=== PATIENT | male | born 1940 | race Caucasian/White ===

== ENCOUNTER → 2017-03-20 | Outpatient (CLI) | payer OTHER ==
[2017-03-20 13:03] LABS: BASO % 0.2 %; BASO ABS # 0.01 K/uL (0-0.2); COMPLETE YES; EOS % 1.5 %; HEMATOCRIT 36.9 % (42-52); IG% 0.2 %; LYMPH % 18.9 %; LYMPH ABS # 0.76 K/uL (1.2-3.4); MEAN CELL VOLUME 97.9 fL (80-100); MEAN CORPUSCULAR HEMOGLOBIN 33.2 pg (25-34); MEAN CORPUSCULAR HGB CONC 33.9 g/dl (32-36); MEAN PLATELET VOLUME 8.9 fL (7.4-10.4); MONO % 10.4 %; NEUT % 68.8 %; PLATELET COUNT 158 K/uL (130-400); RED BLOOD COUNT 3.77 M/uL (4.7-6.1); WHITE BLOOD COUNT 4.03 K/uL (4.8-10.8)
[2017-03-20 13:32] LABS: ALT/SGPT 27 U/L (12-78); AST/SGOT 16 U/L (15-37); BLOOD UREA NITROGEN 19 mg/dl (7-18); BUN/CREATININE RATIO 18.5 (10-20); CALCIUM 9.8 mg/dl (8.5-10.1); CARBON DIOXIDE 28 mmol/L (21-32); CHLORIDE 110 mmol/L (98-107); GLUCOSE 99 mg/dl (70-99); POTASSIUM 4.2 mmol/L (3.5-5.1); SODIUM 143 mmol/L (136-145)
[2017-03-20 13:44] LABS: ALB/GLOB RATIO 1.2 (0.9-2); ALKALINE PHOSPHATASE 107 U/L (45-117); IMMUNOGLOBULN M 61.3 mg/dL (40-230)
[2017-03-21 10:52] LABS: FREE KAPPA 28.8 MG/L (3.3-19.4); FREE KAPPA/LAMBDA RATIO 1.36 (0.26-1.65); FREE LAMBDA 21.1 MG/L (5.7-26.3)
[2017-03-21 23:06] LABS: ALBUMIN 3.5 G/DL (3.8-4.8); GAMMA GLOBULIN 0.7 G/DL (0.8-1.7); IMMUNOFIXATION IGA SERUM 182 MG/DL (81-463); IMMUNOFIXATION IGG SERUM 687 MG/DL (694-1618); IMMUNOFIXATION IGM SERUM 62 MG/DL (48-271); TOTAL PROTEIN 5.8 G/DL (6.2-8.3)
--- NOTE | 2017-03-29 07:29 | CODING QUERY NO DIAGNOSIS ---
: 1940 TREATMENT RENDERED WITHOUT A DIAGNOSIS To promote full compliance with coding requirements relating to patient care, physician participation is requested in all cases of serials librarian uncertainty. Please assist us with providing a diagnosis/symptom for the test(s) below: A diagnosis/symptom was not documented on your Order. A valid diagnosis/symptom is required to bill all insurances. Please remember that we are unable to code a diagnosis of rule out, probable, possible, questionable, or suspected. Tests that require a diagnosis: DOS: 03/20/17 * IMMUNOFIXATION, SERUM DIAGNOSIS: * CBC WITH AUTO DIFFERENTIAL DIAGNOSIS: * COMPREHENSIVE METABOLIC PANEL DIAGNOSIS: * IMMUNOGLOBULIN G, A, M DIAGNOSIS: * FREE KAPPA LAMBDA LIGHT CHAIN DIAGNOSIS: Provider Signature: Date: Thank you aCmi Kamara Health Information Management Once completed, please kindly fax back to [phone] For questions please call [phone]
== END | disposition home or self-care (01) ==
LOC: C.LABMFLN 09:57
PROVIDERS: ATTEND Internal Medicine Hematology & Oncology
DX: Z01.89 Encounter for other specified special examinations (principal)

== ENCOUNTER → 2017-04-08 | Outpatient (CLI) | payer OTHER ==
[2017-04-08 17:08] LABS: CHOLESTEROL/HDL RATIO 3.2; THYROID STIMULATING HORMONE 3.59 uIu/ml (0.300-4.500)
[2017-04-09 06:12] LABS: ESTIMATED AVERAGE GLUCOSE 117 mg/dl; HA1C FLAG Normal (Normal)
--- NOTE | 2017-04-12 10:21 | CODING QUERY MEDICAL NECESSITY ---
CQSUPPORTING DIAGNOSIS NEEDED A supporting diagnosis is required for the test/procedure performed on this patient in order for us to be reimbursed by the patient's insurance. Please provide a supporting diagnosis for the following test/procedure listed below next to the test name along with your signature. *If there is no additional diagnosis for this patient that would support the following test/procedure please document that below next to the test/procedure. Test(s)/Procedure(s) that require a supporting diagnosis: DOS 04/08/17 VITAMIN B12 TEST Provider Signature: Date: Thank you Patito Tobar Health Information Management Once completed, please kindly fax back to [phone] For questions please call [phone]
== END | disposition home or self-care (01) ==
LOC: C.LABBC 15:07
PROVIDERS: ATTEND Internal Medicine Geriatric Medicine
DX: I10 Essential (primary) hypertension (principal); E11.9 Type 2 diabetes mellitus without complications; E83.52 Hypercalcemia; D64.9 Anemia, unspecified; R94.6 Abnormal results of thyroid function studies; M85.80 Other specified disorders of bone density and structure, unspecified site

== ENCOUNTER → 2017-09-19 | Outpatient (CLI) | payer OTHER ==
[2017-09-19 18:28] LABS: BASO % 0.2 %; BASO ABS # 0.01 K/uL (0-0.2); EOS ABS # 0.09 K/uL (0-0.5); HEMATOCRIT 38.8 % (42-52); HEMOGLOBIN 13.1 g/dL (14.0-18.0); IG# 0.01 K/uL (0.00-0.02); LYMPH % 17.9 %; LYMPH ABS # 0.82 K/uL (1.2-3.4); MEAN CELL VOLUME 100.3 fL (80-100); MEAN CORPUSCULAR HEMOGLOBIN 33.9 pg (25-34); MEAN CORPUSCULAR HGB CONC 33.8 g/dl (32-36); MEAN PLATELET VOLUME 9.6 fL (7.4-10.4); MONO % 8.1 %; MONO ABS # 0.37 K/uL (0.11-0.59); NEUT % 71.6 %; NEUT ABS # 3.28 K/uL (1.4-6.5); PLATELET COUNT 164 K/uL (130-400); RED CELL DISTRIBUTION WIDTH CV 13.2 % (11.5-14.5); RED CELL DISTRIBUTION WIDTH SD 47.8 fL (36.4-46.3); WHITE BLOOD COUNT 4.58 K/uL (4.8-10.8)
[2017-09-19 20:32] LABS: ALBUMIN 3.3 gm/dl (3.4-5.0); ALT/SGPT 32 U/L (12-78); AST/SGOT 19 U/L (15-37); BLOOD UREA NITROGEN 22 mg/dl (7-18); CALCIUM 9.9 mg/dl (8.5-10.1); CARBON DIOXIDE 29 mmol/L (21-32); CREATININE 1.09 mg/dl (0.60-1.40); GLUCOSE 123 mg/dl (70-99); POTASSIUM 4.5 mmol/L (3.5-5.1); SODIUM 140 mmol/L (136-145)
[2017-09-19 20:48] LABS: ALKALINE PHOSPHATASE 112 U/L (45-117); TOTAL PROTEIN 6.5 gm/dl (6.4-8.2)
== END | disposition home or self-care (01) ==
LOC: C.LABMFLN 13:52
PROVIDERS: ATTEND Internal Medicine Hematology & Oncology
DX: D47.2 Monoclonal gammopathy (principal)

== ENCOUNTER → 2017-10-07 | Outpatient (CLI) | payer OTHER ==
[2017-10-07 12:25] LABS: BASO % 0.2 %; BASO ABS # 0.01 K/uL (0-0.2); HEMATOCRIT 38.6 % (42-52); HEMOGLOBIN 13.1 g/dL (14.0-18.0); IG# 0.01 K/uL (0.00-0.02); LYMPH % 14.6 %; LYMPH ABS # 0.74 K/uL (1.2-3.4); MEAN CELL VOLUME 99.5 fL (80-100); MEAN CORPUSCULAR HEMOGLOBIN 33.8 pg (25-34); MEAN CORPUSCULAR HGB CONC 33.9 g/dl (32-36); MEAN PLATELET VOLUME 9.4 fL (7.4-10.4); MONO % 10.1 %; MONO ABS # 0.51 K/uL (0.11-0.59); NEUT % 72.9 %; NEUT ABS # 3.69 K/uL (1.4-6.5); PLATELET COUNT 161 K/uL (130-400); RED CELL DISTRIBUTION WIDTH CV 13.3 % (11.5-14.5); RED CELL DISTRIBUTION WIDTH SD 47.4 fL (36.4-46.3); WHITE BLOOD COUNT 5.06 K/uL (4.8-10.8)
[2017-10-07 12:46] LABS: HEMOGLOBIN A1C 5.8 % (4.5-5.6)
[2017-10-07 12:54] LABS: ALBUMIN 3.5 gm/dl (3.4-5.0); ALT/SGPT 29 U/L (12-78); AST/SGOT 17 U/L (15-37); BLOOD UREA NITROGEN 15 mg/dl (7-18); CALCIUM 10.5 mg/dl (8.5-10.1); CARBON DIOXIDE 32 mmol/L (21-32); CHOLESTEROL 95 mg/dl (0-200); CREATININE 1.03 mg/dl (0.60-1.40); GLUCOSE 93 mg/dl (70-99); POTASSIUM 4.1 mmol/L (3.5-5.1); SODIUM 142 mmol/L (136-145)
[2017-10-07 13:03] LABS: ALKALINE PHOSPHATASE 113 U/L (45-117); LDL CHOLESTEROL CALCULATED 46 mg/dl; TOTAL PROTEIN 6.7 gm/dl (6.4-8.2)
== END | disposition home or self-care (01) ==
LOC: C.LABMFLN 10:47
PROVIDERS: ATTEND Internal Medicine Geriatric Medicine
DX: I10 Essential (primary) hypertension (principal); E11.9 Type 2 diabetes mellitus without complications; E78.5 Hyperlipidemia, unspecified; D64.9 Anemia, unspecified; R94.6 Abnormal results of thyroid function studies; E21.3 Hyperparathyroidism, unspecified; M85.80 Other specified disorders of bone density and structure, unspecified site

== ENCOUNTER → 2018-01-08 | Outpatient (CLI) | payer OTHER | END | disposition home or self-care (01) | LOC: C.LABMFLN 14:34 | PROVIDERS: ATTEND Internal Medicine Hematology & Oncology ==

== ENCOUNTER → 2018-04-14 | Outpatient (CLI) | payer OTHER | END | disposition home or self-care (01) | LOC: C.LABMFLN 14:26 | PROVIDERS: ATTEND Internal Medicine Hematology & Oncology | DX: D50.9 Iron deficiency anemia, unspecified (principal) ==

== ENCOUNTER 2021-05-02 14:17 | Inpatient (IN) ==
--- NOTE | 2021-05-02 14:44 | Emergency Department Note ---
Impression & Plan Fluid overload, A-fib, C. difficile diarrhea ED Provider Note Provider: Salazar Quintero MD DATE OF SERVICE: 05/02/2021 CHIEF COMPLAINT: Leg swelling, diarrhea HISTORY OF PRESENT ILLNESS: Patient is a 80-year-old gentleman past medical history including type 2 diabetes, BPH, GERD, hypertension, and CAD status post CABG March 12 of [address] [facility] referred from the cardiolo gist office today due to worsening lower extremity swelling. Patient positive stress test and unstable angina underwent CABG in [place]. Did well regarding to his chest afterwards but developed A. fib at that time and has been maintained on Eliquis and amiodarone. Has been recovering at a rehab/[facility] facility since then. Did have an episode of C. difficile after surgery and was on 3 weeks of oral antibiotics by his 's report. Still residing today at his SNF and went to see his public health specialist. Has been on 3 days of 80 mg Lasix with out significant improvement of lower leg swelling which has developed. Patient himself denies significant chest pain. He denies feeling short of breath but has recently been requiring 2 L of oxygen his nursing facility. Denies abdominal pain but reports still significant diarrhea does not resolve since prior treatment for C. difficile. Denies fever or chills. [employer] recommended he come here for admission and further inpatient care and diuresis. Patient states has not been eating that well. REVIEW OF SYSTEMS: A total of 10 review of systems was obtained and negative except as stated above in the HPI. PAST MEDICAL HISTORY: As noted above MEDICATIONS: Reviewed recently filled medications others question on the which ones he is receiving. SOCIAL HISTORY: , was living at home before surgery but has currently been residing in a [facility] facility since then for rehab PHYSICAL EXAM: GENERAL: alert and oriented in no acute distress on stretcher somewhat fatigued appearing, hard of hearing Head: normocephalic and atraumatic EYES: No injection, discharge or icterus. NECK: Trachea midline. ENT: Mucous membranes pink and moist. LUNGS: Airway patent. No retractions. Breath sounds with diminished bases HEART: Irregularly irregular rate and rhythm. No significant chest wall tenderness with fairly well-healed sternal wound from CABG in February. No significant surrounding erythema or crepitus. ABDOMEN: Soft and non-tender, without guarding or rebound. Nontender umbilical hernia is appreciated. SKIN: Acyanotic, warm, dry, without rashes EXTREMITIES: Patient with 2-3+ lower extremity edema with some Yariel wraps on the bilateral calves. NEUROLOGICAL: No focal deficits. No aphasia. No facial droop or slurred speech. EK bpm atrial fibrillation with PVC. No acute ST segment elevation is noted with a right bundle branch block and left axis and some anterior T wave inversions noted. Compared to previous from January 09 of this year now in atrial fibrillation with PVC and a right bundle branch block. CONTINUOUS CARDIAC MONITORING: was ordered and showed a heart rate of 70s to 90s bpm in atrial fibrillation occasional PVC Patient's laboratory studies and imaging reviewed. Differential includes Infection, dehydration, metabolic abnormality, hypo/hyperglycemia, electrolyte disturbance, anemia, hypoxia, cardiac sources, intracerebral event, toxicologic, neurologic, as well as other pathologies. IMPRESSION/MEDICAL DECISION MAKING: Patient with what appears to be evidence of increased lower extremity swelling has been on several days of Lasix with minimal improvement. Requiring 2 L of oxygen here while at rest when I am in the room although this evidently has been present for a day or 2. Has supposedly been on amiodarone and Eliquis and appears to be in rate controlled A. fib. Question worsening CHF. Less likely to be PE given his anticoagulation status. Does have continued diarrhea but benign abdomen otherwise. C. difficile test to be sent from stools to exclude continued infection after recent treatment. Basic labs and electrolytes as well as TSH were sent. Chest x-ray without significant fluid overload. Labs show mild leukocytosis 12.3. Anemia with hemoglobin of 10 similar to previous around 11. Renal function appears stable. No troponin elevation. proBNP is elevated consistent with likely fluid overload. No evidence of acute UTI. TSH within normal limits today. Given the stable renal function will give IV dose of Lasix at this time to help with diuresis. Discussed with the patient and and will contact the hospitalist further monitor diuresis in the hospital given his complex status. Stool sample pending to exclude C. difficile. Cardiology made aware of his presence here. Stool sample later returned positive for C. difficile. Discussed with pharmacy given a 250 mg dose of vancomycin. Hospitalist was made aware of this as well as the patient at bedside. DIAGNOSIS: Fluid overload, C. difficile diarrhea DISPOSITION: Hospitalist will evaluate Patient was agreeable with this plan. Past Med/Surg History Medical History (Updated 05/02/21 @ 20:03 by Salazar Quintero M.D.) A-fib Anemia Chronic, hgb baseline 12's per chart review CAD in [place] artery Dyslipidemia Gastroesophageal reflux disease Hearing deficit Hypertension Obesity Type 2 diabetes mellitus NIDDM Urinary frequency Surgical History (Updated 05/02/21 @ 17:26 by Ranjit Adler MD) History of carpal tunnel release R/L History of colonoscopy History of repair of rotator cuff Left History of tonsillectomy and adenoidectomy History of tooth extraction S/P angioplasty 1995 S/P CABG (coronary artery bypass graft) Family History Other No family history of adverse response to anesthesia Social History Smoking Status: Former smoker Second Hand Exposure: No; Hx Alcohol Use: Yes Alcohol type: beer Hx Substance Use: No Preferred Language: Namibian Communication Ability: Effective Global Chief Experience Officer Required: No Beliefs That Will Affect Care: None Current Living Situation: Spouse Current Living Situation Comment: Typically lives at home with spouse, was in nursing facility for rehab Other Information That Helps Us Care for You: No Feels Safe at Home: Yes Safety Concerns: Feels Safe At This Time Assistive Devices: Glasses and Hearing Aid - Bilateral Assistive Devices Comment: reading glasses, hearing aids at skilled nursing Allergies Allergies Allergy/AdvReac Type Severity Reaction Status Date / Time Sulfa (Sulfonamide Allergy Unknown Unknown Verified 05/02/21 11:51 Antibiotics) reaction Iodinated Contrast Media Allergy Unknown Verified 05/02/21 11:51 Home Meds Home Medications Medication Instructions Recorded Confirmed aspirin 81 mg tablet,delayed 81 mg PO DAILY #30 tab 06/26/19 05/02/21 release metformin 850 mg tablet 850 mg PO BID tab 06/26/19 05/02/21 multivitamin (Multiple Vitamins) 1 tab PO DAILY 06/26/19 05/02/21 tamsulosin 0.4 mg capsule 0.4 mg PO BID cap 08/25/19 05/02/21 cholecalciferol (vitamin D3) 25 25 mcg PO DAILY 01/05/21 05/02/21 mcg (1,000 unit) tablet (Vitamin D3) cyanocobalamin (vitamin B-12) 5,000 mcg PO DAILY 01/05/21 05/02/21 5,000 mcg capsule Saccharomyces boulardii 250 mg 250 mg PO DAILY cap 05/02/21 05/02/21 capsule (Florastor) amiodarone 200 mg tablet 200 mg PO DAILY 05/02/21 05/02/21 apixaban 5 mg tablet (Eliquis) 5 mg PO BID 05/02/21 05/02/21 ferrous sulfate 325 mg (65 mg 325 mg PO TID tab 05/02/21 05/02/21 iron) tablet furosemide 80 mg tablet (Lasix) 80 mg PO DAILY 05/02/21 05/02/21 levothyroxine 75 mcg capsule 75 mcg PO DAILY 05/02/21 05/02/21 melatonin 5 mg tablet 10 mg PO HS PRN tab 05/02/21 05/02/21 metoprolol succinate 25 mg 12.5 mg PO BID tab 05/02/21 05/02/21 tablet,extended release 24 hr omeprazole 20 mg capsule,delayed 20 mg PO DAILY 05/02/21 05/02/21 release potassium chloride 20 mEq 20 meq PO DAILY 05/02/21 05/02/21 tablet,extended release quetiapine 25 mg tablet (Seroquel) 25 mg PO DAILY 05/02/21 05/02/21 thiamine HCl (vitamin B1) 100 mg 100 mg PO DAILY 05/02/21 05/02/21 tablet Results & Data (ED) Vital Signs Vital Signs - 24 hr 05/02/21 14:17 05/02/21 14:21 05/02/21 14:56 Temperature 36.4 C L Temperature Source Temporal Artery Scan Pulse Rate 84 81 Pulse Rate from SpO2 Sensor 82 Respiratory Rate 18 20 Respiratory Effort / Characteristics Non-Labored Spontaneous Respiratory Depth Normal Respiratory Pattern Regular Blood Pressure 107/55 L Blood Pressure Mean 72 Blood Pressure Position Sitting Pulse Oximetry 91 97 Oxygen Delivery Method Nasal Cannula Room Air Oxygen Flow Rate 1 Sepsis Recent Fever Within 48 Hours No Sepsis New/Unexplained Change in Mental Status N/A Sepsis Action Taken by Nursing No Action Required 05/02/21 15:30 05/02/21 17:13 Temperature Temperature Source Pulse Rate 69 73 Pulse Rate from SpO2 Sensor Respiratory Rate 26 H 28 H Respiratory Effort / Characteristics Respiratory Depth Respiratory Pattern Blood Pressure 147/85 H 128/58 L Blood Pressure Mean 105 81 Blood Pressure Position Pulse Oximetry Oxygen Delivery Method Oxygen Flow Rate Sepsis Recent Fever Within 48 Hours Sepsis New/Unexplained Change in Mental Status Sepsis Action Taken by Nursing Laboratory Data Result diagrams: 05/02/21 14:00 05/02/21 14:00 Lab Results 05/02/21 05/02/21 05/02/21 Range/Units 14:00 14:00 14:00 WBC 12.37 H (4.8-10.8) K/uL RBC 3.07 L (4.7-6.1) M/uL Hgb 10.0 L (14.0-18.0) g/dL Hct 33.2 L (42-52) % MCV 108.1 H (80-100) fL MCH 32.6 (25-34) pg MCHC 30.1 L (32-36) g/dL RDW Std Deviation 63.4 H (36.4-46.3) fL RDW Coeff of Savi 16.1 H (11.5-14.5) % Plt Count 243 (130-400) K/uL MPV 9.3 (7.4-10.4) fL Immature Gran % (Auto) 0.5 % Neut % (Auto) 88.0 % Lymph % (Auto) 7.4 % [place] % (Auto) 3.7 % Eos % (Auto) 0.3 % Baso % (Auto) 0.1 % Neut # (Auto) 10.88 H (1.4-6.5) K/uL Lymph # (Auto) 0.92 L (1.2-3.4) K/uL [place] # (Auto) 0.46 (0.11-0.59) K/uL Eos # (Auto) 0.04 (0-0.5) K/uL Baso # (Auto) 0.01 (0-0.2) K/uL Immature Gran # (Auto) 0.06 H (0.00-0.02) K/uL PT 11.9 (9.0-12.0) Seconds INR 1.2 H (0.9-1.1) APTT 25.4 (21.0-31.0) Seconds PTT Ratio 1.0 Sodium 139 (136-145) mmol/L Potassium 3.5 (3.5-5.1) mmol/L Chloride 97 L (98-107) mmol/L Carbon Dioxide 38 H (21-32) mmol/L Anion Gap 4.0 (3-11) BUN 21 H (7-18) mg/dl Creatinine 0.92 (0.6-1.4) mg/dl Est Cr Clr Drug Dosing 62.3 ml/min Est GFR ( Amer) 89.5 ml/min Est GFR (Non-Af Amer) 77.2 ml/min BUN/Creatinine Ratio 23.1 H (10-20) Glucose 104 H (70-99) mg/dl Calcium 10.4 H (8.5-10.1) mg/dl Magnesium 1.5 L (1.8-2.4) mg/dl Total Bilirubin 0.3 (0.2-1) mg/dl AST 9 L (15-37) U/L ALT 11 L (12-78) U/L Alkaline Phosphatase 74 (45-117) U/L Troponin I < 0.015 (0-0.045) ng/ml NT-Pro-B Natriuret Pep 2509 H (0-1800) pg/ml Total Protein 5.6 L (6.4-8.2) gm/dl Albumin 2.2 L (3.4-5.0) gm/dl Globulin 3.4 (2.5-4.0) gm/dl Albumin/Globulin Ratio 0.6 L (0.9-2) Lipase 39 L (73-393) U/L TSH 4.360 (0.300-4.500) uIu/ml Urine Color Urine Appearance (Clear) Urine pH (4.5-7.5) Ur Specific [place] (1.000-1.030) Urine Protein (Negative) Urine Glucose (UA) (Negative) Urine Ketones (Negative) Urine Blood (Negative) Urine Nitrite (Negative) Urine Bilirubin (Negative) Urine Urobilinogen (Negative) Ur Leukocyte Esterase (Negative) Urine WBC (Auto) (0-5) /hpf Urine RBC (Auto) (0-4) /hpf U Hyaline Cast (Auto) (0-5) /lpf U Epithel Cells (Auto) (0-5) /lpf Urine Bacteria (Auto) (Negative) Stl C. diff Tox B Gene (Neg) Stl C.difficile Tox A&B (Negative) COVID-19 Eval Order SARS-CoV-2 (PCR) (Negative) 05/02/21 05/02/21 05/02/21 Range/Units 15:27 15:27 15:27 WBC (4.8-10.8) K/uL RBC (4.7-6.1) M/uL Hgb (14.0-18.0) g/dL Hct (42-52) % MCV (80-100) fL MCH (25-34) pg MCHC (32-36) g/dL RDW Std Deviation (36.4-46.3) fL RDW Coeff of Savi (11.5-14.5) % Plt Count (130-400) K/uL MPV (7.4-10.4) fL Immature Gran % (Auto) % Neut % (Auto) % Lymph % (Auto) % [place] % (Auto) % Eos % (Auto) % Baso % (Auto) % Neut # (Auto) (1.4-6.5) K/uL Lymph # (Auto) (1.2-3.4) K/uL [place] # (Auto) (0.11-0.59) K/uL Eos # (Auto) (0-0.5) K/uL Baso # (Auto) (0-0.2) K/uL Immature Gran # (Auto) (0.00-0.02) K/uL PT (9.0-12.0) Seconds INR (0.9-1.1) APTT (21.0-31.0) Seconds PTT Ratio Sodium (136-145) mmol/L Potassium (3.5-5.1) mmol/L Chloride (98-107) mmol/L Carbon Dioxide (21-32) mmol/L Anion Gap (3-11) BUN (7-18) mg/dl Creatinine (0.6-1.4) mg/dl Est Cr Clr Drug Dosing ml/min Est GFR ( Amer) ml/min Est GFR (Non-Af Amer) ml/min BUN/Creatinine Ratio (10-20) Glucose (70-99) mg/dl Calcium (8.5-10.1) mg/dl Magnesium (1.8-2.4) mg/dl Total Bilirubin (0.2-1) mg/dl AST (15-37) U/L ALT (12-78) U/L Alkaline Phosphatase (45-117) U/L Troponin I (0-0.045) ng/ml NT-Pro-B Natriuret Pep (0-1800) pg/ml Total Protein (6.4-8.2) gm/dl Albumin (3.4-5.0) gm/dl Globulin (2.5-4.0) gm/dl Albumin/Globulin Ratio (0.9-2) Lipase (73-393) U/L TSH (0.300-4.500) uIu/ml Urine Color Yellow Urine Appearance Clear (Clear) Urine pH 5.0 (4.5-7.5) Ur Specific [place] 1.009 (1.000-1.030) Urine Protein Negative (Negative) Urine Glucose (UA) Negative (Negative) Urine Ketones Negative (Negative) Urine Blood Negative (Negative) Urine Nitrite Negative (Negative) Urine Bilirubin Negative (Negative) Urine Urobilinogen Negative (Negative) Ur Leukocyte Esterase 1+ H (Negative) Urine WBC (Auto) 1-5 (0-5) /hpf Urine RBC (Auto) 0-4 (0-4) /hpf U Hyaline Cast (Auto) 1-5 (0-5) /lpf U Epithel Cells (Auto) 0-5 (0-5) /lpf Urine Bacteria (Auto) Negative (Negative) Stl C. diff Tox B Gene (Neg) Stl C.difficile Tox A&B (Negative) COVID-19 Eval Order Covid19 at [facility] SARS-CoV-2 (PCR) NEGATIVE (Negative) 05/02/21 Range/Units 17:40 WBC (4.8-10.8) K/uL RBC (4.7-6.1) M/uL Hgb (14.0-18.0) g/dL Hct (42-52) % MCV (80-100) fL MCH (25-34) pg MCHC (32-36) g/dL RDW Std Deviation (36.4-46.3) fL RDW Coeff of Savi (11.5-14.5) % Plt Count (130-400) K/uL MPV (7.4-10.4) fL Immature Gran % (Auto) % Neut % (Auto) % Lymph % (Auto) % [place] % (Auto) % Eos % (Auto) % Baso % (Auto) % Neut # (Auto) (1.4-6.5) K/uL Lymph # (Auto) (1.2-3.4) K/uL [place] # (Auto) (0.11-0.59) K/uL Eos # (Auto) (0-0.5) K/uL Baso # (Auto) (0-0.2) K/uL Immature Gran # (Auto) (0.00-0.02) K/uL PT (9.0-12.0) Seconds INR (0.9-1.1) APTT (21.0-31.0) Seconds PTT Ratio Sodium (136-145) mmol/L Potassium (3.5-5.1) mmol/L Chloride (98-107) mmol/L Carbon Dioxide (21-32) mmol/L Anion Gap (3-11) BUN (7-18) mg/dl Creatinine (0.6-1.4) mg/dl Est Cr Clr Drug Dosing ml/min Est GFR ( Amer) ml/min Est GFR (Non-Af Amer) ml/min BUN/Creatinine Ratio (10-20) Glucose (70-99) mg/dl Calcium (8.5-10.1) mg/dl Magnesium (1.8-2.4) mg/dl Total Bilirubin (0.2-1) mg/dl AST (15-37) U/L ALT (12-78) U/L Alkaline Phosphatase (45-117) U/L Troponin I (0-0.045) ng/ml NT-Pro-B Natriuret Pep (0-1800) pg/ml Total Protein (6.4-8.2) gm/dl Albumin (3.4-5.0) gm/dl Globulin (2.5-4.0) gm/dl Albumin/Globulin Ratio (0.9-2) Lipase (73-393) U/L TSH (0.300-4.500) uIu/ml Urine Color Urine Appearance (Clear) Urine pH (4.5-7.5) Ur Specific [place] (1.000-1.030) Urine Protein (Negative) Urine Glucose (UA) (Negative) Urine Ketones (Negative) Urine Blood (Negative) Urine Nitrite (Negative) Urine Bilirubin (Negative) Urine Urobilinogen (Negative) Ur Leukocyte Esterase (Negative) Urine WBC (Auto) (0-5) /hpf Urine RBC (Auto) (0-4) /hpf U Hyaline Cast (Auto) (0-5) /lpf U Epithel Cells (Auto) (0-5) /lpf Urine Bacteria (Auto) (Negative) Stl C. diff Tox B Gene Positive Cdiff Gene H (Neg) Stl C.difficile Tox A&B Positive Cdiff Toxin A* (Negative) COVID-19 Eval Order SARS-CoV-2 (PCR) (Negative) Administered Medications Apixaban (Apixaban 5 Mg Tablet) 5 mg PO BID ARCADIO Stop: 06/01/21 20:59 Last Admin: 05/02/21 21:43 Dose: 5 mg Documented by: [id number] Ferrous Sulfate (Ferrous Sulfate 325 Mg Tab) 325 mg PO TID ARCADIO Stop: 06/01/21 20:59 Last Admin: 05/02/21 21:42 Dose: 325 mg Documented by: [id number] Magnesium Sulfate/Dextrose (Magnesium Sulfate / D5w) 1 gm in 100 mls @ 50 mls/hr IV Q2H ARCADIO Stop: 05/02/21 23:29 Last Infusion: 05/02/21 21:30 Dose: 0 mls/hr Documented by: [id number] Admin: 05/02/21 19:27 Dose: 50 mls/hr Documented by: [id number] Metoprolol Succinate (Metoprolol Succ 25mg Ext Rel Tab) 12.5 mg PO BID ARCADIO Stop: 06/01/21 20:59 Last Admin: 05/02/21 21:43 Dose: 12.5 mg Documented by: [id number] Tamsulosin HCl (Tamsulosin Hcl 0.4 Mg Cap) 0.8 mg PO HS ARCADIO Stop: 06/01/21 20:59 Last Admin: 05/02/21 21:42 Dose: 0.8 mg Documented by: [id number] Discontinued Medications Furosemide (Furosemide 40 Mg/4 Ml Vial) 40 mg IV NOW STA Stop: 05/02/21 17:01 Last Admin: 05/02/21 17:21 Dose: 40 mg Documented by: [id number] Magnesium Sulfate/Dextrose (Magnesium Sulfate 1gm / D5w Bag) Confirm Administered Dose 1 gm IV .STK-MED ONE Stop: 05/02/21 19:13 Last Admin: 05/02/21 19:22 Dose: Not Given Documented by: [id number] Raspberry (Raspberry Syrup 5 Ml Udp) 5 ml PO ONE STA Stop: 05/02/21 19:58 Last Admin: 05/02/21 21:42 Dose: 5 ml Documented by: [id number] Vancomycin HCl (Vancomycin Hcl 250 Mg/5 Ml Soln) 250 mg PO ONE STA Stop: 05/02/21 19:58 Last Admin: 05/02/21 21:42 Dose: 250 mg Documented by: [id number] Imaging Data Radiologist's Impression: Chest X-Ray 05/02/21 14:39 SINGLE VIEW CHEST CLINICAL HISTORY: Dysrhythmia. Leg swelling. FINDINGS: An AP, portable, upright chest radiograph is compared to study dated 01/09/2021. The examination is degraded by portable technique and apical lordotic positioning. The patient is status post midline sternotomy. The heart is enlarged. The pulmonary vasculature is noncongested. There is bibasilar scarring/atelectasis. No airspace consolidation or large pleural effusion is identified. No pneumothorax is seen. The skeletal structures are osteopenic. The bony thorax is grossly intact. IMPRESSION: Cardiomegaly with no acute cardiopulmonary abnormality. ACT 112: Negative or not required by law. Electronically signed by: Angelo Billingsley M.D. 05/02/2021 5:09 PM Discharge Plan Visit Data Chief Complaint: Cardiac Assessment Stated Complaint: AFIB ED Provider: Salazar Quintero Discharge Problem: Fluid overload, A-fib, C. difficile diarrhea Patient Disposition: Admitted As Inpatient Discharge Instructions Interventions: ED Discharge Assessment Last Done: 05/02/21 20:17 Discharge Problem: Fluid overload Qualifiers: Hypervolemia type: unspecified Qualified Code(s): E87.70 - Fluid overload, unspecified A-fib Qualifiers: Atrial fibrillation type: unspecified Qualified Code(s): I48.91 - Unspecified atrial fibrillation
[2021-05-02 15:23] LABS: Basophils # (auto) 0.01 K/uL (0-0.2); Basophils % (auto) 0.1 %; Eosinophils # (auto) 0.04 K/uL (0-0.5); Eosinophils % (auto) 0.3 %; Hematocrit (blood only) 33.2 % (42-52); Immature Granulocytes # (auto) 0.06 K/uL (0.00-0.02); Immature Granulocytes % (auto) 0.5 %; Lymphocytes # (auto) 0.92 K/uL (1.2-3.4); Lymphocytes % (auto) 7.4 %; Mean Corpuscular Hemoglobin 32.6 pg (25-34); Mean Corpuscular Hgb Conc 30.1 g/dL (32-36); Mean Corpuscular Volume 108.1 fL (80-100); Mean Platelet Volume 9.3 fL (7.4-10.4); Monocytes # (auto) 0.46 K/uL (0.11-0.59); Monocytes % (auto) 3.7 %; Neutrophils # (auto) 10.88 K/uL (1.4-6.5); Platelet Count 243 K/uL (130-400); RDW Coefficient of Variation 16.1 % (11.5-14.5); RDW Standard Deviation 63.4 fL (36.4-46.3); Red Blood Count 3.07 M/uL (4.7-6.1); White Blood Count 12.37 K/uL (4.8-10.8)
[2021-05-02 15:39] LABS: INR 1.2 (0.9-1.1); Partial Thromboplastin Time 25.4 Seconds (21.0-31.0); Prothrombin Time 11.9 Seconds (9.0-12.0)
[2021-05-02 15:40] LABS: Alanine Aminotransferase 11 U/L (12-78); Albumin Level 2.2 gm/dl (3.4-5.0); Aspartate Aminotransferase 9 U/L (15-37); BUN Creatinine Ratio 23.1 (10-20); Blood Urea Nitrogen 21 mg/dl (7-18); Calcium 10.4 mg/dl (8.5-10.1); Carbon Dioxide 38 mmol/L (21-32); Chloride 97 mmol/L (98-107); Creatinine Clr Calc Pharmacy 62.3 ml/min; Est GFR (African American) 89.5 ml/min; Est GFR (Non-African American) 77.2 ml/min; Glucose 104 mg/dl (70-99); Lipase 39 U/L (73-393); Magnesium 1.5 mg/dl (1.8-2.4); Potassium 3.5 mmol/L (3.5-5.1); Sodium 139 mmol/L (136-145)
[2021-05-02 15:41] LABS: Appearance Urine Clear (Clear); Bacteria Urine Automated Negative (Negative); Bilirubin Urine Negative (Negative); Blood Urine Negative (Negative); Color Urine Yellow; Epithelial Cell Urine Auto 0-5 /lpf (0-5); Glucose Urine UA Negative (Negative); Ketones Urine Negative (Negative); Leukocyte Esterase Urine 1+ (Negative); Nitrite Urine Negative (Negative); Protein Urine Negative (Negative); RBC Urine Automated 0-4 /hpf (0-4); Specific Gravity Urine 1.009 (1.000-1.030); Urobilinogen Urine Negative (Negative)
[2021-05-02 15:51] LABS: Albumin Globulin Ratio 0.6 (0.9-2); Alkaline Phosphatase 74 U/L (45-117); Bilirubin,Total 0.3 mg/dl (0.2-1); Globulin 3.4 gm/dl (2.5-4.0); NT Pro B Type Natriuretic Pept 2509 pg/ml (0-1800); Total Protein 5.6 gm/dl (6.4-8.2); Troponin I < 0.015 ng/ml (0-0.045)
[2021-05-02] MEDS ORDERED: FUROSEMIDE 40 MG/4 ML VIAL IV STA (17:00)
--- NOTE | 2021-05-02 17:07 | Electrocardiogram Report ---
Test Reason : Blood Pressure : / mmHG Vent. Rate : 085 BPM Atrial Rate : 079 BPM P-R Int : 000 ms QRS Dur : 162 ms QT Int : 394 ms P-R-T Axes : 000 -75 041 degrees QTc Int : 468 ms Atrial fibrillation with premature ventricular or aberrantly conducted complexes Left axis deviation Right bundle branch block Abnormal ECG When compared with ECG of 09-JAN-2021 11:47, Atrial fibrillation has replaced Sinus rhythm Right bundle branch block has replaced Non-specific intra-ventricular conduction block Confirmed by Ananth Chicas ([id number]) on 05/02/2021 5:06:43 PM Referred By: Confirmed By:Ananth Chicas
--- NOTE | 2021-05-02 17:10 | XRay Report ---
SINGLE VIEW CHEST CLINICAL HISTORY: Dysrhythmia. Leg swelling. FINDINGS: An AP, portable, upright chest radiograph is compared to study dated 01/09/2021. The examina tion is degraded by portable technique and apical lordotic positioning. The patient is status post mi dline sternotomy. The heart is enlarged. The pulmonary vasculature is noncongested. There is bibasila r scarring/atelectasis. No airspace consolidation or large pleural effusion is identified. No pneumot horax is seen. The skeletal structures are osteopenic. The bony thorax is grossly intact. IMPRESSION: Cardiomegaly with no acute cardiopulmonary abnormality. ACT 112: Negative or not required by law. Electronically signed by: Angelo Billingsley M.D. 05/02/2021 5:09 PM
--- NOTE | 2021-05-02 17:17 | Cardiology Consultation ---
Date of Consultation May 02, 2021 Assessment & Plan (1) Acute heart failure with preserved ejection fraction: (2) CAD in [place] artery: (3) S/P CABG (coronary artery bypass graft): (4) Persistent atrial fibrillation: (5) Hypertension: (6) Dyslipidemia: (7) Hypomagnesemia: ASSESSMENT/PLAN: 1. Acute HFpEF (Heart failure with preserved EF): He appears to be significantly hypervolemic despite increased diuretic dose. He also is now requiring oxygen. Recommend admission for more aggressive heart failure treatment. Would recommend at least 40 mg of IV Lasix b.i.d. but increase as necessary for net negative fluid balance of at least 1-2 L in 24 hours. Monitor renal function and electrolytes closely. Replete magnesium. Low-sodium diet, less than 2000 mg daily. Strict I&Os and daily weights. Heart failure program referral. 2. CAD s/p CABG x 3: No angina. Continue beta-hari. Had been on ARB in the past but was discontinued following hospitalization at [facility]. Had been on atorvastatin 40 mg daily and would recommend resuming high-intensity statin therapy. Recommend cardiac rehab on discharge. 3. Atrial fibrillation: Was noted to have postoperative atrial fibrillation following CABG but in AFib today on amiodarone 200 mg daily. If he does not convert to sinus rhythm, would consider cardioversion electively verses adopting rate control strategy. Would continue amiodarone for now as well as anticoagulation therapy without interruption. Continue beta-hari. 4. Hypertension: Blood pressure acceptable. Continue outpatient regimen. 5. Dyslipidemia: Had been on high-intensity statin therapy and according to discharge summary from [facility], it was to be continued on discharge. For some reason he is not receiving it at his current rehab facility. Recommend resuming atorvastatin 40 mg daily on admission. 6. Hypo magnesemia: Replete magnesium, especially with more aggressive diuretic therapy. 7. Possible cellulitis: Erythema of his bilateral lower extremities could represent cellulitis. Will defer to primary hospitalist service. Consider antibiotic therapy if felt to be necessary. 8. Diarrhea/C diff: Was being treated for C diff with improvement in his stools but since worsening diarrhea. Recommend evaluation and treatment if appro priate. 9. Disposition: Multiple medical issues as noted above. Recommend hospital admission as he will likely require multiple days of diuresis and treatment for other possible issues such as cellulitis and C diff pending evaluation by hospitalist service. Patient care discussed with Dr. Quintero of the emergency department and Dr. Montenegro of the admitting hospitalist service. Highly complex medical issues. History of Present Illness Reason for Consultation: CHF/Afib Requesting Physician: Dr. Quintero Attending Physician: Dr. Quintero History of Present Illness Mr. Shaver ('Sanders Be') is a very pleasant 80-year-old gentleman with a history significant for CAD s/p CABG x 3, post-CABG atrial fibrillation, hypertension, dyslipidemia, and type 2 diabetes. He has had the following studies/procedures: 1. Cardiac catheterization 04/16/1996: [facility] in [place]. Circumflex 85% status post PTCA with residual 20-25%. RCA tandem lesions 70-99% status post PTCA 30% with spiral dissection. Unable to deploy stent around the calcified bend of the circumflex. 2. Cardiac catheterization 02/25/2007 at [facility]: Mid LAD 50%. Proximal circumflex 50%. OM1 60%. Proximal RCA 30%. No . Moderately elevated LVEDP. Normal wall motion.. 3. Dobutamine stress echo 12/20/2010: Negative dobutamine echo and ECG at 93% MPHR. Rare PVC. 4. Echo 11/06/2017: Normal LV size, wall motion, systolic function. EF 60-65%. Mild LVH. Type 1 diastolic dysfunction. Moderate MAC. RVSP 23. Enhanced with IV definity. 5. Nuclear stress 01/19/2021: Abnormal suggesting inferior and inferolateral ischemia. Possible small infarct in the apical inferior and apical inferolateral territory. EF 65%. 6. Cardiac catheterization 02/21/2021 [place] : Proximal LAD 30-40%. Mid LAD 50- 70% (IFR 0.82 with FFR of 0.71) at bifurcation of large diagonal. Mid circumflex 50-70% (FFR 0.78). Large Proximal OM3 30%. Proximal RCA 70%. Diffuse mid RCA 40-50%. LVEDP 10. No aortic stenosis. Profound bradycardia occurred with adenosine administration during circumflex evaluation. 7. CABG x3 03/14/2021 [facility]: MCCALL to LAD; SVG to RCA; SVG to OM1. Prolonged hospital stay complicated by postoperative AFib, ileus, delirium, and C diff. He was seen in the office today for hospital follow-up from CABG. He was last evaluated remotely by [facility] on 04/07/2021. At that time he apparently had improvement of lower extremity swelling for which Lasix 40 mg twice daily was continued on discharge from [facility]. He has been at [facility]. Unfortunately, his lower extremity edema has been worsening to the point where at times he has had weeping. They have been wrapping his legs but no improvement. He is taking Lasix 80 mg once daily now, once again with no improvement of his edema. Dyspnea with exertion still occurs but overall he believes it is better than it was prior to CABG. He has been experiencing some orthopnea and describes his appetite as horrible. He is now on supplemental oxygen, which was not the case prior to his hospitalization. He denies chest pain, syncope, near-syncope, palpitations, or bleeding. He was discharged on amiodarone and Eliquis due to postoperative atrial fibrillation. His had many questions today. She asked about how long he should continue with supplemental oxygen. She states that he underwent some testing at rehab recently but no results yet. She questioned the swelling and seeping of fluid from his legs. He has once again developed diarrhea 3-4 episodes per day after having some form stools following treatment for C diff. She has concerns about chronic polyuria and had questions about his many medication changes following his [facility] discharge. She has concerns about his anemia for which he follows with Dr. lopez. He is now taking iron supplementation. She also had questions about thyroid supplementation. We discussed her concerns to the best of my ability. Review of systems: As above. Family history: No known premature CAD. Social history: Quit smoking greater than 50 years ago. Occasional alcohol. No drugs. and lives with his . Two sons. No grand children. He enjoys hunting. 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 His accompanies him today. Allergies Allergy/AdvReac Type Severity Reaction Status Date / Time Sulfa (Sulfonamide Allergy Unknown Unknown Verified 05/02/21 11:51 Antibiotics) reaction Iodinated Contrast Media Allergy Unknown Verified 05/02/21 11:51 Home Medications Medication Instructions Recorded Confirmed Type aspirin 81 mg tablet,delayed 81 mg PO DAILY #30 tab 06/26/19 05/02/21 History release metformin 850 mg tablet 850 mg PO BID tab 06/26/19 05/02/21 History multivitamin (Multiple Vitamins) 1 tab PO DAILY 06/26/19 05/02/21 History tamsulosin 0.4 mg capsule 0.4 mg PO BID cap 08/25/19 05/02/21 History cholecalciferol (vitamin D3) 25 25 mcg PO DAILY 01/05/21 05/02/21 History mcg (1,000 unit) tablet (Vitamin D3) cyanocobalamin (vitamin B-12) 5,000 mcg PO DAILY 01/05/21 05/02/21 History 5,000 mcg capsule Saccharomyces boulardii 250 mg 250 mg PO DAILY cap 05/02/21 05/02/21 History capsule (Florastor) amiodarone 200 mg tablet 200 mg PO DAILY 05/02/21 05/02/21 History apixaban 5 mg tablet (Eliquis) 5 mg PO BID 05/02/21 05/02/21 History ferrous sulfate 325 mg (65 mg 325 mg PO TID tab 05/02/21 05/02/21 History iron) tablet furosemide 80 mg tablet (Lasix) 80 mg PO DAILY 05/02/21 05/02/21 History levothyroxine 75 mcg capsule 75 mcg PO DAILY 05/02/21 05/02/21 History melatonin 5 mg tablet 10 mg PO HS PRN tab 05/02/21 05/02/21 History metoprolol succinate 25 mg 12.5 mg PO BID tab 05/02/21 05/02/21 History tablet,extended release 24 hr omeprazole 20 mg capsule,delayed 20 mg PO DAILY 05/02/21 05/02/21 History release potassium chloride 20 mEq 20 meq PO DAILY 05/02/21 05/02/21 History tablet,extended release quetiapine 25 mg tablet (Seroquel) 25 mg PO DAILY 05/02/21 05/02/21 History thiamine HCl (vitamin B1) 100 mg 100 mg PO DAILY 05/02/21 05/02/21 History tablet Patient History Medical History (Updated 05/02/21 @ 17:26 by Ranjit Adler MD) A-fib Anemia Chronic, hgb baseline 12's per chart review CAD in [place] artery Dyslipidemia Gastroesophageal reflux disease Hearing deficit Hypertension Obesity Type 2 diabetes mellitus NIDDM Urinary frequency Surgical History (Updated 05/02/21 @ 17:26 by Ranjit Adler MD) History of carpal tunnel release R/L History of colonoscopy History of repair of rotator cuff Left History of tonsillectomy and adenoidectomy History of tooth extraction S/P angioplasty 1995 S/P CABG (coronary artery bypass graft) Family History Other No family history of adverse response to anesthesia Social History Smoking Status: Former smoker Second Hand Exposure: No; Hx Alcohol Use: No Hx Substance Use: No Preferred Language: Maori Account Collector Required: No Beliefs That Will Affect Care: None Current Living Situation: Spouse Feels Safe at Home: Yes Assistive Devices: None Physical Exam Physical Exam: Gen.: No acute distress. Alert. HEENT: Anicteric sclera. Neck: Mild JVD with hepatic jugular reflux. Cardiac: PMI was nonpalpable. No ventricular heave. Irregularly irregular with normal rate. Normal S1-S2. 1/6 early peaking systolic ejection murmur best heard at the right upper sternal border. No rubs or gallops. Pulmonary: Clear to auscultation bilaterally without wheezes, rales, or rhonchi. Abdomen: Soft, nontender, nondistended, with normoactive bowel sounds. No bruits noted. Extremities: 2+ radial pulses bilaterally. 2+ posterior tibialis pulses bilat erally. 3 to 4+ bilateral pitting edema to the knees with 1 to 2+ pitting edema from the knees to the hips. No cyanosis. Bilateral lower extremities erythematous to just below the knees, right more so than the left. Psychiatric: Affect appears appropriate. Chest: Sternotomy site is clean, dry, and intact without erythema or discharge. Results & Data ([facility]) Vital Signs (Past 12 Hours) Vital Signs Temp Pulse Resp BP Pulse Ox 05/02/21 14:21 36.4 C L 84 18 107/55 L 91 Laboratory Results Laboratory Results - last 24 hr 05/02/21 05/02/21 05/02/21 14:00 14:00 14:00 WBC 12.37 H RBC 3.07 L Hgb 10.0 L Hct 33.2 L MCV 108.1 H MCH 32.6 MCHC 30.1 L RDW Std Deviation 63.4 H RDW Coeff of Savi 16.1 H Plt Count 243 MPV 9.3 Immature Gran % (Auto) 0.5 Neut % (Auto) 88.0 Lymph % (Auto) 7.4 Mower % (Auto) 3.7 Eos % (Auto) 0.3 Baso % (Auto) 0.1 Neut # (Auto) 10.88 H Lymph # (Auto) 0.92 L Mower # (Auto) 0.46 Eos # (Auto) 0.04 Baso # (Auto) 0.01 Immature Gran # (Auto) 0.06 H PT 11.9 INR 1.2 H APTT 25.4 PTT Ratio 1.0 Sodium 139 Potassium 3.5 Chloride 97 L Carbon Dioxide 38 H Anion Gap 4.0 BUN 21 H Creatinine 0.92 Est Cr Clr Drug Dosing 62.3 Est GFR ( Amer) 89.5 Est GFR (Non-Af Amer) 77.2 BUN/Creatinine Ratio 23.1 H Glucose 104 H Calcium 10.4 H Magnesium 1.5 L Total Bilirubin 0.3 AST 9 L ALT 11 L Alkaline Phosphatase 74 Troponin I < 0.015 NT-Pro-B Natriuret Pep 2509 H Total Protein 5.6 L Albumin 2.2 L Globulin 3.4 Albumin/Globulin Ratio 0.6 L Lipase 39 L TSH 4.360 Urine Color Urine Appearance Urine pH Ur Specific Mcintosh Urine Protein Urine Glucose (UA) Urine Ketones Urine Blood Urine Nitrite Urine Bilirubin Urine Urobilinogen Ur Leukocyte Esterase Urine WBC (Auto) Urine RBC (Auto) U Hyaline Cast (Auto) U Epithel Cells (Auto) Urine Bacteria (Auto) COVID-19 Eval Order SARS-CoV-2 (PCR) 05/02/21 05/02/21 05/02/21 15:27 15:27 15:27 WBC RBC Hgb Hct MCV MCH MCHC RDW Std Deviation RDW Coeff of Savi Plt Count MPV Immature Gran % (Auto) Neut % (Auto) Lymph % (Auto) Mower % (Auto) Eos % (Auto) Baso % (Auto) Neut # (Auto) Lymph # (Auto) Mower # (Auto) Eos # (Auto) Baso # (Auto) Immature Gran # (Auto) PT INR APTT PTT Ratio Sodium Potassium Chloride Carbon Dioxide Anion Gap BUN Creatinine Est Cr Clr Drug Dosing Est GFR ( Amer) Est GFR (Non-Af Amer) BUN/Creatinine Ratio Glucose Calcium Magnesium Total Bilirubin AST ALT Alkaline Phosphatase Troponin I NT-Pro-B Natriuret Pep Total Protein Albumin Globulin Albumin/Globulin Ratio Lipase TSH Urine Color Yellow Urine Appearance Clear Urine pH 5.0 Ur Specific Mcintosh 1.009 Urine Protein Negative Urine Glucose (UA) Negative Urine Ketones Negative Urine Blood Negative Urine Nitrite Negative Urine Bilirubin Negative Urine Urobilinogen Negative Ur Leukocyte Esterase 1+ H Urine WBC (Auto) 1-5 Urine RBC (Auto) 0-4 U Hyaline Cast (Auto) 1-5 U Epithel Cells (Auto) 0-5 Urine Bacteria (Auto) Negative COVID-19 Eval Order Covid19 at [facility] SARS-CoV-2 (PCR) NEGATIVE Diagnostic Findings Multiple records reviewed including [facility] discharge summary, cardiac catheterization report from [facility], CT surgery follow-up notes, ECG, labs. ECG 05/02/2021 at 12:39 p.m.: AFib 80 beats per minute. RBBB. Left axis deviation. Inferior infarct. Chest x-ray 05/02/2021 cardiomegaly with no acute cardiopulmonary abnormality per Radiology. Image not available for review. PG Care Time/CCT Total # of Minutes Spent Total Time Spent with Patient: Total time spent is greater than 50% in coordination of care (as documented) at patient's floor/unit and/or counseling patient: Coding Level of Care Code 92461 Initial Inpt Care Lvl 3 Diagnoses S/P CABG (coronary artery bypass graft) Z95.1 CAD in [place] artery I25.10 Acute heart failure with preserved ejection fraction I50.31 Persistent atrial fibrillation I48.19 Hypertension I10 Dyslipidemia E78.5 Hypomagnesemia E83.42
--- NOTE | 2021-05-02 18:49 | History & Physical Report ---
Date of Service May 02, 2021 Assessment & Plan (1) Acute heart failure with preserved ejection fraction: Plan: Patient admitted with above problem. Will place IV diuretic 40 mg BID. will reorder BNP, BMP and monitor. check Is and Os. keep negative balance. (2) Leg swelling: Plan: At this time, do not belive this to be cellulitis. will hold off antibitoics and obtain morning labs. (3) Persistent atrial fibrillation: Plan: resume apixaban and beta blockers (4) S/P CABG (coronary artery bypass graft): Plan: as staed above. (5) Fluid overload: Plan: cotninue to diurese patient. (6) C. difficile diarrhea: Plan: c diff toxin and gene were positive. will place on vancomycin. (7) Dyslipidemia: Plan: resume home meds (8) Type 2 diabetes mellitus: Plan: on metformin as outpatient. will check fasting blood sugar. will check a1c. (9) BPH (benign prostatic hyperplasia): Plan: resume home meds (10) Hypertension: Plan: BP at goal. will resume home meds (11) Hypomagnesemia: Plan: ordered 2 gr IV History of Present Illness Chief Complaint: worsening lower extremity edema. Primary Care Provider: DO Karen Ruby 80-year-old gentleman with a history significant for CAD s/p CABG x 3, post-CABG atrial fibrillation, hypertension, dyslipidemia, and type 2 diabetes. Patient was brought to the ER from Dr. Adler's office. He was being seen for hospital follow up for CABG. Patient had a f/u by [facility] on 04/07/21 where he impr jacklyn with increased lasix. His lower extremity edema had improved. Since then he has been at [facility]. However his lower extremity edema has worsened despite increased lasix dose of 80 mg. Patient reports he also has dypsnea on exertion and orthopnea. Patient also reports having diarrhea for the past week, about 4 times a day and he states stools are black. He attributes the color to his iron supplement.s He denies N/V, WEIGHT LOSS, abdominal pain, focal weakness, chest pain, syncope, near-syncope, palpitations, or bleeding. He was discharged on amiodarone and Eliquis due to postoperative atrial fibrillation. Recent Cardiac procedures: (noted from Cardiology) 1. Cardiac catheterization 04/16/1996: [facility] in [place]. Circumflex 85% status post PTCA with residual 20-25%. RCA tandem lesions 70-99% status post PTCA 30% with spiral dissection. Unable to deploy stent around the calcified bend of the circumflex. 2. Cardiac catheterization 02/25/[address] [facility]: Mid LAD 50%. Proximal circumflex 50%. OM1 60%. Proximal RCA 30%. No . Moderately elevated LVEDP. Normal wall motion.. 3. Dobutamine stress echo 12/20/2010: Negative dobutamine echo and ECG at 93% MPHR. Rare PVC. 4. Echo 11/06/2017: Normal LV size, wall motion, systolic function. EF 60-65%. Mild LVH. Type 1 diastolic dysfunction. Moderate MAC. RVSP 23. Enhanced with IV definity. 5. Nuclear stress 01/19/2021: Abnormal suggesting inferior and inferolateral ischemia. Possible small infarct in the apical inferior and apical inferolateral territory. EF 65%. 6. Cardiac catheterization 02/21/2021 [facility]: Proximal LAD 30-40%. Mid LAD 50- 70% (IFR 0.82 with FFR of 0.71) at bifurcation of large diagonal. Mid circumflex 50-70% (FFR 0.78). Large Proximal OM3 30%. Proximal RCA 70%. Diffuse mid RCA 40-50%. LVEDP 10. No aortic stenosis. Profound bradycardia occurred with adenosine administration during circumflex evaluation. 7. CABG x3 03/14/2021 [facility]: MCCALL to LAD; SVG to RCA; SVG to OM1. Prolonged hospital stay complicated by postoperative AFib, ileus, delirium, and C diff. Allergies Allergy/AdvReac Type Severity Reaction Status Date / Time Sulfa (Sulfonamide Allergy Unknown Unknown Verified 05/02/21 11:51 Antibiotics) reaction Iodinated Contrast Media Allergy Unknown Verified 05/02/21 11:51 Home Medications Medication Instructions Recorded Confirmed Type aspirin 81 mg tablet,delayed 81 mg PO DAILY #30 tab 06/26/19 05/02/21 History release metformin 850 mg tablet 850 mg PO BID tab 06/26/19 05/02/21 History multivitamin (Multiple Vitamins) 1 tab PO DAILY 06/26/19 05/02/21 History tamsulosin 0.4 mg capsule 0.4 mg PO BID cap 08/25/19 05/02/21 History cholecalciferol (vitamin D3) 25 25 mcg PO DAILY 01/05/21 05/02/21 History mcg (1,000 unit) tablet (Vitamin D3) cyanocobalamin (vitamin B-12) 5,000 mcg PO DAILY 01/05/21 05/02/21 History 5,000 mcg capsule Saccharomyces boulardii 250 mg 250 mg PO DAILY cap 05/02/21 05/02/21 History capsule (Florastor) amiodarone 200 mg tablet 200 mg PO DAILY 05/02/21 05/02/21 History apixaban 5 mg tablet (Eliquis) 5 mg PO BID 05/02/21 05/02/21 History ferrous sulfate 325 mg (65 mg 325 mg PO TID tab 05/02/21 05/02/21 History iron) tablet furosemide 80 mg tablet (Lasix) 80 mg PO DAILY 05/02/21 05/02/21 History levothyroxine 75 mcg capsule 75 mcg PO DAILY 05/02/21 05/02/21 History melatonin 5 mg tablet 10 mg PO HS PRN tab 05/02/21 05/02/21 History metoprolol succinate 25 mg 12.5 mg PO BID tab 05/02/21 05/02/21 History tablet,extended release 24 hr omeprazole 20 mg capsule,delayed 20 mg PO DAILY 05/02/21 05/02/21 History release potassium chloride 20 mEq 20 meq PO DAILY 05/02/21 05/02/21 History tablet,extended release quetiapine 25 mg tablet (Seroquel) 25 mg PO DAILY 05/02/21 05/02/21 History thiamine HCl (vitamin B1) 100 mg 100 mg PO DAILY 05/02/21 05/02/21 History tablet Past Med/Surg History Medical History A-fib Anemia Chronic, hgb baseline 12's per chart review CAD in [place] artery Dyslipidemia Gastroesophageal reflux disease Hearing deficit Hypertension Obesity Type 2 diabetes mellitus NIDDM Urinary frequency Surgical History History of carpal tunnel release R/L History of colonoscopy History of repair of rotator cuff Left History of tonsillectomy and adenoidectomy History of tooth extraction S/P angioplasty 1995 S/P CABG (coronary artery bypass graft) Family History Other No family history of adverse response to anesthesia Social History Smoking Status: Former smoker Second Hand Exposure: No; Hx Alcohol Use: Yes Alcohol type: beer Hx Substance Use: No Preferred Language: Upper Sorbian Communication Ability: Effective Inside Contractor Sales Required: No Beliefs That Will Affect Care: None Current Living Situation: Spouse Current Living Situation Comment: Typically lives at home with spouse, was in nursing facility for rehab Other Information That Helps Us Care for You: No Feels Safe at Home: Yes Safety Concerns: Feels Safe At This Time Assistive Devices: Glasses and Hearing Aid - Bilateral Assistive Devices Comment: reading glasses, hearing aids at [facility] Review of Systems Review of Systems: All systems reviewed & are unremarkable except as noted in HPI & below Physical Exam Constitutional: WD/WN, vitals as above Eyes: PERRL, conjunctivae normal, anicteric sclerae ENMT: external ear and nose normal, oropharynx normal Neck: trachea midline, no thyromegaly Respiratory: normal respiratory effort, lungs clear to auscultation Cardiovascular: Rate/Rhythm: + irregularly irregular Vessels: + JVD Gastrointestinal (Abdomen): normal bowel sounds, soft, nontender, no hepatosplenomegaly Musculoskeletal: no cyanosis or clubbing, extremities motor strength 5/5 Skin: no rashes, warm and dry (except for redness around bilateral lower extremity) Neurologic: PERRL, EOMI, accommodation nl, no face palsy, no dysarthria Psychiatric: Orientation: alert Apperance: appropriately dressed Lymphatic: no cervical or axillary lymphadenopathy venous changes noted in bilateral lower extremity. Results & Data Results & Data ([facility]) Vital Signs (Past 12 Hours) Vital Signs Temp Pulse Resp BP Pulse Ox 05/02/21 17:13 73 28 H 128/58 L 05/02/21 15:30 69 26 H 147/85 H 05/02/21 14:56 81 20 97 05/02/21 14:21 36.4 C L 84 18 107/55 L 91 PG Care Time/CCT Total # of Minutes Spent Total Time Spent with Patient: Total time spent is greater than 50% in coordination of care (as documented) at patient's floor/unit and/or counseling patient: Coding Level of Care Code 84021 Initial Inpt Care Lvl 3 Diagnoses Acute heart failure with preserved ejection fraction I50.31 Persistent atrial fibrillation I48.19 S/P CABG (coronary artery bypass graft) Z95.1 Fluid overload E87.70 Hypervolemia type: unspecified C. difficile diarrhea A04.72 Dyslipidemia E78.5 Type 2 diabetes mellitus E11.9 BPH (benign prostatic hyperplasia) N40.0 Hypertension I10 Leg swelling M79.89 Hypomagnesemia E83.42 (1) Fluid overload Hypervolemia type: unspecified Qualified Code(s): E87.70 - Fluid overload, unspecified
[2021-05-02] MEDS ORDERED: MAGNESIUM SULFATE 1GM / D5W BAG IV ONE (19:12)
[2021-05-02 19:19] LABS: HCO3 VBG 44 mmol/L; Oxygen Saturation VBG < 60.0 %; PCO2 VBG 77 mmHg (38-50); PO2 VBG 24 mmHg; pH VBG 7.38 (7.36-7.41)
[2021-05-02] MEDS: MAGNESIUM SULFATE / D5W 1 GM/100 ML BAG IV SCH ×2 (19:27→22:40)
[2021-05-02 19:45] LABS: Cdiff Antigen Positive
[2021-05-02 19:47] LABS: Cdiff Toxin A+B Positive Cdiff Toxin (Negative)
[2021-05-02] MEDS ORDERED: VANCOMYCIN HCL 250 MG/5 ML SOLN PO STA (19:57)
[2021-05-02] MEDS ORDERED: RASPBERRY SYRUP 5 ML UDP PO STA (19:57)
[2021-05-02] MEDS ORDERED: MELATONIN 3 MG TAB PO PRN (20:44)
[2021-05-02] MEDS: TAMSULOSIN HCL 0.4 MG CAP PO SCH (21:42)
[2021-05-02] MEDS: FERROUS SULFATE 325 MG TAB PO SCH (21:42)
[2021-05-02] MEDS: APIXABAN 5 MG TABLET PO SCH (21:43)
[2021-05-02] MEDS: METOPROLOL SUCC 25MG EXT REL TAB PO SCH (21:43)
[2021-05-03] MEDS ORDERED: PHARMACY GLYCEMIC MGMT CONSULT PRN (00:47)
[2021-05-03] MEDS ORDERED: GLUCAGON FOR INJ 1 MG VIAL SQ PRN (01:15)
[2021-05-03] MEDS ORDERED: GLUCOSE 10 TABS/TUBE PO PRN (01:15)
[2021-05-03] MEDS ORDERED: CARBOHYDRATES FOR HYPOGLYCEMIA PO PRN (01:15)
[2021-05-03] MEDS ORDERED: DEXTROSE 50% 50 ML SYRINGE IV PRN (01:15)
[2021-05-03] MEDS ORDERED: GLUCOSE 40% GEL 15 GM TUBE PO PRN (01:15)
[2021-05-03] MEDS: INSULIN ASPART 100 UNITS/ML 3 ML PEN SC SCH ×5 (01:39→21:14)
[2021-05-03] MEDS: RASPBERRY SYRUP 5 ML UDP PO SCH ×4 (01:51→17:03)
[2021-05-03] MEDS: VANCOMYCIN HCL 250 MG/5 ML SOLN PO SCH ×4 (01:51→17:03)
[2021-05-03] MEDS: LEVOTHYROXINE SODIUM 75 MCG TABLET PO SCH (06:26)
[2021-05-03 08:42] LABS: Eosinophils # (auto) 0.02 K/uL (0-0.5); Eosinophils % (auto) 0.2 %; Hematocrit (blood only) 33.4 % (42-52); Hemoglobin 9.9 g/dL (14.0-18.0); Immature Granulocytes # (auto) 0.05 K/uL (0.00-0.02); Immature Granulocytes % (auto) 0.4 %; Lymphocytes # (auto) 0.65 K/uL (1.2-3.4); Lymphocytes % (auto) 5.1 %; Mean Corpuscular Hgb Conc 29.6 g/dL (32-36); Mean Corpuscular Volume 108.1 fL (80-100); Mean Platelet Volume 9.1 fL (7.4-10.4); Monocytes # (auto) 0.57 K/uL (0.11-0.59); Monocytes % (auto) 4.4 %; Neutrophils # (auto) 11.57 K/uL (1.4-6.5); Neutrophils % (auto) 89.9 %; Platelet Count 237 K/uL (130-400); RDW Coefficient of Variation 16.4 % (11.5-14.5); RDW Standard Deviation 65.5 fL (36.4-46.3); Red Blood Count 3.09 M/uL (4.7-6.1); White Blood Count 12.86 K/uL (4.8-10.8)
[2021-05-03] MEDS: THIAMINE HCL 100 MG TAB PO SCH (08:59)
[2021-05-03] MEDS: QUEtiapine FUMARATE 25 MG TABLET PO SCH (08:59)
[2021-05-03] MEDS: CYANOCOBALAMIN (VITAMIN B-12) 2,500 MCG TAB.SUBL SL SCH (08:59)
[2021-05-03] MEDS: PANTOprazole 40 MG TAB PO SCH (08:59)
[2021-05-03] MEDS: MULTIVITAMIN TAB PO SCH (08:59)
[2021-05-03] MEDS: CHOLECALCIFEROL 1,000 UNITS 25 MCG TAB PO SCH (08:59)
[2021-05-03] MEDS: AMIODARONE 200 MG TAB PO SCH (08:59)
[2021-05-03] MEDS: SACCHAROMYCES BOULARDII 250 MG CAP PO SCH (08:59)
[2021-05-03] MEDS: ASPIRIN 81 MG ECTAB PO SCH (08:59)
[2021-05-03] MEDS: METOPROLOL SUCC 25MG EXT REL TAB PO SCH ×2 (09:00→21:53)
[2021-05-03] MEDS: FERROUS SULFATE 325 MG TAB PO SCH ×3 (09:00→21:54)
[2021-05-03] MEDS: POTASSIUM CHLORIDE CRTAB 20 MEQ TABCR PO SCH (09:00)
[2021-05-03] MEDS: APIXABAN 5 MG TABLET PO SCH ×2 (09:00→21:54)
[2021-05-03] MEDS ORDERED: FUROSEMIDE 40 MG in SYRINGE 0 ML IV SCH (09:00)
[2021-05-03] MEDS: ATORVASTATIN 40 MG TAB PO SCH (09:00)
[2021-05-03 09:20] LABS: BUN Creatinine Ratio 23.3 (10-20); Blood Urea Nitrogen 21 mg/dl (7-18); Calcium 10.6 mg/dl (8.5-10.1); Carbon Dioxide 42 mmol/L (21-32); Chloride 97 mmol/L (98-107); Creatinine Clr Calc Pharmacy 63.2 ml/min; Est GFR (African American) 91.9 ml/min; Est GFR (Non-African American) 79.3 ml/min; Ferritin 102.4 ng/ml (8-388); Glucose 137 mg/dl (70-99); Iron 22 mcg/dl (35-175); Magnesium 1.9 mg/dl (1.8-2.4); NT Pro B Type Natriuretic Pept 2413 pg/ml (0-1800); Potassium 3.5 mmol/L (3.5-5.1); Sodium 141 mmol/L (136-145); Total Iron Binding Capacity 154 mcg/dl (250-450); Transferrin 136 mg/dl (200-360); Troponin I < 0.015 ng/ml (0-0.045)
--- NOTE | 2021-05-03 09:31 | Cardiology Progress Note ---
Date of Service May 03, 2021 Assessment & Plan (1) Acute heart failure with preserved ejection fraction: (2) CAD in [place] artery: (3) S/P CABG (coronary artery bypass graft): (4) Persistent atrial fibrillation: (5) Hypertension: (6) Dyslipidemia: (7) Hypomagnesemia: Plan: ASSESSMENT/PLAN: Acute HFpEF (Heart failure with preserved EF): -- Patient remains hypervolemic although his weight has come down 0.5 kg. -- Increase IV Lasix to 80 mg b.i.d. with a goal of a net negative fluid balance of at least 1-2 L in 24 hours. -- Monitor renal function and electrolytes closely. -- Low-sodium diet, less than 2000 mg daily. -- Strict I&Os and daily weights. -- Heart failure program referral. 2. CAD s/p CABG x 3 Vessels 03/14/21: -- No angina pectoris. -- Continue beta-hari. -- Continue Atorvastatin 40 mg daily. -- Recommend cardiac rehab following discharge. 3. Atrial Fibrillation: -- Postoperative atrial fibrillation following CABG and remains in AFib, rate controlled. -- Continue Amiodarone 200 mg daily. -- If he does not convert to sinus rhythm, would consider cardioversion electively verses adopting rate control strategy. -- Continue anticoagulation therapy. -- Continue beta-hari. 4. Hypertension: -- Blood pressure acceptable. -- Continue outpatient regimen. 5. Dyslipidemia: -- Continue Atorvastatin 40 mg daily. 6. Hypomagnesemia: -- Low magnesium corrected. -- Monitor daily labs. 7. Possible cellulitis: -- Defer to primary hospitalist service. -- Consider antibiotic therapy if felt to be necessary. 8. Diarrhea/C diff: -- Patient tested C diff positive and has ongoing diarrhea. -- Continue oral Vancomycin. Admission and Anticipated Discharge Date Admission Date: May 02, 2021 Subjective Mr. Shaver is an 80-year-old male with a history of CAD s/p CABG x 3 Vessels 03/14/21, Persistent Post-op Atrial Fibrillation, Hypertension, Dyslipidemia, and Type 2 Diabetes Mellitus who was seen by Dr. Adler in our [facility] office yesterday. Patient was very edematous, SOB/orthopnea, and required supplemental O2. Patient was diagnosed with an Acute Exacerbation of Diastolic CHF, so patient was referred to [facility] for admission. Patient was admitted and started on IV Lasix 40 mg b.i.d.. His weight has come down 0.5 kg, but he has a positive fluid balance of 455 mL. Troponin I is negative and his Pro-BNP is elevated at 2413 pg/mL. He has also tested positive for C.diff. Hypomagnesemia has been corrected. Mr. Shaver states that his edema improved overnight, but now that he has been sitting up in a chair the swelling is returning. He denies any SOB at the present time. He denies any chest pain. He has had the following studies/procedures: 1. Cardiac Catheterization 04/16/1996: [facility]'s in [place]. Circumflex 85% status post PTCA with residual 20-25%. RCA tandem lesions 70-99% status post PTCA 30% with spiral dissection. Unable to deploy stent around the calcified bend of the circumflex. 2. Cardiac Catheterization 02/25/2007 at [facility] [place]: Mid LAD 50%. Proximal circumflex 50%. OM1 60%. Proximal RCA 30%. No . Moderately elevated LVEDP. Normal wall motion.. 3. Dobutamine Stress Echo 12/20/2010: Negative dobutamine echo and ECG at 93% MPHR. Rare PVC. 4. Echo 11/06/2017: Normal LV size, wall motion, systolic function. EF 60-65%. Mild LVH. Type 1 diastolic dysfunction. Moderate MAC. RVSP 23. Enhanced with IV definity. 5. Nuclear Stress 01/19/2021: Abnormal suggesting inferior and inferolateral ischemia. Possible small infarct in the apical inferior and apical inferolateral territory. EF 65%. 6. Cardiac Catheterization 02/21/2021 [facility]: Proximal LAD 30-40%. Mid LAD 50-70% (IFR 0.82 with FFR of 0.71) at bifurcation of large diagonal. Mid circumflex 50-70% (FFR 0.78). Large Proximal OM3 30%. Proximal RCA 70%. Diffuse mid RCA 40-50%. LVEDP 10. No aortic stenosis. Profound bradycardia occurred with marimar nosine administration during circumflex evaluation. 7. CABG x 3 Vessels 03/14/2021 [facility] [place]: MCCALL to LAD; SVG to RCA; SVG to OM1. Prolonged hospital stay complicated by postoperative AFib, ileus, delirium, and C diff. Physical Exam Physical Exam: GENERAL: Patient in no acute distress. HEENT: Head is atraumatic, normocephalic. EOM's intact. Facies symmetric. No perioral cyanosis. NECK: No JVD. JVP is elevated. Carotid upstrokes are + 2 bilaterally. CHEST/LUNGS: Diminished breath sounds in bilateral bases but otherwise clear.. No wheezes, rales, or crackles. CVS: S1 and S2 are irregularly irregular at 76 bpm without murmurs, gallops, or rubs. PMI is nonpalpable. No lifts, heaves, or thrills. No abdominal aortic or renal bruits. ABDOMINAL EXAM: Bowel sounds are present. No masses, organomegaly, or tenderness. EXTREMITIES: No clubbing or cyanosis. +1 Pitting edema to the mid thigh b ilaterally, +2 -+3 pitting edema below the knees. Intact posterior tibial and radial pulses bilaterally. NEUROLOGIC EXAM: Patient is awake, alert, and oriented. Pleasant and cooperative. Answers questions appropriately. Speech is clear. TELEMETRY: -- A-Fib with an IVCD at rates in the 60's to 80's. Results & Data ([facility]) Vital Signs (Past 12 Hours) Vital Signs Temp Pulse Pulse Resp BP BP Pulse Ox 05/03/21 07:14 36.9 C 79 20 122/72 97 05/03/21 04:10 37.0 C 73 18 108/59 L 98 05/02/21 23:32 36.8 C 18 120/72 Laboratory Results Laboratory Results - last 24 hr 05/02/21 05/02/21 05/02/21 14:00 14:00 14:00 WBC 12.37 H RBC 3.07 L Hgb 10.0 L Hct 33.2 L MCV 108.1 H MCH 32.6 MCHC 30.1 L RDW Std Deviation 63.4 H RDW Coeff of Savi 16.1 H Plt Count 243 MPV 9.3 Immature Gran % (Auto) 0.5 Neut % (Auto) 88.0 Lymph % (Auto) 7.4 [place] % (Auto) 3.7 Eos % (Auto) 0.3 Baso % (Auto) 0.1 Neut # (Auto) 10.88 H Lymph # (Auto) 0.92 L [place] # (Auto) 0.46 Eos # (Auto) 0.04 Baso # (Auto) 0.01 Immature Gran # (Auto) 0.06 H PT 11.9 INR 1.2 H APTT 25.4 PTT Ratio 1.0 VBG pH VBG pCO2 VBG pO2 VBG HCO3 VBG O2 Saturation VBG Base Excess Barometric Pressure Sodium 139 Potassium 3.5 Chloride 97 L Carbon Dioxide 38 H Anion Gap 4.0 BUN 21 H Creatinine 0.92 Est Cr Clr Drug Dosing 62.3 Est GFR ( Amer) 89.5 Est GFR (Non-Af Amer) 77.2 BUN/Creatinine Ratio 23.1 H Glucose 104 H POC Glucose Estimat Average Glucose Hemoglobin A1c Calcium 10.4 H Magnesium 1.5 L Iron TIBC Transferrin Ferritin Total Bilirubin 0.3 AST 9 L ALT 11 L Alkaline Phosphatase 74 Troponin I < 0.015 NT-Pro-B Natriuret Pep 2509 H Total Protein 5.6 L Albumin 2.2 L Globulin 3.4 Albumin/Globulin Ratio 0.6 L Lipase 39 L Procalcitonin TSH 4.360 Urine Color Urine Appearance Urine pH Ur Specific [place] Urine Protein Urine Glucose (UA) Urine Ketones Urine Blood Urine Nitrite Urine Bilirubin Urine Urobilinogen Ur Leukocyte Esterase Urine WBC (Auto) Urine RBC (Auto) U Hyaline Cast (Auto) U Epithel Cells (Auto) Urine Bacteria (Auto) Nasal Screen MRSA (PCR) Stl C. diff Tox B Gene Stl C.difficile Tox A&B COVID-19 Eval Order SARS-CoV-2 (PCR) 05/02/21 05/02/21 05/02/21 15:27 15:27 15:27 WBC RBC Hgb Hct MCV MCH MCHC RDW Std Deviation RDW Coeff of Savi Plt Count MPV Immature Gran % (Auto) Neut % (Auto) Lymph % (Auto) [place] % (Auto) Eos % (Auto) Baso % (Auto) Neut # (Auto) Lymph # (Auto) [place] # (Auto) Eos # (Auto) Baso # (Auto) Immature Gran # (Auto) PT INR APTT PTT Ratio VBG pH VBG pCO2 VBG pO2 VBG HCO3 VBG O2 Saturation VBG Base Excess Barometric Pressure Sodium Potassium Chloride Carbon Dioxide Anion Gap BUN Creatinine Est Cr Clr Drug Dosing Est GFR ( Amer) Est GFR (Non-Af Amer) BUN/Creatinine Ratio Glucose POC Glucose Estimat Average Glucose Hemoglobin A1c Calcium Magnesium Iron TIBC Transferrin Ferritin Total Bilirubin AST ALT Alkaline Phosphatase Troponin I NT-Pro-B Natriuret Pep Total Protein Albumin Globulin Albumin/Globulin Ratio Lipase Procalcitonin TSH Urine Color Yellow Urine Appearance Clear Urine pH 5.0 Ur Specific [place] 1.009 Urine Protein Negative Urine Glucose (UA) Negative Urine Ketones Negative Urine Blood Negative Urine Nitrite Negative Urine Bilirubin Negative Urine Urobilinogen Negative Ur Leukocyte Esterase 1+ H Urine WBC (Auto) 1-5 Urine RBC (Auto) 0-4 U Hyaline Cast (Auto) 1-5 U Epithel Cells (Auto) 0-5 Urine Bacteria (Auto) Negative Nasal Screen MRSA (PCR) Stl C. diff Tox B Gene Stl C.difficile Tox A&B COVID-19 Eval Order Covid19 at [facility] SARS-CoV-2 (PCR) NEGATIVE 05/02/21 05/02/21 05/02/21 17:40 19:04 21:25 WBC RBC Hgb Hct MCV MCH MCHC RDW Std Deviation RDW Coeff of Savi Plt Count MPV Immature Gran % (Auto) Neut % (Auto) Lymph % (Auto) [place] % (Auto) Eos % (Auto) Baso % (Auto) Neut # (Auto) Lymph # (Auto) [place] # (Auto) Eos # (Auto) Baso # (Auto) Immature Gran # (Auto) PT INR APTT PTT Ratio VBG pH 7.38 VBG pCO2 77 H VBG pO2 24 VBG HCO3 44 VBG O2 Saturation < 60.0 VBG Base Excess 16.0 Barometric Pressure 734.8 Sodium Potassium Chloride Carbon Dioxide Anion Gap BUN Creatinine Est Cr Clr Drug Dosing Est GFR ( Amer) Est GFR (Non-Af Amer) BUN/Creatinine Ratio Glucose POC Glucose Estimat Average Glucose Hemoglobin A1c Calcium Magnesium Iron TIBC Transferrin Ferritin Total Bilirubin AST ALT Alkaline Phosphatase Troponin I NT-Pro-B Natriuret Pep Total Protein Albumin Globulin Albumin/Globulin Ratio Lipase Procalcitonin TSH Urine Color Urine Appearance Urine pH Ur Specific [place] Urine Protein Urine Glucose (UA) Urine Ketones Urine Blood Urine Nitrite Urine Bilirubin Urine Urobilinogen Ur Leukocyte Esterase Urine WBC (Auto) Urine RBC (Auto) U Hyaline Cast (Auto) U Epithel Cells (Auto) Urine Bacteria (Auto) Nasal Screen MRSA (PCR) Negative Stl C. diff Tox B Gene Positive Cdiff Gene H Stl C.difficile Tox A&B Positive Cdiff Toxin A* COVID-19 Eval Order SARS-CoV-2 (PCR) 05/03/21 05/03/21 05/03/21 01:29 05:06 07:11 WBC RBC Hgb Hct MCV MCH MCHC RDW Std Deviation RDW Coeff of Savi Plt Count MPV Immature Gran % (Auto) Neut % (Auto) Lymph % (Auto) [place] % (Auto) Eos % (Auto) Baso % (Auto) Neut # (Auto) Lymph # (Auto) [place] # (Auto) Eos # (Auto) Baso # (Auto) Immature Gran # (Auto) PT INR APTT PTT Ratio VBG pH VBG pCO2 VBG pO2 VBG HCO3 VBG O2 Saturation VBG Base Excess Barometric Pressure Sodium Potassium Chloride Carbon Dioxide Anion Gap BUN Creatinine Est Cr Clr Drug Dosing Est GFR ( Amer) Est GFR (Non-Af Amer) BUN/Creatinine Ratio Glucose POC Glucose 173 H 124 H 134 H Estimat Average Glucose Hemoglobin A1c Calcium Magnesium Iron TIBC Transferrin Ferritin Total Bilirubin AST ALT Alkaline Phosphatase Troponin I NT-Pro-B Natriuret Pep Total Protein Albumin Globulin Albumin/Globulin Ratio Lipase Procalcitonin TSH Urine Color Urine Appearance Urine pH Ur Specific [place] Urine Protein Urine Glucose (UA) Urine Ketones Urine Blood Urine Nitrite Urine Bilirubin Urine Urobilinogen Ur Leukocyte Esterase Urine WBC (Auto) Urine RBC (Auto) U Hyaline Cast (Auto) U Epithel Cells (Auto) Urine Bacteria (Auto) Nasal Screen MRSA (PCR) Stl C. diff Tox B Gene Stl C.difficile Tox A&B COVID-19 Eval Order SARS-CoV-2 (PCR) 05/03/21 05/03/21 05/03/21 07:47 07:47 07:47 WBC 12.86 H RBC 3.09 L Hgb 9.9 L Hct 33.4 L MCV 108.1 H MCH 32.0 MCHC 29.6 L RDW Std Deviation 65.5 H RDW Coeff of Savi 16.4 H Plt Count 237 MPV 9.1 Immature Gran % (Auto) 0.4 Neut % (Auto) 89.9 Lymph % (Auto) 5.1 [place] % (Auto) 4.4 Eos % (Auto) 0.2 Baso % (Auto) 0.0 Neut # (Auto) 11.57 H Lymph # (Auto) 0.65 L [place] # (Auto) 0.57 Eos # (Auto) 0.02 Baso # (Auto) 0.00 Immature Gran # (Auto) 0.05 H PT INR APTT PTT Ratio VBG pH VBG pCO2 VBG pO2 VBG HCO3 VBG O2 Saturation VBG Base Excess Barometric Pressure Sodium 141 Potassium 3.5 Chloride 97 L Carbon Dioxide 42 H* Anion Gap 2.0 L BUN 21 H Creatinine 0.90 Est Cr Clr Drug Dosing 63.2 Est GFR ( Amer) 91.9 Est GFR (Non-Af Amer) 79.3 BUN/Creatinine Ratio 23.3 H Glucose 137 H POC Glucose Estimat Average Glucose Hemoglobin A1c Calcium 10.6 H Magnesium 1.9 Iron 22 L TIBC 154 L Transferrin 136 L Ferritin 102.4 Total Bilirubin AST ALT Alkaline Phosphatase Troponin I < 0.015 NT-Pro-B Natriuret Pep 2413 H Total Protein Albumin Globulin Albumin/Globulin Ratio Lipase Procalcitonin 0.11 TSH Urine Color Urine Appearance Urine pH Ur Specific [place] Urine Protein Urine Glucose (UA) Urine Ketones Urine Blood Urine Nitrite Urine Bilirubin Urine Urobilinogen Ur Leukocyte Esterase Urine WBC (Auto) Urine RBC (Auto) U Hyaline Cast (Auto) U Epithel Cells (Auto) Urine Bacteria (Auto) Nasal Screen MRSA (PCR) Stl C. diff Tox B Gene Stl C.difficile Tox A&B COVID-19 Eval Order SARS-CoV-2 (PCR) 05/03/21 07:47 WBC RBC Hgb Hct MCV MCH MCHC RDW Std Deviation RDW Coeff of Savi Plt Count MPV Immature Gran % (Auto) Neut % (Auto) Lymph % (Auto) [place] % (Auto) Eos % (Auto) Baso % (Auto) Neut # (Auto) Lymph # (Auto) [place] # (Auto) Eos # (Auto) Baso # (Auto) Immature Gran # (Auto) PT INR APTT PTT Ratio VBG pH VBG pCO2 VBG pO2 VBG HCO3 VBG O2 Saturation VBG Base Excess Barometric Pressure Sodium Potassium Chloride Carbon Dioxide Anion Gap BUN Creatinine Est Cr Clr Drug Dosing Est GFR ( Amer) Est GFR (Non-Af Amer) BUN/Creatinine Ratio Glucose POC Glucose Estimat Average Glucose Pending Hemoglobin A1c Pending Calcium Magnesium Iron TIBC Transferrin Ferritin Total Bilirubin AST ALT Alkaline Phosphatase Troponin I NT-Pro-B Natriuret Pep Total Protein Albumin Globulin Albumin/Globulin Ratio Lipase Procalcitonin TSH Urine Color Urine Appearance Urine pH Ur Specific [place] Urine Protein Urine Glucose (UA) Urine Ketones Urine Blood Urine Nitrite Urine Bilirubin Urine Urobilinogen Ur Leukocyte Esterase Urine WBC (Auto) Urine RBC (Auto) U Hyaline Cast (Auto) U Epithel Cells (Auto) Urine Bacteria (Auto) Nasal Screen MRSA (PCR) Stl C. diff Tox B Gene Stl C.difficile Tox A&B COVID-19 Eval Order SARS-CoV-2 (PCR) Diagnostic Findings CXR -- single view 05/02/21: An AP, portable, upright chest radiograph is compared to study dated 01/09/2021. The examination is degraded by portable technique and apical lordotic positioning. The patient is status post midline sternotomy. The heart is enlarged. The pulmonary vasculature is non-congested. There is bibasilar scarring/atelectasis. No airspace consolidation or large pleural effusion is identified. No pneumothorax is seen. The skeletal structures are osteopenic. The bony thorax is grossly intact. IMPRESSION: Cardiomegaly with no acute cardiopulmonary abnormality. Medications Administered Medications aspirin 81 mg tablet,delayed release 81 mg PO DAILY #30 tab 06/26/19 [History Confirmed 05/02/21] metformin 850 mg tablet 850 mg PO BID tab 06/26/19 [History Confirmed 05/02/21] multivitamin (Multiple Vitamins) 1 tab PO DAILY 06/26/19 [History Confirmed 05/02/21] tamsulosin 0.4 mg capsule 0.4 mg PO BID cap 08/25/19 [History Confirmed 05/02/21] cholecalciferol (vitamin D3) 25 mcg (1,000 unit) tablet (Vitamin D3) 25 mcg PO DAILY 01/05/21 [History Confirmed 05/02/21] cyanocobalamin (vitamin B-12) 5,000 mcg capsule 5,000 mcg PO DAILY 01/05/21 [History Confirmed 05/02/21] Saccharomyces boulardii 250 mg capsule (Florastor) 250 mg PO DAILY cap 05/02/21 [History Confirmed 05/02/21] amiodarone 200 mg tablet 200 mg PO DAILY 05/02/21 [History Confirmed 05/02/21] apixaban 5 mg tablet (Eliquis) 5 mg PO BID 05/02/21 [History Confirmed 05/02/21] ferrous sulfate 325 mg (65 mg iron) tablet 325 mg PO TID tab 05/02/21 [History Confirmed 05/02/21] furosemide 80 mg tablet (Lasix) 80 mg PO DAILY 05/02/21 [History Confirmed 05/02/21] levothyroxine 75 mcg capsule 75 mcg PO DAILY 05/02/21 [History Confirmed 05/02/21] melatonin 5 mg tablet 10 mg PO HS PRN tab 05/02/21 [History Confirmed 05/02/21] metoprolol succinate 25 mg tablet,extended release 24 hr 12.5 mg PO BID tab 05/02/21 [History Confirmed 05/02/21] omeprazole 20 mg capsule,delayed release 20 mg PO DAILY 05/02/21 [History Confirmed 05/02/21] potassium chloride 20 mEq tablet,extended release 20 meq PO DAILY 05/02/21 [History Confirmed 05/02/21] quetiapine 25 mg tablet (Seroquel) 25 mg PO DAILY 05/02/21 [History Confirmed 05/02/21] thiamine HCl (vitamin B1) 100 mg tablet 100 mg PO DAILY 05/02/21 [History Confirmed 05/02/21] Home Medications Amiodarone HCl (Amiodarone 200 Mg Tab) 200 mg PO DAILY [facility] Stop: 06/02/21 08:59 Last Admin: 05/03/21 08:59 Dose: 200 mg Documented by: Apixaban (Apixaban 5 Mg Tablet) 5 mg PO BID [facility] Stop: 06/01/21 20:59 Last Admin: 05/03/21 09:00 Dose: 5 mg Documented by: Aspirin (Aspirin 81 Mg Ectab) 81 mg PO DAILY [facility] Stop: 06/02/21 08:59 Last Admin: 05/03/21 08:59 Dose: 81 mg Documented by: Atorvastatin Calcium (Atorvastatin 40 Mg Tab) 40 mg PO QAM [facility] Stop: 06/02/21 08:59 Last Admin: 05/03/21 09:00 Dose: 40 mg Documented by: Cyanocobalamin (Cyanocobalamin (Vitamin B-12) 2,500 Mcg Tab.Subl) 5,000 mcg SL DAILY [facility] Stop: 06/02/21 08:59 Last Admin: 05/03/21 08:59 Dose: 5,000 mcg Documented by: Dextrose (Dextrose 50% 50 Ml Syringe) 25 - 50 ml IV UD PRN; Protocol PRN Reason: Hypoglycemia Protocol Stop: 06/02/21 01:14 Ferrous Sulfate (Ferrous Sulfate 325 Mg Tab) 325 mg PO TID [facility] Stop: 06/01/21 20:59 Last Admin: 05/03/21 09:00 Dose: 325 mg Documented by: Glucagon (Glucagon For Inj 1 Mg Vial) 1 mg SQ UD PRN; Protocol PRN Reason: Hypoglycemia Protocol Stop: 06/02/21 01:14 Glucose (Glucose 40% Gel 15 Gm Tube) 15 - 30 gm PO UD PRN; Protocol PRN Reason: Hypoglycemia Protocol Stop: 06/02/21 01:14 Glucose (Glucose 10 Tabs/Tube) 4 - 8 tabs PO UD PRN; Protocol PRN Reason: Hypoglycemia Protocol Stop: 06/02/21 01:14 Furosemide 40 mg/ Syringe 4 mls @ 4 mls/min IV BID17 [facility] Stop: 06/02/21 08:59 Last Admin: 05/03/21 08:58 Dose: 4 mls/min Documented by: Insulin Aspart (Insulin Aspart 100 Units/Ml 3 Ml Pen) 0 units SC ACHS [facility]; Protocol Stop: 06/02/21 01:59 Last Admin: 05/03/21 01:39 Dose: 1 units Documented by: Levothyroxine Sodium (Levothyroxine Sodium 75 Mcg Tablet) 75 mcg PO DAILYBB [facility] Stop: 06/02/21 06:29 Last Admin: 05/03/21 06:26 Dose: 75 mcg Documented by: Melatonin (Melatonin 3 Mg Tab) 9 mg PO HS PRN PRN Reason: Sleep Stop: 06/01/21 20:43 Metoprolol Succinate (Metoprolol Succ 25mg Ext Rel Tab) 12.5 mg PO BID [facility] Stop: 06/01/21 20:59 Last Admin: 05/03/21 09:00 Dose: 12.5 mg Documented by: Miscellaneous (Carbohydrates For Hypoglycemia ) 15 - 30 gm PO UD PRN PRN Reason: Hypoglycemia Treatment Stop: 06/02/21 01:14 Miscellaneous Information (Pharmacy Glycemic Mgmt Consult) 1 ea N/A UD PRN PRN Reason: Consult Stop: 06/02/21 00:46 Multivitamins (Multivitamin Tab) 1 tab PO DAILY [facility] Stop: 06/02/21 08:59 Last Admin: 05/03/21 08:59 Dose: 1 tab Documented by: Pantoprazole Sodium (Pantoprazole 40 Mg Tab) 40 mg PO DAILY [facility] Stop: 06/02/21 08:59 Last Admin: 05/03/21 08:59 Dose: 40 mg Documented by: Potassium Chloride (Potassium Chloride Crtab 20 Meq Tabcr) 20 meq PO DAILY [facility] Stop: 06/02/21 08:59 Last Admin: 05/03/21 09:00 Dose: 20 meq Documented by: Quetiapine Fumarate (Quetiapine Fumarate 25 Mg Tablet) 25 mg PO DAILY [facility] Stop: 06/02/21 08:59 Last Admin: 05/03/21 08:59 Dose: 25 mg Documented by: Raspberry (Raspberry Syrup 5 Ml Udp) 5 ml PO Q6 [facility] Stop: 05/17/21 00:00 Last Admin: 05/03/21 06:25 Dose: 5 ml Documented by: Saccharomyces Boulardii (Saccharomyces Boulardii 250 Mg Cap) 250 mg PO DAILY [facility] Stop: 06/02/21 08:59 Last Admin: 05/03/21 08:59 Dose: 250 mg Documented by: Tamsulosin HCl (Tamsulosin Hcl 0.4 Mg Cap) 0.8 mg PO HS [facility] Stop: 06/01/21 20:59 Last Admin: 05/02/21 21:42 Dose: 0.8 mg Documented by: Thiamine HCl (Thiamine Hcl 100 Mg Tab) 100 mg PO DAILY [facility] Stop: 06/02/21 08:59 Last Admin: 05/03/21 08:59 Dose: 100 mg Documented by: Vancomycin HCl (Vancomycin Hcl 250 Mg/5 Ml Soln) 250 mg PO Q6 [facility] Stop: 05/13/21 00:00 Last Admin: 05/03/21 06:26 Dose: 250 mg Documented by: Vitamin D (Cholecalciferol 1,000 Units 25 Mcg Tab) 1,000 units PO DAILY [facility] Stop: 06/02/21 08:59 Last Admin: 05/03/21 08:59 Dose: 1,000 units Documented by: PG Care Time/CCT Total # of Minutes Spent Total Time Spent with Patient: Total time spent is greater than 50% in coordination of care (as documented) at patient's floor/unit and/or counseling patient:25 Coding Level of Care Code 64235 Subseq Hosp Care Lvl 3 Diagnoses Acute heart failure with preserved ejection fraction I50.31 CAD in [place] artery I25.10 S/P CABG (coronary artery bypass graft) Z95.1 Persistent atrial fibrillation I48.19 Hypertension I10 Dyslipidemia E78.5 Hypomagnesemia E83.42 Time Spent (min) 40
[2021-05-03 10:19] LABS: Estimated Average Glucose 108 mg/dl; Hemoglobin A1C 5.4 % (4.5-5.6)
--- NOTE | 2021-05-03 14:32 | Pharmacy Report ---
Pharmacy Glycemic Sign Off Nt - Date of Service May 03, 2021 - Assessment & Plan ASSESSMENT: * Pharmacy was consulted by Dr Montenegro on 05/03 for glycemic control and to write orders per [facility] inpatient glycemic control protocol. * Major changes made by pharmacy to antidiabetic regimen include: * added novolog SSI * Patient has been receiving no insulin over last 24 hrs * BSGs ranging 104 - 173 mg/dl * Please see recommendations for outpatient antidiabetic regimen below. PLAN FOR INPATIENT GLYCEMIC CONTROL: No changes needed to current regimen. * Held basal insulin - not currently indicated * Continue NovoLog per scale ACHS/Q6hrs while NPO * Goal range = 110-140 mg/dl * CF = 35 mg/dl/unit * CR = 1 unit for every ---(none) g CHO consumed * Pharmacy is signing off of glycemic consult and will no longer be making adjustments to inpatient regimen. Please feel free to re-consult if needed. Thank you. DISCHARGE RECOMMENDATIONS: * A1c 5.4% on 05/03 - Goal <7% * Could consider resuming home metformin on discharge as long as no contraindications present
[2021-05-03] MEDS: FUROSEMIDE 80 MG in SYRINGE 0 ML IV SCH (16:47)
--- NOTE | 2021-05-03 17:57 | Hospitalist Progress Note ---
Date of Service May 03, 2021 Assessment & Plan (1) Acute heart failure with preserved ejection fraction: Plan: (1) Acute heart failure with preserved ejection fraction: -Patient admitted with above problem. -First placed on IV diuretic 40 mg BID --> patient remains hypervolemic, changed to 80mg BID; keep negative balance -Monitor renal function and electrolytes closely. -Low-sodium diet, less than 2000 mg daily; high sodium diet most likely cause for condition -Strict I&Os and daily weights. (2) Persistent atrial fibrillation: -cont apixaban and beta blockers -consider cardioversion if patient does not convert (3) S/P CABG (coronary artery bypass graft): - No angina pectoris. - Continue beta-hari. - Continue Atorvastatin 40 mg daily. - Cardio recommends cardiac rehab following discharge. (4) C. difficile diarrhea: - c. diff toxin and gene were positive. - cont IV vancomycin; consider switching to fosfomycin since now 1st line medication (5) Dyslipidemia: - cont atorvastatin 40mg PO daily (6) Type 2 diabetes mellitus: on metformin as outpatient. will check fasting blood sugar. will check a1c. (7) BPH (benign prostatic hyperplasia): - cont home meds (8) Hypertension: - BP at goal. - cont home meds (9) Hypomagnesemia: - resolved, recheck in the am (10) Possible cellulitis: - Consider antibiotic therapy if felt to be necessary. (11) DM2 - insulin sliding scale - hold metformin; A1C 5.4 Admission and Anticipated Discharge Date Admission Date: May 02, 2021 Supervising Physician Co-Signing Physician Notes I personally examined the patient and verified all shankar points of history and exam, discussed case, and agree with decision making with Dr Simpson. Feeling a bit better. Breathing reasonable. Still has diarrhea, but no abdominal pain. Vitals noted, in general he is awake and alert pleasant no distress. HEENT normocephalic atraumatic mucous membranes moist. Lungs are clear but diminished throughout. No rales rhonchi or wheezes good effort. Abdomen mildly distended but nontender. HFpEF -Continue Lasix -Follow clinically and labs -Evaluate foods C. difficile colitis -Appears recurrence -Vancomycin at this time -Work on long-term plan Otherwise as above. Subjective Patient still having diarrhea. Otherwise feels good. Says leg swelling has gone down. Denies SOB, chest pain, fever. Review of Systems Review of Systems: All systems reviewed & are unremarkable except as noted in HPI & below Physical Exam Physical Exam: Constitutional: WD/WN, vitals as above Neck: trachea midline, no thyromegaly Respiratory: normal respiratory effort, lungs clear to auscultation Cardiovascular: Rate/Rhythm: + irregularly irregular Vessels: + JVD Gastrointestinal (Abdomen): normal bowel sounds, soft, nontender, no hepatosplenomegaly Musculoskeletal: no cyanosis or clubbing, extremities motor strength 5/5 Skin: no rashes, warm and dry (except for redness around bilateral lower extremity) Neurologic: PERRL, EOMI, accommodation nl, no face palsy, no dysarthria Psychiatric: Orientation: alert Apperance: appropriately dressed Lymphatic: no cervical or axillary lymphadenopathy venous changes noted in bilateral lower extremity. Results & Data Results & Data ([facility]) Vital Signs (Past 12 Hours) Vital Signs Temp Pulse Resp BP Pulse Ox 05/03/21 16:58 36.8 C 73 20 116/64 97 05/03/21 14:19 36.6 C 85 17 135/73 97 05/03/21 07:14 36.9 C 79 20 122/72 97 Resident Activity Tracking Resident Involvement: Resident Care Provided Care Provided: Adult Hospital Medicine
--- NOTE | 2021-05-03 18:46 | Billing Data ---
Date of Service May 03, 2021 Coding Level of Care Code 21205 Subseq Hosp Care Lvl 3
[2021-05-03] MEDS: TAMSULOSIN HCL 0.4 MG CAP PO SCH (21:55)
[2021-05-04] MEDS: VANCOMYCIN HCL 250 MG/5 ML SOLN PO SCH ×5 (00:30→23:57)
[2021-05-04] MEDS: RASPBERRY SYRUP 5 ML UDP PO SCH ×5 (00:30→23:57)
[2021-05-04] MEDS: LEVOTHYROXINE SODIUM 75 MCG TABLET PO SCH (06:19)
[2021-05-04 08:46] LABS: BUN Creatinine Ratio 18.9 (10-20); Calcium 10.3 mg/dl (8.5-10.1); Creatinine Clr Calc Pharmacy 62.7 ml/min; Est GFR (African American) 90.6 ml/min; Est GFR (Non-African American) 78.2 ml/min; Potassium 3.1 mmol/L (3.5-5.1)
[2021-05-04] MEDS ORDERED: POTASSIUM CHLORIDE CRTAB 20 MEQ TABCR PO STA (08:52)
[2021-05-04] MEDS: FUROSEMIDE 80 MG in SYRINGE 0 ML IV SCH ×2 (08:57→17:07)
[2021-05-04] MEDS: APIXABAN 5 MG TABLET PO SCH ×2 (08:57→20:04)
[2021-05-04] MEDS: ATORVASTATIN 40 MG TAB PO SCH (08:57)
[2021-05-04] MEDS: PANTOprazole 40 MG TAB PO SCH (08:58)
[2021-05-04] MEDS: CHOLECALCIFEROL 1,000 UNITS 25 MCG TAB PO SCH (08:58)
[2021-05-04] MEDS: AMIODARONE 200 MG TAB PO SCH (08:58)
[2021-05-04] MEDS: MULTIVITAMIN TAB PO SCH (08:58)
[2021-05-04] MEDS: SACCHAROMYCES BOULARDII 250 MG CAP PO SCH (08:58)
[2021-05-04] MEDS: ASPIRIN 81 MG ECTAB PO SCH (08:59)
[2021-05-04] MEDS: THIAMINE HCL 100 MG TAB PO SCH (08:59)
[2021-05-04] MEDS: QUEtiapine FUMARATE 25 MG TABLET PO SCH (08:59)
[2021-05-04] MEDS: METOPROLOL SUCC 25MG EXT REL TAB PO SCH ×2 (09:00→20:04)
[2021-05-04] MEDS: CYANOCOBALAMIN (VITAMIN B-12) 2,500 MCG TAB.SUBL SL SCH (09:00)
[2021-05-04] MEDS: FERROUS SULFATE 325 MG TAB PO SCH ×3 (09:00→20:04)
[2021-05-04] MEDS: POTASSIUM CHLORIDE CRTAB 20 MEQ TABCR PO SCH (09:02)
[2021-05-04] MEDS: INSULIN ASPART 100 UNITS/ML 3 ML PEN SC SCH ×4 (09:08→20:11)
--- NOTE | 2021-05-04 15:56 | Anesthesiology Consultation ---
Date of Service May 04, 2021 The patient had a CABG six weeks ago on 05/14/21. Assessment & Plan (1) Encounter for pre-operative examination: Chart Review Chart Review: Acceptable Risk for Surgery (necessary procedure) and Patient NOT seen in Pre Admission Testing Consults Requested none History Surgery Operation Date: 05/05/21 07:15 Proposed Procedures p Cardioversion Phlebotomy Services Technician w/Anesthesia - Ranjit Adler MD Height/Weight Height: 5 ft 4 in Weight: 88.4 kg Allergies Allergy/AdvReac Type Severity Reaction Status Date / Time Sulfa (Sulfonamide Allergy Unknown Unknown Verified 05/02/21 11:51 Antibiotics) reaction Iodinated Contrast Media Allergy Unknown Verified 05/02/21 11:51 Medications Home Medications Medication Instructions Recorded Confirmed Last Taken aspirin 81 mg tablet,delayed 81 mg PO DAILY #30 tab 06/26/19 05/02/21 Unknown release metformin 850 mg tablet 850 mg PO BID tab 06/26/19 05/02/21 Unknown multivitamin (Multiple Vitamins) 1 tab PO DAILY 06/26/19 05/02/21 Unknown tamsulosin 0.4 mg capsule 0.4 mg PO BID cap 08/25/19 05/02/21 Unknown cholecalciferol (vitamin D3) 25 25 mcg PO DAILY 01/05/21 05/02/21 Unknown mcg (1,000 unit) tablet (Vitamin D3) cyanocobalamin (vitamin B-12) 5,000 mcg PO DAILY 01/05/21 05/02/21 Unknown 5,000 mcg capsule Saccharomyces boulardii 250 mg 250 mg PO DAILY cap 05/02/21 05/02/21 Unknown capsule (Florastor) amiodarone 200 mg tablet 200 mg PO DAILY 05/02/21 05/02/21 Unknown apixaban 5 mg tablet (Eliquis) 5 mg PO BID 05/02/21 05/02/21 Unknown ferrous sulfate 325 mg (65 mg 325 mg PO TID tab 05/02/21 05/02/21 Unknown iron) tablet furosemide 80 mg tablet (Lasix) 80 mg PO DAILY 05/02/21 05/02/21 Unknown levothyroxine 75 mcg capsule 75 mcg PO DAILY 05/02/21 05/02/21 Unknown melatonin 5 mg tablet 10 mg PO HS PRN tab 05/02/21 05/02/21 Unknown metoprolol succinate 25 mg 12.5 mg PO BID tab 05/02/21 05/02/21 Unknown tablet,extended release 24 hr omeprazole 20 mg capsule,delayed 20 mg PO DAILY 05/02/21 05/02/21 Unknown release potassium chloride 20 mEq 20 meq PO DAILY 05/02/21 05/02/21 Unknown tablet,extended release quetiapine 25 mg tablet (Seroquel) 25 mg PO DAILY 05/02/21 05/02/21 Unknown thiamine HCl (vitamin B1) 100 mg 100 mg PO DAILY 05/02/21 05/02/21 Unknown tablet Active Medications Generic Name Dose Route Start Last Admin Trade Name Freq PRN Reason Stop Dose Admin Amiodarone HCl 200 mg 05/03/21 09:00 05/04/21 08:58 Amiodarone 200 Mg Tab PO 06/02/21 08:59 200 mg DAILY ARCADIO Administration Apixaban 5 mg 05/02/21 21:00 05/04/21 08:57 Apixaban 5 Mg Tablet PO 06/01/21 20:59 5 mg BID ARCADIO Administration Aspirin 81 mg 05/03/21 09:00 05/04/21 08:59 Aspirin 81 Mg Ectab PO 06/02/21 08:59 81 mg DAILY ARCADIO Administration Atorvastatin Calcium 40 mg 05/03/21 09:00 05/04/21 08:57 Atorvastatin 40 Mg Tab PO 06/02/21 08:59 40 mg QAM ARCADIO Administration Cyanocobalamin 5,000 mcg 05/03/21 09:00 05/04/21 09:00 Cyanocobalamin (Vitamin B-12) 2,500 Mcg Tab.Subl SL 06/02/21 08:59 5,000 mcg DAILY ARCADIO Administration Ferrous Sulfate 325 mg 05/02/21 21:00 05/04/21 09:00 Ferrous Sulfate 325 Mg Tab PO 06/01/21 20:59 325 mg TID ARCADIO Administration Furosemide 80 mg/ Syringe 8 mls @ 4 mls/min 05/03/21 17:00 05/04/21 08:57 IV 06/02/21 16:59 4 mls/min BID17 ARCADIO Administration Insulin Aspart 0 units 05/03/21 02:00 05/04/21 12:02 Insulin Aspart 100 Units/Ml 3 Ml Pen SC 06/02/21 01:59 3 units ACHS ARCADIO Administration Protocol Levothyroxine Sodium 75 mcg 05/03/21 06:30 05/04/21 06:19 Levothyroxine Sodium 75 Mcg Tablet PO 06/02/21 06:29 75 mcg DAILYBB ARCADIO Administration Metoprolol Succinate 12.5 mg 05/02/21 21:00 05/04/21 09:00 Metoprolol Succ 25mg Ext Rel Tab PO 06/01/21 20:59 12.5 mg BID ARCADIO Administration Multivitamins 1 tab 05/03/21 09:00 05/04/21 08:58 Multivitamin Tab PO 06/02/21 08:59 1 tab DAILY ARCADIO Administration Pantoprazole Sodium 40 mg 05/03/21 09:00 05/04/21 08:58 Pantoprazole 40 Mg Tab PO 06/02/21 08:59 40 mg DAILY ARCADIO Administration Potassium Chloride 20 meq 05/03/21 09:00 05/04/21 09:02 Potassium Chloride Crtab 20 Meq Tabcr PO 06/02/21 08:59 20 meq DAILY ARCADIO Administration Quetiapine Fumarate 25 mg 05/03/21 09:00 05/04/21 08:59 Quetiapine Fumarate 25 Mg Tablet PO 06/02/21 08:59 25 mg DAILY ARCADIO Administration Raspberry 5 ml 05/03/21 00:00 05/04/21 12:02 Raspberry Syrup 5 Ml Udp PO 05/17/21 00:00 5 ml Q6 ARCADIO Administration Saccharomyces Boulardii 250 mg 05/03/21 09:00 05/04/21 08:58 Saccharomyces Boulardii 250 Mg Cap PO 06/02/21 08:59 250 mg DAILY ARCADIO Administration Tamsulosin HCl 0.8 mg 05/02/21 21:00 05/03/21 21:55 Tamsulosin Hcl 0.4 Mg Cap PO 06/01/21 20:59 0.8 mg HS ARCADIO Administration Thiamine HCl 100 mg 05/03/21 09:00 05/04/21 08:59 Thiamine Hcl 100 Mg Tab PO 06/02/21 08:59 100 mg DAILY ARCADIO Administration Vancomycin HCl 250 mg 05/03/21 00:00 05/04/21 12:02 Vancomycin Hcl 250 Mg/5 Ml Soln PO 05/13/21 00:00 250 mg Q6 ARCADIO Administration Vitamin D 1,000 units 05/03/21 09:00 05/04/21 08:58 Cholecalciferol 1,000 Units 25 Mcg Tab PO 06/02/21 08:59 1,000 units DAILY ARCADIO Administration Past Medical History Medical History A-fib Anemia Chronic, hgb baseline 12's per chart review CAD in [place] artery Dyslipidemia Gastroesophageal reflux disease Hearing deficit Hypertension Obesity Type 2 diabetes mellitus NIDDM Urinary frequency Past Family History Family History Other No family history of adverse response to anesthesia Past Surgical History Surgical History History of carpal tunnel release R/L History of colonoscopy History of repair of rotator cuff Left History of tonsillectomy and adenoidectomy History of tooth extraction S/P angioplasty 1995 S/P CABG (coronary artery bypass graft) March 14, 2021 Social History Smoking Status: Former smoker tobacco type: cigarettes Hx Alcohol Use: Yes Alcohol type: beer alcohol intake frequency: holidays/special occasions only Hx Substance Use: No substance use type: does not use Physical Exam Vital Signs Last Vital Signs Temp 36.5 C 05/04/21 15:26 Pulse 68 05/04/21 15:26 Resp 19 05/04/21 15:26 BP 117/67 05/04/21 15:26 Pulse Ox 98 05/04/21 15:26 Testing Laboratory Results 05/03/21 07:47 05/04/21 07:07 PT 11.9 Seconds (9.0-12.0) 05/02/21 14:00 INR 1.2 (0.9-1.1) H 05/02/21 14:00 APTT 25.4 Seconds (21.0-31.0) 05/02/21 14:00 Hemoglobin A1c 5.4 % (4.5-5.6) 05/03/21 07:47 Urine Color Yellow 05/02/21 15:27 Urine Appearance Clear (Clear) 05/02/21 15:27 Urine pH 5.0 (4.5-7.5) 05/02/21 15:27 Ur Specific [place] Pool 1.009 (1.000-1.030) 05/02/21 15:27 Urine Protein Negative (Negative) 05/02/21 15:27 Urine Glucose (UA) Negative (Negative) 05/02/21 15:27 Urine Ketones Negative (Negative) 05/02/21 15:27 Urine Nitrite Negative (Negative) 05/02/21 15:27 Ur Leukocyte Esterase 1+ (Negative) H 05/02/21 15:27 Urine WBC (Auto) 1-5 /hpf (0-5) 05/02/21 15:27 Urine RBC (Auto) 0-4 /hpf (0-4) 05/02/21 15:27 U Hyaline Cast (Auto) 1-5 /lpf (0-5) 05/02/21 15:27 U Epithel Cells (Auto) 0-5 /lpf (0-5) 05/02/21 15:27 Urine Bacteria (Auto) Negative (Negative) 05/02/21 15:27 05/02/21 17:40 Escherichia coli Shiga Toxins Test - Preliminary Stool Stool Culture - Preliminary No Salmonella isolated to date, No Shigella isolated to date, No Campylobacter jejuni isolated to date. 05/04/21 05/04/21 11:21 07:19 POC Glucose 235 H 142 H Electrocardiogram Date: 05/02/21 Findings: + RBBB Afib with PVCs, rate 85, L axis deviation Chest X-Ray Date: 05/02/21 SINGLE VIEW CHEST CLINICAL HISTORY: Dysrhythmia. Leg swelling. FINDINGS: An AP, portable, upright chest radiograph is compared to study dated 01/09/2021. The examination is degraded by portable technique and apical lordotic positioning. The patient is status post midline sternotomy. The heart is enlarged. The pulmonary vasculature is noncongested. There is bibasilar scarri ng/atelectasis. No airspace consolidation or large pleural effusion is identified. No pneumothorax is seen. The skeletal structures are osteopenic. The bony thorax is grossly intact. IMPRESSION: Cardiomegaly with no acute cardiopulmonary abnormality. ACT 112: Negative or not required by law. Electronically signed by: Angelo Billingsley M.D. 05/02/2021 5:09 PM Dictated: [id number]: [id number] Echocardiogram Date: 02/21/21 EF: 60-65 LV Function: normal RWMA: + none Other Findings: + atrial enlargement (mild R atrial dilation, moderate L atrial dilation) and + LVH (mild concentric) Valvular Disease: + MR (mild)
--- NOTE | 2021-05-04 16:12 | Cardiology Progress Note ---
Date of Service May 04, 2021 Assessment & Plan (1) Acute heart failure with preserved ejection fraction: (2) CAD in [place] artery: (3) S/P CABG (coronary artery bypass graft): (4) Persistent atrial fibrillation: (5) Hypertension: (6) Dyslipidemia: Plan: ASSESSMENT/PLAN: 1. Acute HFpEF (Heart failure with preserved EF): Still remains hypervolemic but improved since presentation. Unfortunately, I&Os are not accurate as he is unable to collect all of his urine. His weight initially trended downward until today. Continue current diuretic for now but bicarb is now elevated in laboratory data suggesting possible contraction alkalosis. Repeat basic m etabolic panel now. May need to consider SCDs although mind. Monitor potassium closely. He has received supplementation as per primary service but may require more, especially since he has been having diarrhea until today. Low-sodium diet, less than 2000 mg daily. Strict I&Os and daily weights. Heart failure program referral. Echo ordered. 2. CAD s/p CABG x 3: No angina. Continue beta-hari. Had been on ARB in the past but was discontinued following hospitalization at [facility]. Continue high- intensity statin therapy. Recommend cardiac rehab on discharge. 3. Atrial fibrillation: Developed postoperative atrial fibrillation following CABG. Has been in atrial fibrillation since presentation. Continue amiodarone and anticoagulation for stroke risk reduction. He states that he has been compliant with anticoagulation therapy without missing doses. Therefore, discussed possibility of cardioversion. AFib may be contributing to his CHF as well. Risks and benefits of cardioversion were discussed with him. Will proceed with cardioversion tomorrow electively. 4. Hypertension: Blood pressure acceptable. Continue current regimen. 5. Dyslipidemia: Continue high-intensity statin therapy. 6. Hypokalemia and Hypo magnesemia: Magnesium has normalized following supplementation. Continue to replete potassium as appropriate. 7. C diff diarrhea: Diarrhea has improved today. Treatment as per primary service. 9. Disposition: Cardiology will continue to follow. Plan of care discussed with Dr. Smith of the primary hospitalist service. Patient's was at the bedside. Admission and Anticipated Discharge Date Admission Date: May 02, 2021 Subjective He is feeling better since admission. He has orthopnea briefly when first laying down which recovers. He denies shortness of breath otherwise. He denies chest pain, syncope, near-syncope, palpitations. He states that his legs remain edematous. His appetite has improved. He admits that he is urinating more frequently and also admits that he is unable to collect all of his urine for measurement by the nursing staff. Diarrhea has subsided so far today, significant improvement since presentation. His was present at the bedside. Review of systems: As above. Physical Exam Physical Exam: Gen.: No acute distress. Alert. HEENT: Anicteric sclera. Neck: Mild JVD with hepatic jugular reflux. Cardiac: PMI was nonpalpable. No ventricular heave. Irregularly irregular with normal rate. Normal S1-S2. 1/6 early peaking systolic ejection murmur best heard at the right upper sternal border. No rubs or gallops. Pulmonary: Clear to auscultation bilaterally without wheezes, rales, or rhonchi. Abdomen: Soft, nontender, nondistended, with normoactive bowel sounds. No bruits noted. Extremities: 2+ radial pulses bilaterally. 2+ posterior tibialis pulses bilaterally. 3+ bilateral pitting edema to the knees with 1+ pitting edema from the knees to the hips. No cyanosis. Psychiatric: Affect appears appropriate. Chest: Sternotomy site is clean, dry, and intact without erythema or discharge. Results & Data ([facility]) Vital Signs (Past 12 Hours) Vital Signs Temp Pulse Pulse Resp BP Pulse Ox 05/04/21 15:26 36.5 C 68 19 117/67 98 05/04/21 11:26 36.5 C 69 19 129/52 L 98 05/04/21 10:34 73 05/04/21 07:22 36.2 C L 77 20 123/51 L 97 Intake & Output 05/02/21 05/03/21 05/04/21 05/05/21 06:59 06:59 06:59 06:59 Intake Total 660 / 660 96 / 96 700 / 700 Output Total 205 / 205 918 / 918 Balance 455 / 455 -822 / -822 700 / 700 Weight 193 lb 5.526 oz 194 lb 14.218 oz 194 lb 14.218 oz Laboratory Results Laboratory Results - last 24 hr 05/03/21 05/04/21 05/04/21 20:14 07:07 07:19 Sodium 140 Potassium 3.1 L Chloride 96 L Carbon Dioxide 43 H* Anion Gap 2.0 L BUN 17 Creatinine 0.91 Est Cr Clr Drug Dosing 62.7 Est GFR ( Amer) 90.6 Est GFR (Non-Af Amer) 78.2 BUN/Creatinine Ratio 18.9 Glucose 139 H POC Glucose 160 H 142 H Calcium 10.3 H 05/04/21 11:21 Sodium Potassium Chloride Carbon Dioxide Anion Gap BUN Creatinine Est Cr Clr Drug Dosing Est GFR ( Amer) Est GFR (Non-Af Amer) BUN/Creatinine Ratio Glucose POC Glucose 235 H Calcium Diagnostic Findings Telemetry personally reviewed: AFib with PVCs. Heart rate well controlled. Medications Administered Current Inpatient Medications Amiodarone HCl (Amiodarone 200 Mg Tab) 200 mg PO DAILY ARCADIO Stop: 06/02/21 08:59 Last Admin: 05/04/21 08:58 Dose: 200 mg Documented by: Apixaban (Apixaban 5 Mg Tablet) 5 mg PO BID ARCADIO Stop: 06/01/21 20:59 Last Admin: 05/04/21 08:57 Dose: 5 mg Documented by: Aspirin (Aspirin 81 Mg Ectab) 81 mg PO DAILY ARCADIO Stop: 06/02/21 08:59 Last Admin: 05/04/21 08:59 Dose: 81 mg Documented by: Atorvastatin Calcium (Atorvastatin 40 Mg Tab) 40 mg PO QAM ARCADIO Stop: 06/02/21 08:59 Last Admin: 05/04/21 08:57 Dose: 40 mg Documented by: Cyanocobalamin (Cyanocobalamin (Vitamin B-12) 2,500 Mcg Tab.Subl) 5,000 mcg SL DAILY ARCADIO Stop: 06/02/21 08:59 Last Admin: 05/04/21 09:00 Dose: 5,000 mcg Documented by: Dextrose (Dextrose 50% 50 Ml Syringe) 25 - 50 ml IV UD PRN; Protocol PRN Reason: Hypoglycemia Protocol Stop: 06/02/21 01:14 Ferrous Sulfate (Ferrous Sulfate 325 Mg Tab) 325 mg PO TID ARCADIO Stop: 06/01/21 20:59 Last Admin: 05/04/21 09:00 Dose: 325 mg Documented by: Glucagon (Glucagon For Inj 1 Mg Vial) 1 mg SQ UD PRN; Protocol PRN Reason: Hypoglycemia Protocol Stop: 06/02/21 01:14 Glucose (Glucose 40% Gel 15 Gm Tube) 15 - 30 gm PO UD PRN; Protocol PRN Reason: Hypoglycemia Protocol Stop: 06/02/21 01:14 Glucose (Glucose 10 Tabs/Tube) 4 - 8 tabs PO UD PRN; Protocol PRN Reason: Hypoglycemia Protocol Stop: 06/02/21 01:14 Furosemide 80 mg/ Syringe 8 mls @ 4 mls/min IV BID17 ARCADIO Stop: 06/02/21 16:59 Last Admin: 05/04/21 08:57 Dose: 4 mls/min Documented by: Insulin Aspart (Insulin Aspart 100 Units/Ml 3 Ml Pen) 0 units SC ACHS [facility]; Protocol Stop: 06/02/21 01:59 Last Admin: 05/04/21 12:02 Dose: 3 units Documented by: Levothyroxine Sodium (Levothyroxine Sodium 75 Mcg Tablet) 75 mcg PO DAILYBB [facility] Stop: 06/02/21 06:29 Last Admin: 05/04/21 06:19 Dose: 75 mcg Documented by: Melatonin (Melatonin 3 Mg Tab) 9 mg PO HS PRN PRN Reason: Sleep Stop: 06/01/21 20:43 Metoprolol Succinate (Metoprolol Succ 25mg Ext Rel Tab) 12.5 mg PO BID [facility] Stop: 06/01/21 20:59 Last Admin: 05/04/21 09:00 Dose: 12.5 mg Documented by: Miscellaneous (Carbohydrates For Hypoglycemia ) 15 - 30 gm PO UD PRN PRN Reason: Hypoglycemia Treatment Stop: 06/02/21 01:14 Multivitamins (Multivitamin Tab) 1 tab PO DAILY ARCADIO Stop: 06/02/21 08:59 Last Admin: 05/04/21 08:58 Dose: 1 tab Documented by: Pantoprazole Sodium (Pantoprazole 40 Mg Tab) 40 mg PO DAILY ARCADIO Stop: 06/02/21 08:59 Last Admin: 05/04/21 08:58 Dose: 40 mg Documented by: Potassium Chloride (Potassium Chloride Crtab 20 Meq Tabcr) 20 meq PO DAILY [facility] Stop: 06/02/21 08:59 Last Admin: 05/04/21 09:02 Dose: 20 meq Documented by: Quetiapine Fumarate (Quetiapine Fumarate 25 Mg Tablet) 25 mg PO DAILY [facility] Stop: 06/02/21 08:59 Last Admin: 05/04/21 08:59 Dose: 25 mg Documented by: Raspberry (Raspberry Syrup 5 Ml Udp) 5 ml PO Q6 [facility] Stop: 05/17/21 00:00 Last Admin: 05/04/21 12:02 Dose: 5 ml Documented by: Saccharomyces Boulardii (Saccharomyces Boulardii 250 Mg Cap) 250 mg PO DAILY ARCADIO Stop: 06/02/21 08:59 Last Admin: 05/04/21 08:58 Dose: 250 mg Documented by: Tamsulosin HCl (Tamsulosin Hcl 0.4 Mg Cap) 0.8 mg PO HS ARCADIO Stop: 06/01/21 20:59 Last Admin: 05/03/21 21:55 Dose: 0.8 mg Documented by: Thiamine HCl (Thiamine Hcl 100 Mg Tab) 100 mg PO DAILY ARCADIO Stop: 06/02/21 08:59 Last Admin: 05/04/21 08:59 Dose: 100 mg Documented by: Vancomycin HCl (Vancomycin Hcl 250 Mg/5 Ml Soln) 250 mg PO Q6 ARCADIO Stop: 05/13/21 00:00 Last Admin: 05/04/21 12:02 Dose: 250 mg Documented by: Vitamin D (Cholecalciferol 1,000 Units 25 Mcg Tab) 1,000 units PO DAILY ARCADIO Stop: 06/02/21 08:59 Last Admin: 05/04/21 08:58 Dose: 1,000 units Documented by: PG Care Time/CCT Total # of Minutes Spent Total Time Spent with Patient: Total time spent is greater than 50% in coordination of care (as documented) at patient's floor/unit and/or counseling patient: Coding Level of Care Code 87322 Subseq Hosp Care Lvl 3 Diagnoses Acute heart failure with preserved ejection fraction I50.31 CAD in [place] artery I25.10 S/P CABG (coronary artery bypass graft) Z95.1 Persistent atrial fibrillation I48.19 Hypertension I10 Dyslipidemia E78.5
--- NOTE | 2021-05-04 17:12 | Hospitalist Progress Note ---
Date of Service May 04, 2021 Assessment & Plan (1) Acute heart failure with preserved ejection fraction: Plan: (1) Acute heart failure with preserved ejection fraction: -Patient admitted with above problem. -First placed on IV diuretic 40 mg BID --> patient remains hypervolemic, changed to 80mg BID; keep negative balance -Monitor renal function and electrolytes closely. -Low-sodium diet, less than 2000 mg daily; high sodium diet most likely cause for condition -Strict I&Os and daily weights. -Cardio consult --> "Still remains hypervolemic but improved since presentation. Unfortunately, I&Os are not accurate as he is unable to collect all of his urine. His weight initially trended downward until today. Continue current diuretic for now but bicarb is now elevated in laboratory data suggesting possible contraction alkalosis. Repeat basic metabolic panel now. May need to consider SCDs although mind. Monitor potassium closely. He has received supplementation as per primary service but may require more, especially since he has been having diarrhea until today. Low-sodium diet, less than 2000 mg daily. Strict I&Os and daily weights. Heart failure program referral. Echo ordered." -repeat BMP pending (2) Persistent atrial fibrillation: -cont anticoagulation and rate control -still not in sinus rhythm. -A fib may be adding to CHF and hindering diuresis treatment. Cardiology opts to cardiovert tomorrow. (3) S/P CABG (coronary artery bypass graft): - No angina pectoris. - Continue beta-hari. - Continue Atorvastatin 40 mg daily. - Cardio recommends cardiac rehab following discharge. (4) C. difficile diarrhea: - c. diff toxin and gene were positive. - No more diarrhea, cont IV vancomycin; consider switching to fosfomycin since now 1st line medication (5) Dyslipidemia: - cont atorvastatin 40mg PO daily (6) Type 2 diabetes mellitus: - on metformin as outpatient. - a1c 5.4 (7) BPH (benign prostatic hyperplasia): - cont home meds (8) Hypertension: - BP at goal. - cont home meds (9) Hypomagnesemia: - resolved (10) Possible cellulitis: - Consider antibiotic therapy if felt to be necessary. (11) DM2 - insulin sliding scale - hold metformin; A1C 5.4 (12) hypokalemia - 3.1 this morning, repleting, recheck tomorrow Admission and Anticipated Discharge Date Admission Date: May 02, 2021 Supervising Physician Co-Signing Physician Notes I personally examined the patient and verified all shankar points of history and exam, discussed case, and agree with decision making with Dr Simpson. Feeling a bit better. Breathing reasonable. Still has diarrhea, but no abdominal pain. Vitals noted, in general he is awake and alert pleasant no distress. HEENT normocephalic atraumatic mucous membranes moist. Lungs are clear but diminished throughout. No rales rhonchi or wheezes good effort. Abdomen mildly distended but nontender. HFpEF -Continue Lasix -Follow clinically and labs -Version might help flow C. difficile colitis -Appears recurrence -Vancomycin at this time -Prolonged course likely Otherwise as above. Subjective Patient feels the same as yesterday no changes and no acute complaints. Diarrhea has stopped since admission. Denies, SOB, chest pain. +leg swelling. Review of Systems Review of Systems: All systems reviewed & are unremarkable except as noted in HPI & below Physical Exam Physical Exam: Constitutional: WD/WN, vitals as above Neck: trachea midline, no thyromegaly Respiratory: normal respiratory effort, rales heard in lower lungs Cardiovascular: Rate/Rhythm: + irregularly irregular, + JVD Gastrointestinal (Abdomen): normal bowel sounds, soft, nontender, no hepatosplenomegaly Musculoskeletal: no cyanosis or clubbing, extremities motor strength 5/5 Skin: no rashes, warm and dry (except for redness around bilateral lower extremity) Neurologic: PERRL, EOMI, accommodation normal, no face palsy, no dysarthria Psychiatric: Orientation: alert Lymphatic: no cervical or axillary lymphadenopathy venous changes noted in bilateral lower extremity. Results & Data Results & Data ([facility]) Vital Signs (Past 12 Hours) Vital Signs Temp Pulse Pulse Resp BP Pulse Ox 05/04/21 15:26 36.5 C 68 19 117/67 98 05/04/21 11:26 36.5 C 69 19 129/52 L 98 05/04/21 10:34 73 05/04/21 07:22 36.2 C L 77 20 123/51 L 97 Resident Activity Tracking Resident Involvement: Resident Care Provided Care Provided: Adult Hospital Medicine
--- NOTE | 2021-05-04 17:41 | Billing Data ---
Date of Service May 04, 2021 Coding Level of Care Code 38617 Subseq Hosp Care Lvl 3
[2021-05-04 17:44] LABS: BUN Creatinine Ratio 20.2 (10-20); Calcium 9.9 mg/dl (8.5-10.1); Creatinine Clr Calc Pharmacy 58.3 ml/min; Est GFR (African American) 82.9 ml/min; Est GFR (Non-African American) 71.5 ml/min
[2021-05-04] MEDS: TAMSULOSIN HCL 0.4 MG CAP PO SCH (20:04)
[2021-05-05] MEDS: RASPBERRY SYRUP 5 ML UDP PO SCH ×4 (04:58→22:42)
[2021-05-05] MEDS: VANCOMYCIN HCL 250 MG/5 ML SOLN PO SCH ×4 (04:59→22:42)
[2021-05-05] MEDS: LEVOTHYROXINE SODIUM 75 MCG TABLET PO SCH (04:59)
[2021-05-05] MEDS: APIXABAN 5 MG TABLET PO SCH ×2 (06:51→20:58)
--- NOTE | 2021-05-05 07:32 | Cardiology Progress Note ---
Date of Service May 05, 2021 Assessment & Plan (1) Acute heart failure with preserved ejection fraction: (2) CAD in [place] artery: (3) S/P CABG (coronary artery bypass graft): (4) Persistent atrial fibrillation: (5) Hypertension: (6) Dyslipidemia: Plan: ASSESSMENT/PLAN: 1. Acute HFpEF (Heart failure with preserved EF): He remains hypervolemic. Daily fluid balance and weight do not suggest significant diuresis over the past 24 hours however he has had some urine outputs that were not calculated due to incontinence. His bicarb level has improved as there was concern for contraction alkalosis yesterday. This morning labs are pending. Add Diuril 250 mg IV 30 minutes prior to today's dose of Lasix. Would try to diurese at least 1-2 L today. Monitor electrolytes and renal function closely. If this is effective and labs remain reasonable, would consider another dose each day as needed to achieve adequate urine output. He will be seen today by heart failure program, Suzie. Low-sodium diet, less than 2000 mg daily. Strict I&Os and daily weights. Echo is pending. If LV systolic function significantly reduced, would recommend standard therapy. 2. CAD s/p CABG x 3: No angina. Continue beta-hari. Had been on ARB in the past but was discontinued following hospitalization at [facility]. Continue high- intensity statin therapy. Recommend cardiac rehab on discharge. 3. Atrial fibrillation s/p cardioversoni (05/05/21): Developed postoperative atrial fibrillation following CABG. Successfully converted to sinus rhythm today.. Continue amiodarone and anticoagulation for stroke risk reduction. AFib may or may not have been contributing to his CHF. Monitor TSH and transaminase levels while on amiodarone. 4. Hypertension: Blood pressure acceptable. Continue current regimen. 5. Dyslipidemia: Continue high-intensity statin therapy. 6. Hypokalemia and Hypo magnesemia: Magnesium and potassium levels have normalized following supplementation. 7. C diff diarrhea: Improved. Treatment as per primary service. 9. Disposition: I will be away from the hospital for the next several days. Please call the on-call field human resources manager, Dr. Monae for any questions or concerns. Patient care communicated with Dr. Smith of the primary hospitalist service. Patient's called to notify of successful cardioversion however she did not answer. Admission and Anticipated Discharge Date Admission Date: May 02, 2021 Subjective Feeling better each day. Has gone approximately 24 hours without further bowel movement. He is passing gas. Denies shortness of breath, syncope, near- syncope, chest pain. Continues to have swelling. Admits that he has had some incontinence episodes and therefore I&Os remain in complete. He underwent cardioversion this morning and tolerated it well. AFib was successfully converted to sinus rhythm with 200 joules in a synchronized fashion. He tolerated the procedure well. Review of systems: As above. Physical Exam Physical Exam: Gen.: No acute distress. Alert. HEENT: Anicteric sclera. Neck: Mild JVD. Cardiac: PMI was nonpalpable. No ventricular heave. Regular (after cardioversion). Normal S1-S2. 1/6 early peaking systolic ejection murmur best heard at the right upper sternal border. No rubs or gallops. Pulmonary: Clear to auscultation bilaterally without wheezes, rales, or rhonchi. Abdomen: Soft, nontender, nondistended, with normoactive bowel sounds. No bruits noted. Extremities: 2+ radial pulses bilaterally. 2+ posterior tibialis pulses bilaterally. 3+ bilateral pitting edema to the knees with 1+ pitting edema from the knees to the hips. No cyanosis. Psychiatric: Affect appears appropriate. Chest: Sternotomy site is clean, dry, and intact without erythema or discharge. Results & Data ([facility]) Vital Signs (Past 12 Hours) Vital Signs Temp Pulse Resp BP BP Pulse Ox 05/05/21 07:06 72 18 123/65 98 05/05/21 03:49 36.6 C 74 18 114/52 L 97 05/04/21 23:55 36.4 C L 65 18 112/51 L 95 Intake & Output 05/03/21 05/04/21 05/05/21 05/06/21 06:59 06:59 06:59 06:59 Intake Total 660 / 660 96 / 96 700 / 700 Output Total 205 / 205 918 / 918 825 / 825 Balance 455 / 455 -822 / -822 -125 / -125 Weight 193 lb 5.526 oz 194 lb 14.218 oz 194 lb 7.163 oz 194 lb 7.163 oz Laboratory Results Laboratory Results - last 24 hr 05/04/21 05/04/2105/04/21 07:07 11:21 16:35 Sodium 140 Potassium 3.1 L Chloride 96 L Carbon Dioxide 43 H* Anion Gap 2.0 L BUN 17 Creatinine 0.91 Est Cr Clr Drug Dosing 62.7 Est GFR ( Amer) 90.6 Est GFR (Non-Af Amer) 78.2 BUN/Creatinine Ratio 18.9 Glucose 139 H POC Glucose 235 H 146 H Calcium 10.3 H 05/04/21 05/04/21 16:53 20:09 Sodium 137 Potassium 4.0 D Chloride 98 Carbon Dioxide 35 H Anion Gap 4.0 BUN 20 H Creatinine 0.98 Est Cr Clr Drug Dosing 58.3 Est GFR ( Amer) 82.9 Est GFR (Non-Af Amer) 71.5 BUN/Creatinine Ratio 20.2 H Glucose 126 H POC Glucose 151 H Calcium 9.9 Diagnostic Findings Cardioversion performed 05/05/2021: AFib successfully converted to sinus rhythm. Telemetry: Atrial fibrillation prior to cardioversion. Medications Administered Current Inpatient Medications Amiodarone HCl (Amiodarone 200 Mg Tab) 200 mg PO DAILY [facility] Stop: 06/02/21 08:59 Last Admin: 05/04/21 08:58 Dose: 200 mg Documented by: Apixaban (Apixaban 5 Mg Tablet) 5 mg PO BID [facility] Stop: 06/01/21 20:59 Last Admin: 05/05/21 06:51 Dose: 5 mg Documented by: Aspirin (Aspirin 81 Mg Ectab) 81 mg PO DAILY [facility] Stop: 06/02/21 08:59 Last Admin: 05/04/21 08:59 Dose: 81 mg Documented by: Atorvastatin Calcium (Atorvastatin 40 Mg Tab) 40 mg PO QAM [facility] Stop: 06/02/21 08:59 Last Admin: 05/04/21 08:57 Dose: 40 mg Documented by: Cyanocobalamin (Cyanocobalamin (Vitamin B-12) 2,500 Mcg Tab.Subl) 5,000 mcg SL DAILY [facility] Stop: 06/02/21 08:59 Last Admin: 05/04/21 09:00 Dose: 5,000 mcg Documented by: Dextrose (Dextrose 50% 50 Ml Syringe) 25 - 50 ml IV UD PRN; Protocol PRN Reason: Hypoglycemia Protocol Stop: 06/02/21 01:14 Ferrous Sulfate (Ferrous Sulfate 325 Mg Tab) 325 mg PO TID [facility] Stop: 06/01/21 20:59 Last Admin: 05/04/21 20:04 Dose: 325 mg Documented by: Glucagon (Glucagon For Inj 1 Mg Vial) 1 mg SQ UD PRN; Protocol PRN Reason: Hypoglycemia Protocol Stop: 06/02/21 01:14 Glucose (Glucose 40% Gel 15 Gm Tube) 15 - 30 gm PO UD PRN; Protocol PRN Reason: Hypoglycemia Protocol Stop: 06/02/21 01:14 Glucose (Glucose 10 Tabs/Tube) 4 - 8 tabs PO UD PRN; Protocol PRN Reason: Hypoglycemia Protocol Stop: 06/02/21 01:14 Furosemide 80 mg/ Syringe 8 mls @ 4 mls/min IV BID17 [facility] Stop: 06/02/21 16:59 Last Admin: 05/04/21 17:07 Dose: 4 mls/min Documented by: Chlorothiazide Sodium 250 mg/ (Dextrose) 59 mls @ 200 mls/hr IV ONCE ONE Stop: 05/05/21 08:47 Insulin Aspart (Insulin Aspart 100 Units/Ml 3 Ml Pen) 0 units SC ACHS [facility]; Protocol Stop: 06/02/21 01:59 Last Admin: 05/04/21 20:11 Dose: 1 units Documented by: Levothyroxine Sodium (Levothyroxine Sodium 75 Mcg Tablet) 75 mcg PO DAILYBB [facility] Stop: 06/02/21 06:29 Last Admin: 05/05/21 04:59 Dose: 75 mcg Documented by: Melatonin (Melatonin 3 Mg Tab) 9 mg PO HS PRN PRN Reason: Sleep Stop: 06/01/21 20:43 Metoprolol Succinate (Metoprolol Succ 25mg Ext Rel Tab) 12.5 mg PO BID [facility] Stop: 06/01/21 20:59 Last Admin: 05/04/21 20:04 Dose: 12.5 mg Documented by: Miscellaneous (Carbohydrates For Hypoglycemia ) 15 - 30 gm PO UD PRN PRN Reason: Hypoglycemia Treatment Stop: 06/02/21 01:14 Multivitamins (Multivitamin Tab) 1 tab PO DAILY [facility] Stop: 06/02/21 08:59 Last Admin: 05/04/21 08:58 Dose: 1 tab Documented by: Pantoprazole Sodium (Pantoprazole 40 Mg Tab) 40 mg PO DAILY [facility] Stop: 06/02/21 08:59 Last Admin: 05/04/21 08:58 Dose: 40 mg Documented by: Potassium Chloride (Potassium Chloride Crtab 20 Meq Tabcr) 20 meq PO DAILY [facility] Stop: 06/02/21 08:59 Last Admin: 05/04/21 09:02 Dose: 20 meq Documented by: Quetiapine Fumarate (Quetiapine Fumarate 25 Mg Tablet) 25 mg PO DAILY [facility] Stop: 06/02/21 08:59 Last Admin: 05/04/21 08:59 Dose: 25 mg Documented by: Raspberry (Raspberry Syrup 5 Ml Udp) 5 ml PO Q6 [facility] Stop: 05/17/21 00:00 Last Admin: 05/05/21 04:58 Dose: 5 ml Documented by: Saccharomyces Boulardii (Saccharomyces Boulardii 250 Mg Cap) 250 mg PO DAILY [facility] Stop: 06/02/21 08:59 Last Admin: 05/04/21 08:58 Dose: 250 mg Documented by: Tamsulosin HCl (Tamsulosin Hcl 0.4 Mg Cap) 0.8 mg PO HS [facility] Stop: 06/01/21 20:59 Last Admin: 05/04/21 20:04 Dose: 0.8 mg Documented by: Vancomycin HCl (Vancomycin Hcl 250 Mg/5 Ml Soln) 250 mg PO Q6 [facility] Stop: 05/13/21 00:00 Last Admin: 05/05/21 04:59 Dose: 250 mg Documented by: Vitamin D (Cholecalciferol 1,000 Units 25 Mcg Tab) 1,000 units PO DAILY [facility] Stop: 06/02/21 08:59 Last Admin: 05/04/21 08:58 Dose: 1,000 units Documented by: PG Care Time/CCT Total # of Minutes Spent Total Time Spent with Patient: Total time spent is greater than 50% in coordination of care (as documented) at patient's floor/unit and/or counseling patient: Coding Level of Care Code 45443 Subseq Hosp Care Lvl 3 Diagnoses Acute heart failure with preserved ejection fraction I50.31 CAD in [place] artery I25.10 S/P CABG (coronary artery bypass graft) Z95.1 Persistent atrial fibrillation I48.19 Hypertension I10 Dyslipidemia E78.5
--- NOTE | 2021-05-05 07:46 | Cardioversion ---
Date of Service May 05, 2021 PG Electrical Cardioversion Rp Electrical Cardioversion Report Procedure: Elective DC cardioversion Indication: Atrial fibrillation Consent: Informed consent obtained. Anticoagulation: Compliance with therapeutic anticoagulation since onset of atr ial fibrillation. Antiarrhythmic therapy: Amiodarone. Time-out: Performed prior to procedure. Sedation: Provided by Anesthesiology. Details: After he was sufficiently sedated, 200 joules were delivered in a synchronized fashion which successfully converted atrial fibrillation to sinus rhythm. He tolerated the procedure well without known complications at the time of this note. Plan: 1. Continue anticoagulation therapy without interruption for at least 4 weeks, possibly longer. 2. Continue amiodarone 200 mg daily. Coding Level of Care Code Cardioversion, elective Additional Codes Electrical Cardioversion Report ([id number])
[2021-05-05] MEDS ORDERED: PROPOFOL IV EMULSION 10 MG/ML 20 ML VIAL IV ONE (07:49)
[2021-05-05] MEDS ORDERED: LIDOCAINE 2% MPF LOCAL 5 ML VIAL INFIL ONE (07:49)
[2021-05-05] MEDS ORDERED: CHLOROTHIAZIDE SODIUM 250 MG in DEXTROSE 5% 50 ML IV ONE (08:30)
[2021-05-05] MEDS: ASPIRIN 81 MG ECTAB PO SCH (09:16)
[2021-05-05] MEDS: AMIODARONE 200 MG TAB PO SCH (09:16)
[2021-05-05] MEDS: ATORVASTATIN 40 MG TAB PO SCH (09:16)
[2021-05-05] MEDS: CYANOCOBALAMIN (VITAMIN B-12) 2,500 MCG TAB.SUBL SL SCH (09:17)
[2021-05-05] MEDS: POTASSIUM CHLORIDE CRTAB 20 MEQ TABCR PO SCH (09:17)
[2021-05-05] MEDS: METOPROLOL SUCC 25MG EXT REL TAB PO SCH ×2 (09:17→20:57)
[2021-05-05] MEDS: CHOLECALCIFEROL 1,000 UNITS 25 MCG TAB PO SCH (09:17)
[2021-05-05] MEDS: QUEtiapine FUMARATE 25 MG TABLET PO SCH (09:17)
[2021-05-05] MEDS: PANTOprazole 40 MG TAB PO SCH (09:17)
[2021-05-05] MEDS: MULTIVITAMIN TAB PO SCH (09:17)
[2021-05-05] MEDS: FERROUS SULFATE 325 MG TAB PO SCH ×3 (09:17→20:58)
[2021-05-05] MEDS: SACCHAROMYCES BOULARDII 250 MG CAP PO SCH (09:17)
[2021-05-05] MEDS: INSULIN ASPART 100 UNITS/ML 3 ML PEN SC SCH ×4 (09:19→20:45)
[2021-05-05] MEDS: FUROSEMIDE 80 MG in SYRINGE 0 ML IV SCH ×2 (10:00→17:15)
[2021-05-05 10:23] LABS: Hematocrit (blood only) 30.6 % (42-52); Hemoglobin 9.2 g/dL (14.0-18.0); Mean Corpuscular Hemoglobin 32.5 pg (25-34); Mean Corpuscular Hgb Conc 30.1 g/dL (32-36); Mean Corpuscular Volume 108.1 fL (80-100); Mean Platelet Volume 8.5 fL (7.4-10.4); Platelet Count 219 K/uL (130-400); RDW Coefficient of Variation 15.8 % (11.5-14.5); RDW Standard Deviation 62.4 fL (36.4-46.3); Red Blood Count 2.83 M/uL (4.7-6.1); White Blood Count 7.06 K/uL (4.8-10.8)
[2021-05-05 10:50] LABS: BUN Creatinine Ratio 17.8 (10-20); Calcium 10.6 mg/dl (8.5-10.1); Creatinine Clr Calc Pharmacy 64.1 ml/min; Est GFR (African American) 92.3 ml/min; Est GFR (Non-African American) 79.6 ml/min; Magnesium 2.1 mg/dl (1.8-2.4)
--- NOTE | 2021-05-05 12:12 | Anesthesiology Progress Note ---
Date of Service May 05, 2021 Anesthesia Post Procedure Vital Signs Vital Signs: Temp Pulse Pulse Pulse Resp BP BP 05/05/21 11:49 36.7 C 67 22 133/73 05/05/21 10:37 36.6 C 80 20 116/50 L 05/05/21 10:05 72 05/05/21 08:53 74 05/05/21 08:24 36.5 C 75 16 114/62 05/05/21 07:55 69 15 116/52 L 05/05/21 07:50 73 15 115/53 L 05/05/21 07:45 70 15 112/51 L 05/05/21 07:06 72 18 123/65 05/05/21 03:49 36.6 C 74 18 114/52 L 05/04/21 23:55 36.4 C L 65 18 112/51 L 05/04/21 19:14 36.9 C 76 18 125/70 05/04/21 15:26 36.5 C 68 19 117/67 Pulse Ox 05/05/21 11:49 97 05/05/21 10:37 95 05/05/21 10:05 05/05/21 08:53 05/05/21 08:24 97 05/05/21 07:55 93 05/05/21 07:50 93 05/05/21 07:45 93 05/05/21 07:06 98 05/05/21 03:49 97 05/04/21 23:55 95 05/04/21 19:14 97 05/04/21 15:26 98 Transfer of Care Handoff Completed per policy Notes Mental Status: alert / awake / arousable and participated in evaluation Patient Amnestic to Procedure: Yes Nausea / Vomiting: adequately controlled Pain: adequately controlled Airway Patency, RR, SpO2: stable & adequate BP & HR: stable & adequate Hydration State: stable & adequate Anesthetic Complications: no major complications apparent and Pt Satisfied with anesthetic care
[2021-05-05 12:48] LABS: Potassium 3.1 mmol/L (3.5-5.1)
[2021-05-05] MEDS ORDERED: POTASSIUM CHLORIDE CRTAB 20 MEQ TABCR PO STA (13:00)
--- NOTE | 2021-05-05 13:36 | Electrocardiogram Report ---
Test Reason : Blood Pressure : / mmHG Vent. Rate : 071 BPM Atrial Rate : 000 BPM P-R Int : 000 ms QRS Dur : 180 ms QT Int : 512 ms P-R-T Axes : 000 -81 060 degrees QTc Int : 556 ms Atrial fibrillation with premature ventricular or aberrantly conducted complexes Right bundle branch block Left anterior fascicular block Bifascicular block Abnormal ECG When compared with ECG of 02-MAY-2021 14:31, No significant change Confirmed by Ananth Chicas ([id number]) on 05/05/2021 1:36:14 PM Referred By: Ranjit Adler Confirmed By:Ananth Chicas
--- NOTE | 2021-05-05 13:44 | Hospitalist Progress Note ---
Date of Service May 05, 2021 Assessment & Plan (1) Acute heart failure with preserved ejection fraction: Plan: (1) Acute heart failure with preserved ejection fraction: -Patient admitted with above problem. -First placed on IV diuretic 40 mg BID --> patient remains hypervolemic, changed to 80mg BID; keep negative balance -Monitor renal function and electrolytes closely. -Low-sodium diet, less than 2000 mg daily; high sodium diet most likely cause for condition -Strict I&Os and daily weights. -Cardio consult --> "Still remains hypervolemic but improved since presentation. Unfortunately, I&Os are not accurate as he is unable to collect all of his urine. His weight initially trended downward until today. Continue current diuretic for now but bicarb is now elevated in laboratory data suggesting possible contraction alkalosis. Repeat basic metabolic panel now. May need to consider SCDs although mind. Monitor potassium closely. He has received supplementation as per primary service but may require more, especially since he has been having diarrhea until today. Low-sodium diet, less than 2000 mg daily. Strict I&Os and daily weights. Heart failure program referral. Echo ordered." -continue to monitor with serial BMPs -echo results pending -Physical exam showing signs of improvement. Less leg swelling and tenderness, Minimal rales. Creatine went down however so patient appears to still be "wet" --> continue lasix (2) Persistent atrial fibrillation: -cont anticoagulation and rate control -A fib may be adding to CHF and hindering diuresis treatment. -Cardioverted today --> now in normal sinus rhythm (3) S/P CABG (coronary artery bypass graft): - No angina pectoris. - Continue beta-hari. - Continue Atorvastatin 40 mg daily. - Cardio recommends cardiac rehab following discharge. (4) C. difficile diarrhea: - c. diff toxin and gene were positive. - No more diarrhea, cont IV vancomycin; consider switching to fosfomycin since now 1st line medication - for now, IV vanc cont. -when discharged, recurrent c. diff total dosing: vancomycin 125mg PO q6h x10-14 days, then 125mg PO q12h x7 days, then 125 PO qd x 7 days, then 125mg PO q2-3 days x2-8 weeks (5) Dyslipidemia: - cont atorvastatin 40mg PO daily (6) Type 2 diabetes mellitus: - on metformin as outpatient. - a1c 5.4 (7) BPH (benign prostatic hyperplasia): - cont home meds (8) Hypertension: - BP at goal. - cont home meds (9) Hypomagnesemia: - resolved (10) Possible cellulitis: - Consider antibiotic therapy if felt to be necessary. (11) DM2 - insulin sliding scale - hold metformin; A1C 5.4 (12) hypokalemia - 3.1 this morning, repleting, recheck tomorrow Admission and Anticipated Discharge Date Admission Date: May 02, 2021 Supervising Physician Co-Signing Physician Notes I personally examined the patient and verified all shankar points of history and exam, discussed case, and agree with decision making with Dr Simpson. Generally feeling better. Is somewhat weak. Understands the need for rehab, would like to be able to rehab at home if possiblewe discussed therapy versus a safe environment, and sometimes the need to go to rehab is because of needing a safe environment in between periods of therapy. Patient expressed understanding, will continue to discuss with him and his as he progresses. Vitals noted, in general he is awake and alert pleasant no distress. HEENT normocephalic atraumatic mucous membranes moist. Lungs are clear but diminished throughout. Faint basilar rales, otherwise seems to have better air entry than before. Abdomen soft. HFpEF -Continue Lasix -Follow clinically and labs -Diuril added C. difficile colitis -Appears recurrence -Vancomycin at this time -Prolonged course likely Weakness -PT OT eval and treat, will need to continue to discuss with patient and in regards to home versus rehab as he progresses. Otherwise as above. Subjective Feeling improved today. Still no diarrhea. Says leg swelling has gone down. No complaints or changes otherwise. Denies chest pain, SOB, fever. Review of Systems Review of Systems: All systems reviewed & are unremarkable except as noted in HPI & below Physical Exam Physical Exam: Constitutional: WD/WN, vitals as above Neck: trachea midline, no thyromegaly Respiratory: normal respiratory effort at rest, using accessory muscles during deep breathing, mild rales heard in lower lungs but improving Cardiovascular: Rate/Rhythm: RRR, + JVD Gastrointestinal (Abdomen): normal bowel sounds, soft, nontender, no hepatosplenomegaly Musculoskeletal: no cyanosis or clubbing, extremities motor strength 5/5 Skin: no rashes, warm and dry (except for redness around bilateral lower extremity) Neurologic: PERRL, EOMI, accommodation normal, no face palsy, no dysarthria Psychiatric: Orientation: alert Lymphatic: no cervical or axillary lymphadenopathy. Venous changes noted in bilateral lower extremity, minimally TTP and less swelling bilaterally compared to the last couple of days. Results & Data Results & Data ([facility]) Vital Signs (Past 12 Hours) Vital Signs Temp Pulse Pulse Pulse Resp BP BP 05/05/21 11:49 36.7 C 67 22 133/73 05/05/21 10:37 36.6 C 80 20 116/50 L 05/05/21 10:05 72 05/05/21 08:53 74 05/05/21 08:24 36.5 C 75 16 114/62 05/05/21 07:55 69 15 116/52 L 05/05/21 07:50 73 15 115/53 L 05/05/21 07:45 70 15 112/51 L 05/05/21 07:06 72 18 123/65 05/05/21 03:49 36.6 C 74 18 114/52 L Pulse Ox 05/05/21 11:49 97 05/05/21 10:37 95 05/05/21 10:05 05/05/21 08:53 05/05/21 08:24 97 05/05/21 07:55 93 05/05/21 07:50 93 05/05/21 07:45 93 05/05/21 07:06 98 05/05/21 03:49 97 Resident Activity Tracking Resident Involvement: Resident Care Provided Care Provided: Adult Hospital Medicine
--- NOTE | 2021-05-05 13:57 | XCELERA ---
[id number]
--- NOTE | 2021-05-05 17:16 | Billing Data ---
Date of Service May 05, 2021 Coding Level of Care Code 94559 Subseq Hosp Care Lvl 3
[2021-05-05] MEDS: TAMSULOSIN HCL 0.4 MG CAP PO SCH (20:58)
[2021-05-06] MEDS: VANCOMYCIN HCL 250 MG/5 ML SOLN PO SCH ×3 (06:10→17:38)
[2021-05-06] MEDS: LEVOTHYROXINE SODIUM 75 MCG TABLET PO SCH (06:10)
[2021-05-06] MEDS: RASPBERRY SYRUP 5 ML UDP PO SCH ×3 (06:10→17:36)
--- NOTE | 2021-05-06 07:08 | Hospitalist Progress Note ---
Date of Service May 06, 2021 Assessment & Plan (1) Acute heart failure with preserved ejection fraction: Plan: (1) Acute heart failure with preserved ejection fraction: -placed on IV lasix 40 mg BID --> patient remained hypervolemic, changed to 80mg BID, continue lasix -Monitor renal function and electrolytes closely. --> BUN Creatinine WNL -Strict I&Os and daily weights. Continue heart healthy DM2 diet. -Cardio consult --> "Still remains hypervolemic but improved since presentation. Unfortunately, I&Os are not accurate as he is unable to collect all of his urine. His weight initially trended downward until today. Continue current diuretic for now but bicarb is now elevated in laboratory data suggesting possible contraction alkalosis. Repeat basic metabolic panel now. May need to consider SCDs although mind. Monitor potassium closely. He has received supplementation as per primary service but may require more, especially since he has been having diarrhea until today. Low-sodium diet, less than 2000 mg daily. Strict I&Os and daily weights. Heart failure program referral. Echo ordered." -echo 05/05/21: EF 55-60%, mild concentric LVH, mild to moderate mitral regurge, moderate tricuspid regurge, nosignificant changes from echo 02/21/21 -Physical exam showing signs of improvement. Less leg swelling and tenderness, Minimal rales. (2) Persistent atrial fibrillation: -cont anticoagulation and rate control with amiodarone, eliquis, aspirin -A fib may be adding to CHF and hindering diuresis treatment. -Cardioverted 05/05/21 to normal sinus rhythm (3) S/P CABG (coronary artery bypass graft): - No angina pectoris. - Continue metoprolol succinate 12.5mg BID - Continue Atorvastatin 40 mg daily. - Cardio recommends cardiac rehab following discharge. (4) C. difficile diarrhea: - c. diff toxin and gene were positive. Hx. recurrent c. diff - diarrhea resolved currently loose stool, cont IV vancomycin -when discharged, recurrent c. diff total dosing: vancomycin 125mg PO q6h x10-14 days, then 125mg PO q12h x7 days, then 125 PO qd x 7 days, then 125mg PO q2-3 days x2-8 weeks (5) Dyslipidemia: - cont atorvastatin 40mg PO daily (6) Type 2 diabetes mellitus: -currently on novolog - on metformin as outpatient. - a1c 5.4 (7) BPH (benign prostatic hyperplasia): - cont tamsulosin (8) Hypertension: - BP at goal. - cont metoprolol succinate (9) Hypomagnesemia: - resolved (10) Possible cellulitis: - Consider antibiotic therapy if felt to be necessary. (11) Hypokalemia - 3.2 this morning, repleting with oral KCl, recheck tomorrow (12) Elevated Bicarbonate - bicarb 44 - possibly due to OHS, patient has never tried CPAP before - started on acetezolamide 250mg BID (13) Hypothyroidism - cont synthroid (14) GERD - cont protonix (15) cont seroquel 25mg daily -started in [place] 03/30/21 FENa: heart healthy DM2 diet Code Status: full DVT PPX: winter PT/OT: ordered, seen by PT/OT, recommend inpt rehab Case Management: [facility], bed available Saturday Dispo: Nafisa Funes Do PGY 1, [facility] Admission and Anticipated Discharge Date Admission Date: May 02, 2021 Supervising Physician Co-Signing Physician Notes I personally examined the patient and verified all shankar points of history and exam, discussed case, and agree with decision making with Dr Funes Breathing is better. Otherwise doing better overall. Revisited when was presentshe notes she would not be able to take care of him in his current stateagrees wholeheartedly with inpatient subacute rehab. Discussed potential for sleep apneashe notes that he had a couple of sleep studies but they were always inconclusive because he was not really able to rest. Vitals noted, in general he is awake and alert pleasant no distress. HEENT normocephalic atraumatic mucous membranes moist. Lungs are clear but diminished throughout. Faint basilar rales, otherwise seems to have better air entry than before. Abdomen soft. HFpEF -Continue Lasix -Follow clinically and labs -doing better now C. difficile colitis -Appears recurrence -Vancomycin at this time -Prolonged course likely -----We did discuss possibly switching over to fidaxomicin, but discussed that frequently cost is a problem with thispatient and expressed good understanding. Metabolic alkalosis -Seems to a degree to be a contraction alkalosis, but also this seems disproportionate, particularly given that his BUN and creatinine are not rising. Start acetazolamide for now, so that we can continue diuresis without a significant worsening of the metabolic alkalosis, but I also suspect there is a degree of an underlying respiratory acidosismost likely sleep apnea. As he gets closer to discharge we will check an overnight pulse ox and an a.m. blood gas, if that is not telling enough, would set up for sleep study as an outpatient in the near future. Weakness -PT OT eval and treat, will need inpatient subacute rehab. Otherwise as above. Subjective Patient seen seated in chair, calm, pleasant and cooperative. Patient is hard of hearing and is currently missing his hearing aids. He states he is feeling pretty good today, appetite improved swelling gone down compared on on admission, stool has improved from liquid to loose stool. On telemetry patient sinus rate and rhythm 70's, did drop to 40's last night. Attending has spoken with patient and regarding need for PT, patient agrees that PT is necessary. Care management has contacted [facility], they have a bed available Saturday. Review of Systems Review of Systems: Positive loose stool, leg swelling Negative fever chills Negative headache dizziness Negative chest pain palpitations SOB Negative nausea vomitting diarrhea constipation Negative numbness tingling rash Physical Exam Physical Exam: General: Well appearing, age appropriate, obese Heart: RRR, +S1 S2, no murmurs/gallops/rubs Lungs: cta b/l, no wheezes/rales/rhonchi Abd: mild distention, nontender, +BS Extremities: +3 pitting edema b/l up to knee, mild erythema and scabs on legs b/l, no rashes Results & Data Results & Data ([facility]) Vital Signs (Past 12 Hours) Vital Signs Temp Pulse Resp BP Pulse Ox 05/06/21 04:13 36.6 C 73 18 115/47 L 96 05/05/21 23:54 36.5 C 73 18 111/51 L 97 05/05/21 19:19 37 C 77 18 129/52 L 97 Laboratory Results 05/06/21 05/06/21 05/06/21 Range/Units 08:17 08:17 07:37 WBC 8.92 (4.8-10.8) K/uL RBC 2.82 L (4.7-6.1) M/uL Hgb 9.1 L (14.0-18.0) g/dL Hct 30.4 L (42-52) % MCV 107.8 H (80-100) fL MCH 32.3 (25-34) pg MCHC 29.9 L (32-36) g/dL RDW Std Deviation 61.3 H (36.4-46.3) fL RDW Coeff of Savi 15.6 H (11.5-14.5) % Plt Count 228 (130-400) K/uL MPV 8.7 (7.4-10.4) fL Sodium 137 (136-145) mmol/L Potassium 3.2 L (3.5-5.1) mmol/L Chloride 91 L (98-107) mmol/L Carbon Dioxide 44 H* (21-32) mmol/L Anion Gap 2.0 L (3-11) BUN 17 (7-18) mg/dl Creatinine 0.97 (0.6-1.4) mg/dl Est Cr Clr Drug Dosing 58.9 ml/min Est GFR ( Amer) 83.9 ml/min Est GFR (Non-Af Amer) 72.4 ml/min BUN/Creatinine Ratio 17.6 (10-20) Glucose 176 H (70-99) mg/dl POC Glucose 124 H (70-99) mg/dl Calcium 10.3 H (8.5-10.1) mg/dl 05/05/21 05/05/21 05/05/21 Range/Units 20:37 16:24 11:46 WBC (4.8-10.8) K/uL RBC (4.7-6.1) M/uL Hgb (14.0-18.0) g/dL Hct (42-52) % MCV (80-100) fL MCH (25-34) pg MCHC (32-36) g/dL RDW Std Deviation (36.4-46.3) fL RDW Coeff of Savi (11.5-14.5) % Plt Count (130-400) K/uL MPV (7.4-10.4) fL Sodium (136-145) mmol/L Potassium (3.5-5.1) mmol/L Chloride (98-107) mmol/L Carbon Dioxide (21-32) mmol/L Anion Gap (3-11) BUN (7-18) mg/dl Creatinine (0.6-1.4) mg/dl Est Cr Clr Drug Dosing ml/min Est GFR ( Amer) ml/min Est GFR (Non-Af Amer) ml/min BUN/Creatinine Ratio (10-20) Glucose (70-99) mg/dl POC Glucose 225 H 124 H 207 H (70-99) mg/dl Calcium (8.5-10.1) mg/dl 05/05/21 Range/Units 10:09 WBC (4.8-10.8) K/uL RBC (4.7-6.1) M/uL Hgb (14.0-18.0) g/dL Hct (42-52) % MCV (80-100) fL MCH (25-34) pg MCHC (32-36) g/dL RDW Std Deviation (36.4-46.3) fL RDW Coeff of Savi (11.5-14.5) % Plt Count (130-400) K/uL MPV (7.4-10.4) fL Sodium (136-145) mmol/L Potassium 3.1 L D (3.5-5.1) mmol/L Chloride (98-107) mmol/L Carbon Dioxide (21-32) mmol/L Anion Gap (3-11) BUN (7-18) mg/dl Creatinine (0.6-1.4) mg/dl Est Cr Clr Drug Dosing ml/min Est GFR ( Amer) ml/min Est GFR (Non-Af Amer) ml/min BUN/Creatinine Ratio (10-20) Glucose (70-99) mg/dl POC Glucose (70-99) mg/dl Calcium (8.5-10.1) mg/dl Diagnostic Findings Chest X-Ray 05/02/21 14:39 SINGLE VIEW CHEST CLINICAL HISTORY: Dysrhythmia. Leg swelling. FINDINGS: An AP, portable, upright chest radiograph is compared to study dated 01/09/2021. The examination is degraded by portable technique and apical lordotic positioning. The patient is status post midline sternotomy. The heart is enlarged. The pulmonary vasculature is noncongested. There is bibasilar scarring/atelectasis. No airspace consolidation or large pleural effusion is identified. No pneumothorax is seen. The skeletal structures are osteopenic. The bony thorax is grossly intact. IMPRESSION: Cardiomegaly with no acute cardiopulmonary abnormality. ACT 112: Negative or not required by law. Electronically signed by: Angelo Billingsley M.D. 05/02/2021 5:09 PM Medications Administered Current Inpatient Medications Acetazolamide (Acetazolamide 250 Mg Tab) 250 mg PO BID17 [facility] Stop: 06/05/21 09:44 Last Admin: 05/06/21 10:53 Dose: 250 mg Documented by: Amiodarone HCl (Amiodarone 200 Mg Tab) 200 mg PO DAILY [facility] Stop: 06/02/21 08:59 Last Admin: 05/06/21 08:28 Dose: 200 mg Documented by: Apixaban (Apixaban 5 Mg Tablet) 5 mg PO BID [facility] Stop: 06/01/21 20:59 Last Admin: 05/06/21 08:28 Dose: 5 mg Documented by: Aspirin (Aspirin 81 Mg Ectab) 81 mg PO DAILY [facility] Stop: 06/02/21 08:59 Last Admin: 05/06/21 08:29 Dose: 81 mg Documented by: Atorvastatin Calcium (Atorvastatin 40 Mg Tab) 40 mg PO QAM [facility] Stop: 06/02/21 08:59 Last Admin: 05/06/21 08:29 Dose: 40 mg Documented by: Cyanocobalamin (Cyanocobalamin (Vitamin B-12) 2,500 Mcg Tab.Subl) 5,000 mcg SL DAILY [facility] Stop: 06/02/21 08:59 Last Admin: 05/06/21 08:30 Dose: 5,000 mcg Documented by: Dextrose (Dextrose 50% 50 Ml Syringe) 25 - 50 ml IV UD PRN; Protocol PRN Reason: Hypoglycemia Protocol Stop: 06/02/21 01:14 Ferrous Sulfate (Ferrous Sulfate 325 Mg Tab) 325 mg PO TID [facility] Stop: 06/01/21 20:59 Last Admin: 05/06/21 08:30 Dose: 325 mg Documented by: Glucagon (Glucagon For Inj 1 Mg Vial) 1 mg SQ UD PRN; Protocol PRN Reason: Hypoglycemia Protocol Stop: 06/02/21 01:14 Glucose (Glucose 40% Gel 15 Gm Tube) 15 - 30 gm PO UD PRN; Protocol PRN Reason: Hypoglycemia Protocol Stop: 06/02/21 01:14 Glucose (Glucose 10 Tabs/Tube) 4 - 8 tabs PO UD PRN; Protocol PRN Reason: Hypoglycemia Protocol Stop: 06/02/21 01:14 Furosemide 80 mg/ Syringe 8 mls @ 4 mls/min IV BID17 [facility] Stop: 06/02/21 16:59 Last Admin: 05/06/21 08:31 Dose: 4 mls/min Documented by: Insulin Aspart (Insulin Aspart 100 Units/Ml 3 Ml Pen) 0 units SC ACHS [facility]; Protocol Stop: 06/02/21 01:59 Last Admin: 05/06/21 08:27 Dose: Not Given Documented by: Levothyroxine Sodium (Levothyroxine Sodium 75 Mcg Tablet) 75 mcg PO DAILYBB [facility] Stop: 06/02/21 06:29 Last Admin: 05/06/21 06:10 Dose: 75 mcg Documented by: Melatonin (Melatonin 3 Mg Tab) 9 mg PO HS PRN PRN Reason: Sleep Stop: 06/01/21 20:43 Metoprolol Succinate (Metoprolol Succ 25mg Ext Rel Tab) 12.5 mg PO BID [facility] Stop: 06/01/21 20:59 Last Admin: 05/06/21 08:31 Dose: 12.5 mg Documented by: Miscellaneous (Carbohydrates For Hypoglycemia ) 15 - 30 gm PO UD PRN PRN Reason: Hypoglycemia Treatment Stop: 06/02/21 01:14 Multivitamins (Multivitamin Tab) 1 tab PO DAILY [facility] Stop: 06/02/21 08:59 Last Admin: 05/06/21 08:32 Dose: 1 tab Documented by: Pantoprazole Sodium (Pantoprazole 40 Mg Tab) 40 mg PO DAILY [facility] Stop: 06/02/21 08:59 Last Admin: 05/06/21 08:32 Dose: 40 mg Documented by: Potassium Chloride (Potassium Chloride Crtab 20 Meq Tabcr) 20 meq PO DAILY [facility] Stop: 06/02/21 08:59 Last Admin: 05/06/21 08:33 Dose: 20 meq Documented by: Quetiapine Fumarate (Quetiapine Fumarate 25 Mg Tablet) 25 mg PO DAILY [facility] Stop: 06/02/21 08:59 Last Admin: 05/06/21 08:33 Dose: 25 mg Documented by: Raspberry (Raspberry Syrup 5 Ml Udp) 5 ml PO Q6 [facility] Stop: 05/17/21 00:00 Last Admin: 05/06/21 06:10 Dose: 5 ml Documented by: Saccharomyces Boulardii (Saccharomyces Boulardii 250 Mg Cap) 250 mg PO DAILY [facility] Stop: 06/02/21 08:59 Last Admin: 05/06/21 08:33 Dose: 250 mg Documented by: Tamsulosin HCl (Tamsulosin Hcl 0.4 Mg Cap) 0.8 mg PO HS [facility] Stop: 06/01/21 20:59 Last Admin: 05/05/21 20:58 Dose: 0.8 mg Documented by: Vancomycin HCl (Vancomycin Hcl 250 Mg/5 Ml Soln) 250 mg PO Q6 [facility] Stop: 05/13/21 00:00 Last Admin: 05/06/21 06:10 Dose: 250 mg Documented by: Vitamin D (Cholecalciferol 1,000 Units 25 Mcg Tab) 1,000 units PO DAILY [facility] Stop: 06/02/21 08:59 Last Admin: 05/06/21 08:29 Dose: 1,000 units Documented by: Resident Activity Tracking Resident Involvement: Resident Care Provided Care Provided: Adult Hospital Medicine
[2021-05-06] MEDS: INSULIN ASPART 100 UNITS/ML 3 ML PEN SC SCH ×4 (08:27→21:04)
[2021-05-06] MEDS: APIXABAN 5 MG TABLET PO SCH ×2 (08:28→20:16)
[2021-05-06] MEDS: AMIODARONE 200 MG TAB PO SCH (08:28)
[2021-05-06] MEDS: ASPIRIN 81 MG ECTAB PO SCH (08:29)
[2021-05-06] MEDS: CHOLECALCIFEROL 1,000 UNITS 25 MCG TAB PO SCH (08:29)
[2021-05-06] MEDS: ATORVASTATIN 40 MG TAB PO SCH (08:29)
[2021-05-06] MEDS: FERROUS SULFATE 325 MG TAB PO SCH ×3 (08:30→20:15)
[2021-05-06] MEDS: CYANOCOBALAMIN (VITAMIN B-12) 2,500 MCG TAB.SUBL SL SCH (08:30)
[2021-05-06] MEDS: FUROSEMIDE 80 MG in SYRINGE 0 ML IV SCH ×2 (08:31→17:35)
[2021-05-06] MEDS: METOPROLOL SUCC 25MG EXT REL TAB PO SCH ×2 (08:31→20:15)
[2021-05-06] MEDS: MULTIVITAMIN TAB PO SCH (08:32)
[2021-05-06] MEDS: PANTOprazole 40 MG TAB PO SCH (08:32)
[2021-05-06] MEDS: QUEtiapine FUMARATE 25 MG TABLET PO SCH (08:33)
[2021-05-06] MEDS: POTASSIUM CHLORIDE CRTAB 20 MEQ TABCR PO SCH (08:33)
[2021-05-06] MEDS: SACCHAROMYCES BOULARDII 250 MG CAP PO SCH (08:33)
[2021-05-06 09:04] LABS: BUN Creatinine Ratio 17.6 (10-20); Calcium 10.3 mg/dl (8.5-10.1); Creatinine Clr Calc Pharmacy 58.9 ml/min; Est GFR (African American) 83.9 ml/min; Est GFR (Non-African American) 72.4 ml/min; Potassium 3.2 mmol/L (3.5-5.1)
[2021-05-06] MEDS ORDERED: POTASSIUM CHLORIDE CRTAB 20 MEQ TABCR PO STA (09:34)
[2021-05-06 09:35] LABS: Hematocrit (blood only) 30.4 % (42-52); Hemoglobin 9.1 g/dL (14.0-18.0); Mean Corpuscular Hemoglobin 32.3 pg (25-34); Mean Corpuscular Hgb Conc 29.9 g/dL (32-36); Mean Corpuscular Volume 107.8 fL (80-100); Mean Platelet Volume 8.7 fL (7.4-10.4); Platelet Count 228 K/uL (130-400); RDW Coefficient of Variation 15.6 % (11.5-14.5); RDW Standard Deviation 61.3 fL (36.4-46.3); Red Blood Count 2.82 M/uL (4.7-6.1); White Blood Count 8.92 K/uL (4.8-10.8)
[2021-05-06] MEDS: acetaZOLAMIDE 250 MG TAB PO SCH ×2 (10:53→17:35)
--- NOTE | 2021-05-06 18:42 | Billing Data ---
Date of Service May 06, 2021 Coding Level of Care Code 93590 Subseq Hosp Care Lvl 3
[2021-05-06] MEDS: TAMSULOSIN HCL 0.4 MG CAP PO SCH (20:16)
[2021-05-07] MEDS: RASPBERRY SYRUP 5 ML UDP PO SCH ×5 (00:07→23:55)
[2021-05-07] MEDS: VANCOMYCIN HCL 250 MG/5 ML SOLN PO SCH ×5 (00:08→23:55)
[2021-05-07] MEDS: LEVOTHYROXINE SODIUM 75 MCG TABLET PO SCH (06:19)
--- NOTE | 2021-05-07 06:46 | Hospitalist Progress Note ---
Date of Service May 07, 2021 Assessment & Plan (1) Acute heart failure with preserved ejection fraction: Plan: (1) Acute heart failure with preserved ejection fraction: -started on IV lasix 40 mg BID --> patient remained hypervolemic, changed to 80mg BID, continue lasix -Strict I&Os and daily weights. Continue heart healthy DM2 diet. -Cardio consult --> "Still remains hypervolemic but improved since presentation. Unfortunately, I&Os are not accurate as he is unable to collect all of his urine. His weight initially trended downward until today. Continue current diuretic for now but bicarb is now elevated in laboratory data suggesting possible contraction alkalosis. Repeat basic metabolic panel now. May need to consider SCDs although mind. Monitor potassium closely. He has received supplementation as per primary service but may require more, especially since he has been having diarrhea until today. Low-sodium diet, less than 2000 mg daily. Strict I&Os and daily weights. Heart failure program referral. Echo ordered." -echo 05/05/21: EF 55-60%, mild concentric LVH, mild to moderate mitral regurge, moderate tricuspid regurge, nosignificant changes from echo 02/21/21 -Physical exam showing signs of improvement. Less leg swelling and tenderness, M inimal rales. -Monitor renal function and electrolytes closely. --> BUN Creatinine WNL (2) Elevated Bicarbonate - bicarb 38 on admission -->45 (05/07) - ordered ABG = pH 7.39 pCO2 71 - discussed etiology possibly largely due to chronic respiratory acidosis with compensation (may be secondary to sleep apnea or chronic respiratory failure due to weakness), remaining alkalosis may be due to contraction alkalosis from diuretics - ordered PFT to evaluate for possible restrictive lung disease - discussed need for BIPAP, given acidosis, while he does not clinically appear to need it when awake/alert, will utilize HS - started on acetezolamide 250mg BID - need blood gas repeated 48hr b/f discharge along w overnight pulse ox so as to hopefully qualify for non-invasive ventilation coverage after discharge (if does not meet criteria, then would need sleep study facilitated BRIANNA) (3) Persistent atrial fibrillation: -cont anticoagulation and rate control with amiodarone, eliquis, aspirin -A fib may be adding to CHF and hindering diuresis treatment. -Cardioverted 05/05/21 to normal sinus rhythm (4) S/P CABG (coronary artery bypass graft): - No angina pectoris. - Continue metoprolol succinate 12.5mg BID - Continue Atorvastatin 40 mg daily. - Cardio recommends cardiac rehab following discharge. (5) C. difficile diarrhea: - c. diff toxin and gene were positive. Hx. recurrent c. diff - diarrhea resolved currently loose stool, cont IV vancomycin -when discharged, recurrent c. diff total dosing: vancomycin 125mg PO q6h x10-14 days, then 125mg PO q12h x7 days, then 125 PO qd x 7 days, then 125mg PO q2-3 days x2-8 weeks (6) Dyslipidemia: - cont atorvastatin 40mg PO daily (7) Type 2 diabetes mellitus: -currently on novolog - on metformin as outpatient. - a1c 5.4 (8) BPH (benign prostatic hyperplasia): - cont tamsulosin (9) Hypertension: - BP at goal. - cont metoprolol succinate (10) Hypomagnesemia: - resolved (11) Possible cellulitis: - Consider antibiotic therapy if felt to be necessary. (12) Hypokalemia - 3.2 this morning, repleting with oral KCl, recheck tomorrow (13) Hypothyroidism - cont synthroid (14) GERD - cont protonix (15) cont seroquel 25mg daily -started in [place] 03/30/21 (16) New Onset Right Ankle pain - unknown history per patient, tender to palpation on medial and lateral malleolus, swelling secondary to venous stasis of leg, no increased erythema or warmth, pain on walking - discussed need for imaging, patient technically meets criteria per [place] rules but will hold off for now - discussed possible gout secondary to diuretic usage, will recheck in afternoon. FENa: heart healthy DM2 diet Code Status: full DVT PPX: eliquis PT/OT: ordered, seen by PT/OT, recommend inpt rehab Case Management: [facility] Dispo: Nafisa Funes Do PGY 1, FCM Admission and Anticipated Discharge Date Admission Date: May 02, 2021 Supervising Physician Co-Signing Physician Notes I personally examined the patient and verified all shankar points of history and exam, discussed case, and agree with decision making with Dr Funes Breathing seems to be feeling okay to may be slightly better. His main complaint today is left ankle pain. He notes that he was a little bit confuse d/delirious overnight and wonders if he twisted it then. Vitals noted, in general he is awake and alert pleasant no distress. HEENT normocephalic atraumatic mucous membranes moist. Lungs fairly diminished throughout but overall clear to auscultation no rales rhonchi or wheeze with good effort. No accessory muscle use. Bilateral lower extremities with about 2-3+ edema. He has tenderness at his left ankle. There is no erythema no open lesions no notable fluctuance, it is difficult to feel if there is truly joint swelling but I cannot really feel a joint effusion, but he is tender at the an kle, somewhat tender at the lateral malleolus, and somewhat tender at the fifth metatarsal. HFpEF -Seems to be showing ongoing improvement with this. Continue Lasix and acetazolamide. Continue to follow clinically and follow his labs. I suspect we are getting close to as dry as we will be on to get him, particularly given that he is only on 2 L (which is his recent baseline), and while not significantly elevated, his creatinine is starting to rise somewhat slowly. Respiratory acidosis -suspect largely from untreated sleep apnea, probable OHS. Compensated with his metabolic alkalosis, definitely suggesting has been going on for a while. I do wonder if he has a degree of respiratory muscle weakness from everything he has been through that may be making him hypoventilate further. PFTs to help clarify this. BiPAP at bedtime, given that he has a rather significant acidosis going on (given that he is awake and alert during the day and showing no respiratory distress, we can try to hold off on treating during daylight hours given that he is very averse to the idea of positive pressure type therapy) as he gets closer to discharge, pulse ox overnight as well as a.m. blood gas to try to qualify him for noninvasive ventilation therapy. Of notewe would need to do this off of BiPAP therapy. If he does not meet criteria, then would need a sleep study BRIANNA. C. difficile colitis -Appears recurrence -Vancomycin at this time -Prolonged course likely -----We did discuss possibly switching over to fidaxomicin, but discussed that frequently cost is a problem with thispatient and expressed good understanding. Ankle painnonspecific, with all of his fluid shifting clinically I wonder if this might evolve into a gout flare, but nothing compelling is suggested at this time. Nothing appears infectious. Follow clinically/serial exams, low threshold for imaging if it does not improve quickly. Leukocytosisnothing overtly appearing new in an infectious manner. Follow cl inically/serial exams. With a.m. labs, will also add CRP and procalcitonin. Weakness -PT OT eval and treat, will need inpatient subacute rehab. (Patient and targeting [facility]) Otherwise as above. Subjective Patient seen seated in chair next to bedside, cooperate with slight grimace, states he did not sleep well had an episode of confusion last night, he thought it was daytime. When seen in the morning, patient thought it was already evening. Patient oriented to year and place. He is concerned why he is getting confused. He states he is voiding normally but has not passed any stool yet as of today, no change in leg swelling, he is complaining of new onset right ankle pain. Patient states the ankle pain is worse when he tries to walk, also on palpation. He does not remember how he got the ankle pain. Per nurse patient had no falls last night, telemetry showed sinus rate/rhythm with occasional PVC, IVD, bigeminy. Patient plans to go to inpt rehab after hospitalization, per Case Management bed may not available until later in week. Patient hard of hearing at baseline. Review of Systems Review of Systems: Positive leg swelling Negative fever chills Negative headache dizziness Negative chest pain palpitations SOB Negative nausea vomitting diarrhea constipation Negative numbness tingling Physical Exam Physical Exam: General: Well appearing, age appropriate, obese Heart: RRR, +S1 S2, no murmurs/gallops/rubs Lungs: slight wheeze b/l resolved on second exam 3hr lateri Abd: mild distension, nontender, +BS Extremities: +3 pitting edema b/l up to knee, mild erythema on both legs up to knee, scabs noted on right leg. Right ankle tender on palpation around medial and lateral malleolus, no increased erythema warmth Results & Data Results & Data ([facility]) Vital Signs (Past 12 Hours) Vital Signs Temp Pulse Resp BP Pulse Ox 05/07/21 03:38 36.7 C 72 20 122/68 95 05/06/21 23:38 36.8 C 73 20 118/68 92 05/06/21 19:44 37.2 C 78 20 132/55 L 96 Laboratory Results 05/07/21 05/07/21 05/07/21 Range/Units 12:30 11:31 11:21 WBC 14.84 H (4.8-10.8) K/uL RBC 2.70 L (4.7-6.1) M/uL Hgb 8.8 L (14.0-18.0) g/dL Hct 28.7 L (42-52) % MCV 106.3 H (80-100) fL MCH 32.6 (25-34) pg MCHC 30.7 L (32-36) g/dL RDW Std Deviation 62.0 H (36.4-46.3) fL RDW Coeff of Savi 15.9 H (11.5-14.5) % Plt Count 230 (130-400) K/uL MPV 8.5 (7.4-10.4) fL ABG pH 7.39 Cancelled ABG pCO2 71 H Cancelled ABG pO2 77 L Cancelled ABG HCO3 41 H Cancelled ABG O2 Saturation 95.1 H Cancelled ABG Base Excess 13.9 H Cancelled Sudhir Test Pos Cancelled Barometric Pressure 730.3 Cancelled Oxygen Given ROOM AIR Cancelled Sodium (136-145) mmol/L Potassium (3.5-5.1) mmol/L Chloride (98-107) mmol/L Carbon Dioxide (21-32) mmol/L Anion Gap (3-11) BUN (7-18) mg/dl Creatinine (0.6-1.4) mg/dl Est Cr Clr Drug Dosing ml/min Est GFR ( Amer) ml/min Est GFR (Non-Af Amer) ml/min BUN/Creatinine Ratio (10-20) Glucose (70-99) mg/dl POC Glucose (70-99) mg/dl Calcium (8.5-10.1) mg/dl 05/07/21 05/07/21 05/07/21 Range/Units 11:19 11:18 11:17 WBC (4.8-10.8) K/uL RBC (4.7-6.1) M/uL Hgb (14.0-18.0) g/dL Hct (42-52) % MCV (80-100) fL MCH (25-34) pg MCHC (32-36) g/dL RDW Std Deviation (36.4-46.3) fL RDW Coeff of Savi (11.5-14.5) % Plt Count (130-400) K/uL MPV (7.4-10.4) fL ABG pH ABG pCO2 ABG pO2 ABG HCO3 ABG O2 Saturation ABG Base Excess Sudhir Test Barometric Pressure Oxygen Given Sodium (136-145) mmol/L Potassium (3.5-5.1) mmol/L Chloride (98-107) mmol/L Carbon Dioxide (21-32) mmol/L Anion Gap (3-11) BUN (7-18) mg/dl Creatinine (0.6-1.4) mg/dl Est Cr Clr Drug Dosing ml/min Est GFR ( Amer) ml/min Est GFR (Non-Af Amer) ml/min BUN/Creatinine Ratio (10-20) Glucose (70-99) mg/dl POC Glucose 254 H 263 H 353 H* (70-99) mg/dl Calcium (8.5-10.1) mg/dl 05/07/21 05/07/21 05/06/21 Range/Units 07:51 07:17 20:17 WBC (4.8-10.8) K/uL RBC (4.7-6.1) M/uL Hgb (14.0-18.0) g/dL Hct (42-52) % MCV (80-100) fL MCH (25-34) pg MCHC (32-36) g/dL RDW Std Deviation (36.4-46.3) fL RDW Coeff of Savi (11.5-14.5) % Plt Count (130-400) K/uL MPV (7.4-10.4) fL ABG pH ABG pCO2 ABG pO2 ABG HCO3 ABG O2 Saturation ABG Base Excess Sudhir Test Barometric Pressure Oxygen Given Sodium 137 (136-145) mmol/L Potassium 3.6 (3.5-5.1) mmol/L Chloride 93 L (98-107) mmol/L Carbon Dioxide 45 H* (21-32) mmol/L Anion Gap -1.0 L (3-11) BUN 18 (7-18) mg/dl Creatinine 1.03 (0.6-1.4) mg/dl Est Cr Clr Drug Dosing 55.2 ml/min Est GFR ( Amer) 78.0 ml/min Est GFR (Non-Af Amer) 67.3 ml/min BUN/Creatinine Ratio 17.6 (10-20) Glucose 132 H (70-99) mg/dl POC Glucose 140 H 170 H (70-99) mg/dl Calcium 10.5 H (8.5-10.1) mg/dl 05/06/21 Range/Units 16:31 WBC (4.8-10.8) K/uL RBC (4.7-6.1) M/uL Hgb (14.0-18.0) g/dL Hct (42-52) % MCV (80-100) fL MCH (25-34) pg MCHC (32-36) g/dL RDW Std Deviation (36.4-46.3) fL RDW Coeff of Savi (11.5-14.5) % Plt Count (130-400) K/uL MPV (7.4-10.4) fL ABG pH ABG pCO2 ABG pO2 ABG HCO3 ABG O2 Saturation ABG Base Excess Sudhir Test Barometric Pressure Oxygen Given Sodium (136-145) mmol/L Potassium (3.5-5.1) mmol/L Chloride (98-107) mmol/L Carbon Dioxide (21-32) mmol/L Anion Gap (3-11) BUN (7-18) mg/dl Creatinine (0.6-1.4) mg/dl Est Cr Clr Drug Dosing ml/min Est GFR ( Amer) ml/min Est GFR (Non-Af Amer) ml/min BUN/Creatinine Ratio (10-20) Glucose (70-99) mg/dl POC Glucose 145 H (70-99) mg/dl Calcium (8.5-10.1) mg/dl Medications Administered Current Inpatient Medications Acetazolamide (Acetazolamide 250 Mg Tab) 250 mg PO BID17 [facility] Stop: 06/05/21 09:44 Last Admin: 05/07/21 08:00 Dose: 250 mg Documented by: Amiodarone HCl (Amiodarone 200 Mg Tab) 200 mg PO DAILY [facility] Stop: 06/02/21 08:59 Last Admin: 05/07/21 08:01 Dose: 200 mg Documented by: Apixaban (Apixaban 5 Mg Tablet) 5 mg PO BID [facility] Stop: 06/01/21 20:59 Last Admin: 05/07/21 08:01 Dose: 5 mg Documented by: Aspirin (Aspirin 81 Mg Ectab) 81 mg PO DAILY [facility] Stop: 06/02/21 08:59 Last Admin: 05/07/21 08:01 Dose: 81 mg Documented by: Atorvastatin Calcium (Atorvastatin 40 Mg Tab) 40 mg PO QAM [facility] Stop: 06/02/21 08:59 Last Admin: 05/07/21 08:01 Dose: 40 mg Documented by: Cyanocobalamin (Cyanocobalamin (Vitamin B-12) 2,500 Mcg Tab.Subl) 5,000 mcg SL DAILY [facility] Stop: 06/02/21 08:59 Last Admin: 05/07/21 08:02 Dose: 5,000 mcg Documented by: Dextrose (Dextrose 50% 50 Ml Syringe) 25 - 50 ml IV UD PRN; Protocol PRN Reason: Hypoglycemia Protocol Stop: 06/02/21 01:14 Ferrous Sulfate (Ferrous Sulfate 325 Mg Tab) 325 mg PO TID [facility] Stop: 06/01/21 20:59 Last Admin: 05/07/21 12:42 Dose: 325 mg Documented by: Glucagon (Glucagon For Inj 1 Mg Vial) 1 mg SQ UD PRN; Protocol PRN Reason: Hypoglycemia Protocol Stop: 06/02/21 01:14 Glucose (Glucose 40% Gel 15 Gm Tube) 15 - 30 gm PO UD PRN; Protocol PRN Reason: Hypoglycemia Protocol Stop: 06/02/21 01:14 Glucose (Glucose 10 Tabs/Tube) 4 - 8 tabs PO UD PRN; Protocol PRN Reason: Hypoglycemia Protocol Stop: 06/02/21 01:14 Furosemide 80 mg/ Syringe 8 mls @ 4 mls/min IV BID17 [facility] Stop: 06/02/21 16:59 Last Admin: 05/07/21 08:07 Dose: 4 mls/min Documented by: Insulin Aspart (Insulin Aspart 100 Units/Ml 3 Ml Pen) 0 units SC [facility]; Protocol Stop: 06/02/21 01:59 Last Admin: 05/07/21 11:39 Dose: 4 units Documented by: Levothyroxine Sodium (Levothyroxine Sodium 75 Mcg Tablet) 75 mcg PO DAILYBB [facility] Stop: 06/02/21 06:29 Last Admin: 05/07/21 06:19 Dose: 75 mcg Documented by: Melatonin (Melatonin 3 Mg Tab) 9 mg PO HS PRN PRN Reason: Sleep Stop: 06/01/21 20:43 Metoprolol Succinate (Metoprolol Succ 25mg Ext Rel Tab) 12.5 mg PO BID [facility] Stop: 06/01/21 20:59 Last Admin: 05/07/21 08:03 Dose: 12.5 mg Documented by: Miscellaneous (Carbohydrates For Hypoglycemia ) 15 - 30 gm PO UD PRN PRN Reason: Hypoglycemia Treatment Stop: 06/02/21 01:14 Multivitamins (Multivitamin Tab) 1 tab PO DAILY [facility] Stop: 06/02/21 08:59 Last Admin: 05/07/21 08:03 Dose: 1 tab Documented by: Pantoprazole Sodium (Pantoprazole 40 Mg Tab) 40 mg PO DAILY [facility] Stop: 06/02/21 08:59 Last Admin: 05/07/21 08:03 Dose: 40 mg Documented by: Potassium Chloride (Potassium Chloride Crtab 20 Meq Tabcr) 20 meq PO DAILY [facility] Stop: 06/02/21 08:59 Last Admin: 05/07/21 08:04 Dose: 20 meq Documented by: Quetiapine Fumarate (Quetiapine Fumarate 25 Mg Tablet) 25 mg PO DAILY [facility] Stop: 06/02/21 08:59 Last Admin: 05/07/21 08:04 Dose: 25 mg Documented by: Raspberry (Raspberry Syrup 5 Ml Udp) 5 ml PO Q6 [facility] Stop: 05/17/21 00:00 Last Admin: 05/07/21 11:13 Dose: 5 ml Documented by: Saccharomyces Boulardii (Saccharomyces Boulardii 250 Mg Cap) 250 mg PO DAILY [facility] Stop: 06/02/21 08:59 Last Admin: 05/07/21 08:04 Dose: 250 mg Documented by: Tamsulosin HCl (Tamsulosin Hcl 0.4 Mg Cap) 0.8 mg PO HS [facility] Stop: 06/01/21 20:59 Last Admin: 05/06/21 20:16 Dose: 0.8 mg Documented by: Vancomycin HCl (Vancomycin Hcl 250 Mg/5 Ml Soln) 250 mg PO Q6 [facility] Stop: 05/13/21 00:00 Last Admin: 05/07/21 11:13 Dose: 250 mg Documented by: Vitamin D (Cholecalciferol 1,000 Units 25 Mcg Tab) 1,000 units PO DAILY [facility] Stop: 06/02/21 08:59 Last Admin: 05/07/21 08:02 Dose: 1,000 units Documented by: Resident Activity Tracking Resident Involvement: Resident Care Provided Care Provided: Adult Hospital Medicine
[2021-05-07] MEDS: acetaZOLAMIDE 250 MG TAB PO SCH ×2 (08:00→16:51)
[2021-05-07] MEDS: INSULIN ASPART 100 UNITS/ML 3 ML PEN SC SCH ×4 (08:00→20:21)
[2021-05-07] MEDS: APIXABAN 5 MG TABLET PO SCH ×2 (08:01→20:19)
[2021-05-07] MEDS: ATORVASTATIN 40 MG TAB PO SCH (08:01)
[2021-05-07] MEDS: ASPIRIN 81 MG ECTAB PO SCH (08:01)
[2021-05-07] MEDS: AMIODARONE 200 MG TAB PO SCH (08:01)
[2021-05-07] MEDS: CHOLECALCIFEROL 1,000 UNITS 25 MCG TAB PO SCH (08:02)
[2021-05-07] MEDS: CYANOCOBALAMIN (VITAMIN B-12) 2,500 MCG TAB.SUBL SL SCH (08:02)
[2021-05-07] MEDS: FERROUS SULFATE 325 MG TAB PO SCH ×3 (08:02→20:19)
[2021-05-07] MEDS: METOPROLOL SUCC 25MG EXT REL TAB PO SCH ×2 (08:03→20:20)
[2021-05-07] MEDS: MULTIVITAMIN TAB PO SCH (08:03)
[2021-05-07] MEDS: PANTOprazole 40 MG TAB PO SCH (08:03)
[2021-05-07] MEDS: POTASSIUM CHLORIDE CRTAB 20 MEQ TABCR PO SCH (08:04)
[2021-05-07] MEDS: QUEtiapine FUMARATE 25 MG TABLET PO SCH (08:04)
[2021-05-07] MEDS: SACCHAROMYCES BOULARDII 250 MG CAP PO SCH (08:04)
[2021-05-07 08:06] LABS: BUN Creatinine Ratio 17.6 (10-20); Calcium 10.5 mg/dl (8.5-10.1); Creatinine Clr Calc Pharmacy 55.2 ml/min; Est GFR (Non-African American) 67.3 ml/min; Potassium 3.6 mmol/L (3.5-5.1)
[2021-05-07] MEDS: FUROSEMIDE 80 MG in SYRINGE 0 ML IV SCH ×2 (08:07→16:50)
[2021-05-07 11:40] LABS: Hematocrit (blood only) 28.7 % (42-52); Hemoglobin 8.8 g/dL (14.0-18.0); Mean Corpuscular Hemoglobin 32.6 pg (25-34); Mean Corpuscular Hgb Conc 30.7 g/dL (32-36); Mean Corpuscular Volume 106.3 fL (80-100); Mean Platelet Volume 8.5 fL (7.4-10.4); Platelet Count 230 K/uL (130-400); RDW Coefficient of Variation 15.9 % (11.5-14.5); White Blood Count 14.84 K/uL (4.8-10.8)
[2021-05-07 12:43] LABS: Base Excess ABG 13.9 mEq/L (-9-1.8); HCO3 ABG 41 mmol/L (19-24); Oxygen Saturation ABG 95.1 % (90-95); PCO2 ABG 71 mmHg (35-46); PO2 ABG 77 mmHg (80-95); pH ABG 7.39 (7.35-7.45)
[2021-05-07 12:44] LABS: Allen Test Pos (Pos)
[2021-05-07] MEDS ORDERED: ACETAMINOPHEN 325 MG TAB PO PRN (14:27)
--- NOTE | 2021-05-07 17:25 | Billing Data ---
Date of Service May 07, 2021 Coding Level of Care Code 11037 Subseq Hosp Care Lvl 3
[2021-05-07] MEDS: TAMSULOSIN HCL 0.4 MG CAP PO SCH (20:20)
[2021-05-08] MEDS: LEVOTHYROXINE SODIUM 75 MCG TABLET PO SCH (04:44)
[2021-05-08] MEDS: VANCOMYCIN HCL 250 MG/5 ML SOLN PO SCH ×4 (04:44→23:38)
[2021-05-08] MEDS: RASPBERRY SYRUP 5 ML UDP PO SCH ×4 (04:44→23:38)
[2021-05-08] MEDS: INSULIN ASPART 100 UNITS/ML 3 ML PEN SC SCH ×4 (08:05→21:26)
[2021-05-08 08:06] LABS: Basophils # (auto) 0.01 K/uL (0-0.2); Basophils % (auto) 0.1 %; Eosinophils # (auto) 0.01 K/uL (0-0.5); Eosinophils % (auto) 0.1 %; Hematocrit (blood only) 27.2 % (42-52); Hemoglobin 8.3 g/dL (14.0-18.0); Immature Granulocytes # (auto) 0.07 K/uL (0.00-0.02); Immature Granulocytes % (auto) 0.5 %; Lymphocytes # (auto) 0.45 K/uL (1.2-3.4); Lymphocytes % (auto) 3.3 %; Mean Corpuscular Hemoglobin 32.5 pg (25-34); Mean Corpuscular Hgb Conc 30.5 g/dL (32-36); Mean Corpuscular Volume 106.7 fL (80-100); Mean Platelet Volume 8.7 fL (7.4-10.4); Monocytes # (auto) 1.29 K/uL (0.11-0.59); Monocytes % (auto) 9.5 %; Neutrophils # (auto) 11.81 K/uL (1.4-6.5); Neutrophils % (auto) 86.5 %; Platelet Count 213 K/uL (130-400); RDW Coefficient of Variation 15.8 % (11.5-14.5); RDW Standard Deviation 61.5 fL (36.4-46.3); Red Blood Count 2.55 M/uL (4.7-6.1); White Blood Count 13.64 K/uL (4.8-10.8)
[2021-05-08] MEDS: acetaZOLAMIDE 250 MG TAB PO SCH (08:06)
[2021-05-08] MEDS: AMIODARONE 200 MG TAB PO SCH (08:06)
[2021-05-08] MEDS: ATORVASTATIN 40 MG TAB PO SCH (08:07)
[2021-05-08] MEDS: ASPIRIN 81 MG ECTAB PO SCH (08:07)
[2021-05-08] MEDS: APIXABAN 5 MG TABLET PO SCH ×2 (08:07→21:26)
[2021-05-08] MEDS: CYANOCOBALAMIN (VITAMIN B-12) 2,500 MCG TAB.SUBL SL SCH (08:08)
[2021-05-08] MEDS: CHOLECALCIFEROL 1,000 UNITS 25 MCG TAB PO SCH (08:08)
[2021-05-08] MEDS: FERROUS SULFATE 325 MG TAB PO SCH ×3 (08:09→21:24)
[2021-05-08] MEDS: METOPROLOL SUCC 25MG EXT REL TAB PO SCH ×2 (08:09→21:25)
[2021-05-08] MEDS: FUROSEMIDE 80 MG in SYRINGE 0 ML IV SCH ×2 (08:09→18:15)
[2021-05-08] MEDS: PANTOprazole 40 MG TAB PO SCH (08:10)
[2021-05-08] MEDS: MULTIVITAMIN TAB PO SCH (08:10)
[2021-05-08] MEDS: QUEtiapine FUMARATE 25 MG TABLET PO SCH (08:11)
[2021-05-08] MEDS: POTASSIUM CHLORIDE CRTAB 20 MEQ TABCR PO SCH (08:11)
[2021-05-08] MEDS: SACCHAROMYCES BOULARDII 250 MG CAP PO SCH (08:12)
[2021-05-08 08:44] LABS: BUN Creatinine Ratio 21.4 (10-20); C Reactive Protein 21.7 mg/dl (0-0.29); Calcium 11.3 mg/dl (8.5-10.1); Est GFR (African American) 73.7 ml/min; Est GFR (Non-African American) 63.6 ml/min; Potassium 4.3 mmol/L (3.5-5.1)
--- NOTE | 2021-05-08 10:28 | Cardiology Progress Note ---
Date of Service May 08, 2021 Assessment & Plan (1) Acute heart failure with preserved ejection fraction: (2) CAD in [place] artery: (3) S/P CABG (coronary artery bypass graft): (4) Persistent atrial fibrillation: (5) Hypertension: (6) Dyslipidemia: Plan: ASSESSMENT/PLAN: 1. Acute HFpEF (Heart failure with preserved EF): He remains hypervolemic. Daily fluid balance and weight do not suggest significant diuresis however he has had some urine outputs that were not calculated due to incontinence. His weight has been between 193-197 lb for the past week. His lower extremity edema is improving. His bicarb level has been elevated but stable as there was concern for contraction alkalosis. He's getting Acetazolamide 250 mg BID. Would try to diurese at least 1-2 L daily. Monitor electrolytes and renal function closely. If labs remain reasonable, would consider another dose of Diuril as needed to achieve adequate urine output. Low-sodium diet, less than 2000 mg daily. Strict I&Os and daily STANDING weights. Echo with preserved EF, 55-60%. 2. CAD s/p CABG x 3: No angina. Continue beta-hari. Had been on ARB in the past but was discontinued following hospitalization at [facility]. Continue high- intensity statin therapy. Recommend cardiac rehab on discharge. 3. Atrial fibrillation s/p cardioversion (05/05/21): Developed postoperative atrial fibrillation following CABG. Successfully converted to sinus rhythm last week. Continue amiodarone and anticoagulation for stroke risk reduction. AFib may or may not have been contributing to his CHF. Monitor TSH and transaminase levels while on amiodarone. 4. Hypertension: Blood pressure acceptable. Continue current regimen. 5. Dyslipidemia: Continue high-intensity statin therapy. 6. Hypokalemia and Hypo magnesemia: Magnesium and potassium levels have normalized following supplementation. 7. C diff diarrhea: Improved. Treatment as per primary service. 9. Disposition: Will continue to follow during hospitalization. Patient care communicated with Dr. Smith of the primary hospitalist service. Admission and Anticipated Discharge Date Admission Date: May 02, 2021 Subjective Patient sitting in the bedside chair without cardiac complaints. Feels like he is slowly improving. He remains on supplemental O2 at 2L. He continues to have significant lower extremity edema but it is improving. He is having right ankle pain. He sleeps with his head slightly elevated. He denies chest pain, dyspnea, PND. I&Os remain inaccurate due to incontinence. Weight has been stable 193-195 lb. Telemetry reviewed- sinus in the 70s, 1st degree block, with PVCs. Physical Exam Physical Exam: Gen.: No acute distress. Alert. HEENT: Anicteric sclera. Neck: Mild JVD. Cardiac: PMI was nonpalpable. No ventricular heave. Regular (after cardioversion). Normal S1-S2. 1/6 early peaking systolic ejection murmur best heard at the right upper sternal border. No rubs or gallops. Pulmonary: Clear to auscultation bilaterally without wheezes, rales, or rhonchi. Abdomen: Soft, nontender, nondistended, with normoactive bowel sounds. No bruits noted. Extremities: 2+ radial pulses bilaterally. 2+ posterior tibialis pulses bilaterally. 2+ bilateral pitting edema to the knees with 1+ pitting edema from the knees to the hips. No cyanosis. Psychiatric: Affect appears appropriate. Chest: Sternotomy site is clean, dry, and intact without erythema or discharge. Results & Data ([facility]) Vital Signs (Past 12 Hours) Vital Signs Temp Pulse Resp BP Pulse Ox 05/08/21 07:11 98.2 F 73 18 112/55 L 96 05/08/21 03:46 98.8 F 66 20 102/68 95 05/07/21 23:00 98.2 F 71 20 133/66 93 PG Care Time/CCT Total # of Minutes Spent Total Time Spent with Patient: Total time spent is greater than 50% in coordination of care (as documented) at patient's floor/unit and/or counseling patient: Coding Level of Care Code 71296 Subseq Hosp Care Lvl 3 Diagnoses Acute heart failure with preserved ejection fraction I50.31 CAD in [place] artery I25.10 S/P CABG (coronary artery bypass graft) Z95.1 Persistent atrial fibrillation I48.19 Hypertension I10 Dyslipidemia E78.5
[2021-05-08] MEDS ORDERED: BUMETANIDE 2 MG in SYRINGE 0 ML IV ONE (11:15)
--- NOTE | 2021-05-08 17:29 | Hospitalist Progress Note ---
Date of Service May 08, 2021 Assessment & Plan (1) Acute heart failure with preserved ejection fraction: Plan: #Acute heart failure with preserved ejection fraction: -echo 05/05/21: EF 55-60%, mild concentric LVH, mild to moderate mitral regurge, moderate tricuspid regurge, nosignificant changes from echo 02/21/21 -Physical exam showing persistent hypervolemia. Less leg swelling and tenderness, Minimal rales. -No change in weight. Continues to be hypervolemic. -80 mg bid lasix. If no improvement overnight - switch to 2mg iv bid bumex -Strict I&Os and daily weights. Continue heart healthy DM2 diet. -Monitor renal function and electrolytes closely. --> BUN Creatinine WNL #Elevated Bicarbonate - sec to hypercapnia. - Patient agreable to wearing bipap. -Discontinue acetazolamide #Lethargy -sec to hypercapnia -bipap use should help. #Persistent atrial fibrillation: -cont anticoagulation and rate control with amiodarone, eliquis, aspirin -Cardioverted 05/05/21 to normal sinus rhythm #S/P CABG (coronary artery bypass graft): - No angina pectoris. - Continue metoprolol succinate 12.5mg BID - Continue Atorvastatin 40 mg daily. - Cardio recommends cardiac rehab following discharge. #C. difficile diarrhea: - c. diff toxin and gene were positive. Hx. recurrent c. diff - diarrhea resolved currently loose stool, cont IV vancomycin -when discharged, recurrent c. diff total dosing: vancomycin 125mg PO q6h x10-14 days, then 125mg PO q12h x7 days, then 125 PO qd x 7 days, then 125mg PO q2-3 days x2-8 weeks #Right Ankle pain - discussed possible gout secondary to diuretic usage, will recheck in afternoon. FENa: heart healthy DM2 diet Code Status: full DVT PPX: eliquis PT/OT: ordered, seen by PT/OT, recommend inpt rehab Case Management: [facility] re[facility] Admission and Anticipated Discharge Date Admission Date: May 02, 2021 Supervising Physician Co-Signing Physician Notes Resident Physician Supervision Note: I independently interviewed and examined the patient and verified the shankar history and physical, reviewed labs and image studies and agree with resident Dr Timur Kimbrough findings and care plan. Subjective Patient sitting in the bedside chair without cardiac complaints. Pt states that he is not SOB and he feels that he is doing well. His current concern is that he is aware that he is becoming increasingly more confused, but overall he feels like he is slowly improving. He remains on supplemental O2 at 2L. He continues to have significant lower extremity edema. He is having right ankle pain stating "I have a bum ankle, a bum elbow, and a bum shoulder." He sleeps with his head slightly elevated. He denies chest pain, dyspnea, PND. I&Os remain inaccurate due to incontinence. Weight has been stable 193-195 lb. Telemetry reviewed- sinus in the 70s, 1st degree block, with PVCs. Pt has no other complaints at this time. Review of Systems Constitutional: as per Subjective / HPI Respiratory: as per Subjective / HPI Cardiovascular: as per Subjective / HPI Gastrointestinal: as per Subjective / HPI Genitourinary: + urinary incontinence Musculoskeletal: as per Subjective / HPI Neurologic: as per Subjective / HPI Psychiatric: as per Subjective / HPI Physical Exam Constitutional: well developed, well nourished, cooperative and comfortable Eyes: PERRL, conjunctivae normal, anicteric sclerae Neck: trachea midline, no thyromegaly Respiratory: normal respiratory effort, lungs clear to auscultation Cardiovascular: Rate/Rhythm: regular rate and regular rhythm Heart Sounds: normal S1 and normal S2 Extremities: + edema positive hepatojugular reflux Gastrointestinal (Abdomen): normal bowel sounds, soft, nontender, no hepatosplenomegaly Musculoskeletal: pain to palpation of the L medial and lateral epichondyles Psychiatric: Orientation: alert, oriented to person, oriented to place and oriented to time Results & Data Results & Data ([facility]) Vital Signs (Past 12 Hours) Vital Signs Temp Pulse Resp BP Pulse Ox 05/08/21 16:22 36.7 C 77 18 134/66 97 05/08/21 11:17 36.9 C 75 20 142/70 H 93 05/08/21 07:11 36.8 C 73 18 112/55 L 96
[2021-05-08] MEDS: TAMSULOSIN HCL 0.4 MG CAP PO SCH (21:25)
[2021-05-09] MEDS: VANCOMYCIN HCL 250 MG/5 ML SOLN PO SCH ×3 (06:01→17:22)
[2021-05-09] MEDS: LEVOTHYROXINE SODIUM 75 MCG TABLET PO SCH (06:01)
[2021-05-09] MEDS: RASPBERRY SYRUP 5 ML UDP PO SCH ×3 (06:01→17:22)
[2021-05-09 08:28] LABS: Basophils # (auto) 0.01 K/uL (0-0.2); Basophils % (auto) 0.1 %; Eosinophils # (auto) 0.02 K/uL (0-0.5); Eosinophils % (auto) 0.2 %; Hematocrit (blood only) 28.9 % (42-52); Hemoglobin 8.8 g/dL (14.0-18.0); Immature Granulocytes # (auto) 0.03 K/uL (0.00-0.02); Immature Granulocytes % (auto) 0.3 %; Lymphocytes # (auto) 0.45 K/uL (1.2-3.4); Lymphocytes % (auto) 4.1 %; Mean Corpuscular Hgb Conc 30.4 g/dL (32-36); Mean Corpuscular Volume 105.1 fL (80-100); Mean Platelet Volume 9.1 fL (7.4-10.4); Monocytes # (auto) 0.87 K/uL (0.11-0.59); Neutrophils % (auto) 87.3 %; Platelet Count 242 K/uL (130-400); RDW Coefficient of Variation 15.9 % (11.5-14.5); RDW Standard Deviation 61.4 fL (36.4-46.3); Red Blood Count 2.75 M/uL (4.7-6.1); White Blood Count 10.88 K/uL (4.8-10.8)
[2021-05-09 09:18] LABS: BUN Creatinine Ratio 21.4 (10-20); Calcium 11.7 mg/dl (8.5-10.1); Creatinine Clr Calc Pharmacy 50.6 ml/min; Est GFR (African American) 70.5 ml/min; Est GFR (Non-African American) 60.8 ml/min; Potassium 3.2 mmol/L (3.5-5.1)
[2021-05-09] MEDS: FERROUS SULFATE 325 MG TAB PO SCH ×3 (09:20→20:31)
[2021-05-09] MEDS: APIXABAN 5 MG TABLET PO SCH ×2 (09:20→20:32)
[2021-05-09] MEDS: METOPROLOL SUCC 25MG EXT REL TAB PO SCH ×2 (09:20→20:31)
[2021-05-09] MEDS: AMIODARONE 200 MG TAB PO SCH (09:21)
[2021-05-09] MEDS: MULTIVITAMIN TAB PO SCH (09:21)
[2021-05-09] MEDS: POTASSIUM CHLORIDE CRTAB 20 MEQ TABCR PO SCH ×2 (09:21→20:32)
[2021-05-09] MEDS: CYANOCOBALAMIN (VITAMIN B-12) 2,500 MCG TAB.SUBL SL SCH (09:21)
[2021-05-09] MEDS: ASPIRIN 81 MG ECTAB PO SCH (09:21)
[2021-05-09] MEDS: PANTOprazole 40 MG TAB PO SCH (09:21)
[2021-05-09] MEDS: CHOLECALCIFEROL 1,000 UNITS 25 MCG TAB PO SCH (09:21)
[2021-05-09] MEDS: SACCHAROMYCES BOULARDII 250 MG CAP PO SCH (09:21)
[2021-05-09] MEDS: ATORVASTATIN 40 MG TAB PO SCH (09:21)
[2021-05-09] MEDS: FUROSEMIDE 80 MG in SYRINGE 0 ML IV SCH ×2 (09:23→17:23)
[2021-05-09] MEDS: INSULIN ASPART 100 UNITS/ML 3 ML PEN SC SCH ×4 (09:37→20:49)
[2021-05-09] MEDS: QUEtiapine FUMARATE 25 MG TABLET PO SCH (09:38)
[2021-05-09] MEDS ORDERED: POTASSIUM CHLORIDE CRTAB 20 MEQ TABCR PO STA (09:42)
--- NOTE | 2021-05-09 15:29 | Cardiology Progress Note ---
Date of Service May 09, 2021 Assessment & Plan (1) Acute heart failure with preserved ejection fraction: (2) CAD in [place] artery: (3) S/P CABG (coronary artery bypass graft): (4) Persistent atrial fibrillation: (5) Hypertension: (6) Dyslipidemia: Plan: ASSESSMENT/PLAN: 1. Acute HFpEF (Heart failure with preserved EF): He remains hypervolemic. Daily fluid balance and weight do not suggest significant diuresis however he has had some urine outputs that were not calculated due to incontinence. His weight is trending down today. Would recommend a STANDING weight with PT today if able. His lower extremity edema is improving. His bicarb level has been elevated but now trending down. He's getting Acetazolamide 250 mg BID. Would try to diurese at least 1-2 L daily. Monitor electrolytes and renal function closely. If labs remain reasonable, would consider another dose of Diuril as needed to achieve adequate urine output. For now he seems to be making slow progress on his current regimen. Trend BNP tomorrow. Low-sodium diet, less than 2000 mg daily. Strict I&Os and daily STANDING weights. Echo with preserved EF, 55-60%. 2. CAD s/p CABG x 3: No angina. Continue beta-hari. Had been on ARB in the past but was discontinued following hospitalization at [facility] – [place]. Continue high- intensity statin therapy. Recommend cardiac rehab on discharge. 3. Atrial fibrillation s/p cardioversion (05/05/21): Developed postoperative atrial fibrillation following CABG. Successfully converted to sinus rhythm last week. Continue amiodarone and anticoagulation for stroke risk reduction. AFib may or may not have been contributing to his CHF. Monitor TSH and transaminase levels while on amiodarone. 4. Hypertension: Blood pressure acceptable. Continue current regimen. 5. Dyslipidemia: Continue high-intensity statin therapy. 6. Hypokalemia and Hypo magnesemia: Replace per primary service. 7. C diff diarrhea: Improved. Treatment as per primary service. 9. Disposition: Will continue to follow during hospitalization. Patient care c ommunicated with Dr. Garcia of the primary hospitalist service. Anticipating SNF on discharge. Admission and Anticipated Discharge Date Admission Date: May 02, 2021 Subjective Patient sitting in the bedside chair without cardiac complaints. Feels like he is slowly improving. He is more alert today. He remains on supplemental O2 at 2L. He continues to have significant lower extremity edema but it is improving. He is having right ankle pain. He sleeps with his head slightly elevated. He denies chest pain, dyspnea, PND. I&Os remain inaccurate due to incontinence. Weight is down to 191 lb today. Telemetry reviewed- initially questionable if he was back in atrial fibrillation but p-waves now evident- sinus in the 70s, 1st degree block, with PVCs. Physical Exam Physical Exam: Gen.: No acute distress. More alert. HEENT: Anicteric sclera. Neck: Mild JVD. Cardiac: PMI was nonpalpable. No ventricular heave. Regular. Normal S1-S2. 1/6 early peaking systolic ejection murmur best heard at the right upper sternal border. No rubs or gallops. Pulmonary: Clear to auscultation bilaterally without wheezes, rales, or rhonchi. Abdomen: Soft, nontender, nondistended, with normoactive bowel sounds. No bruits noted. Extremities: 2+ radial pulses bilaterally. 2+ posterior tibialis pulses bilaterally. 2+ bilateral pitting edema to the knees with 1+ pitting edema from the knees to the hips. No cyanosis. Psychiatric: Affect appears appropriate. Chest: Sternotomy site is clean, dry, and intact without erythema or discharge. Results & Data ([facility]) Vital Signs (Past 12 Hours) Vital Signs Temp Pulse Pulse Resp BP Pulse Ox 05/09/21 11:59 97.5 F L 72 20 129/64 98 05/09/21 08:19 98.2 F 88 18 106/72 96 05/09/21 08:15 80 PG Care Time/CCT Total # of Minutes Spent Total Time Spent with Patient: Total time spent is greater than 50% in coordination of care (as documented) at patient's floor/unit and/or counseling patient: Coding Level of Care Code 11425 Subseq Hosp Care Lvl 3 Diagnoses Acute heart failure with preserved ejection fraction I50.31 CAD in [place] artery I25.10 S/P CABG (coronary artery bypass graft) Z95.1 Persistent atrial fibrillation I48.19 Hypertension I10 Dyslipidemia E78.5
--- NOTE | 2021-05-09 16:16 | Hospitalist Progress Note ---
Date of Service May 09, 2021 Assessment & Plan (1) Acute heart failure with preserved ejection fraction: Plan: (1) Acute heart failure with preserved ejection fraction: -Physical exam showing signs of improvement. Less leg swelling and tenderness, Minimal rales. -echo 05/05/21: EF 55-60%, mild concentric LVH, mild to moderate mitral regurge, moderate tricuspid regurge, nosignificant changes from echo 02/21/21 -Continue 80 mg bid lasix. Loss of 1.8 kg over 24 hours -Strict I&Os and daily weights. Continue heart healthy DM2 diet. -Monitor renal function and electrolytes closely. --> BUN Creatinine WNL (2) Hypercapnia - Will reattempt bipap tonight. -d/c seroquel to reduce drowsiness, it was found he was not taking it prior to admission for agitation. (3) Persistent atrial fibrillation: -cont amiodarone, eliquis, and asa -Cardioverted 05/05/21 to normal sinus rhythm, reverted back to Afib overnight. (4) S/P CABG (coronary artery bypass graft): - No angina pectoris. - Continue metoprolol succinate 12.5mg BID - Continue Atorvastatin 40 mg daily. - Cardio recommends cardiac rehab following discharge. (5) C. difficile diarrhea: - c. diff toxin and gene were positive. Hx. recurrent c. diff - diarrhea resolved currently loose stool, cont IV vancomycin -when discharged, recurrent c. diff total dosing: vancomycin 125mg PO q6h x10-14 days, then 125mg PO q12h x7 days, then 125 PO qd x 7 days, then 125mg PO q2-3 days x2-8 weeks FENa: heart healthy DM2 diet Code Status: full DVT PPX: eliquis PT/OT: ordered, seen by PT/OT, recommend inpt rehab Case Management: [facility] re[facility] Admission and Anticipated Discharge Date Admission Date: May 02, 2021 Supervising Physician Co-Signing Physician Notes Resident Physician Supervision Note: I independently interviewed and examined the patient and verified the shankar history and physical, reviewed labs and image studies and agree with resident Dr. Kimbrough findings and care plan. Subjective Pt seen today while he was resting in his chair. Pt states that he is doing well today. He denies any issues with breathing. He states that he wore the bipap last night for about an hour before he got frustrated and took it off to sleep. He states that he does not want to wear it again tonight. Yesterday he had become confused and frustrated yesterday afternoon and did not look well according to nursing. He states that he is aware that he becomes confused later in the day and states it has been getting progressively worse since he has been in the hospital. In the mornings he is aware of where he is, who he is and, what year it is. Otherwise he has no additional complaints. Review of Systems Review of Systems: All systems reviewed & are unremarkable except as noted in HPI & below Physical Exam Constitutional: WD/WN, vitals as above cooperative and comfortable Eyes: + anicteric sclerae Neck: trachea midline, no thyromegaly Respiratory: normal respiratory effort, lungs clear to auscultation Cardiovascular: RRR, no murmur, no edema Extremities: + edema (2+ b/l pitting edema) Hepatojugular Reflux present. Gastrointestinal (Abdomen): normal bowel sounds, soft, nontender, no hepatosplenomegaly Skin: no rashes, warm and dry + scar (on chest from CABG) Psychiatric: A+Ox3, euthymic affect Results & Data Results & Data ([facility]) Vital Signs (Past 12 Hours) Vital Signs Temp Pulse Pulse Resp BP Pulse Ox 05/09/21 11:59 36.4 C L 72 20 129/64 98 05/09/21 08:19 36.8 C 88 18 106/72 96 05/09/21 08:15 80 Resident Activity Tracking Resident Involvement: Resident Care Provided Care Provided: Adult Hospital Medicine
[2021-05-09] MEDS: TAMSULOSIN HCL 0.4 MG CAP PO SCH (20:32)
[2021-05-10] MEDS: RASPBERRY SYRUP 5 ML UDP PO SCH ×5 (00:30→23:36)
[2021-05-10] MEDS: VANCOMYCIN HCL 250 MG/5 ML SOLN PO SCH ×5 (00:30→23:37)
[2021-05-10] MEDS: LEVOTHYROXINE SODIUM 75 MCG TABLET PO SCH (06:08)
[2021-05-10 07:27] LABS: ALC (manual) 0.26 K/uL (1.2-3.4); ANC (manual) 6.83 K/uL (1.4-6.5); Eosinophils # (manual) 0.07 K/uL (0-0.5); Eosinophils % (manual) 0.9 %; Hematocrit (blood only) 25.9 % (42-52); Hemoglobin 8.2 g/dL (14.0-18.0); Lymphocytes # (manual) 0.26 K/uL (1.2-3.4); Lymphocytes % (manual) 3.5 %; Mean Corpuscular Hemoglobin 33.3 pg (25-34); Mean Corpuscular Hgb Conc 31.7 g/dL (32-36); Mean Corpuscular Volume 105.3 fL (80-100); Mean Platelet Volume 10.1 fL (7.4-10.4); Monocytes # (manual) 0.26 K/uL (0.11-0.59); Monocytes % (manual) 3.5 %; Neutrophils # (manual) 6.83 K/uL (1.4-6.5); Neutrophils % (manual) 92.1 %; Platelet Count 233 K/uL (130-400); RDW Coefficient of Variation 15.7 % (11.5-14.5); RDW Standard Deviation 60.9 fL (36.4-46.3); Red Blood Count 2.46 M/uL (4.7-6.1); White Blood Count 7.42 K/uL (4.8-10.8)
[2021-05-10 07:59] LABS: BUN Creatinine Ratio 27.2 (10-20); Calcium 11.6 mg/dl (8.5-10.1); Creatinine Clr Calc Pharmacy 53.8 ml/min; Est GFR (African American) 75.4 ml/min; Potassium 3.4 mmol/L (3.5-5.1)
[2021-05-10] MEDS: AMIODARONE 200 MG TAB PO SCH (08:30)
[2021-05-10] MEDS: ASPIRIN 81 MG ECTAB PO SCH (08:30)
[2021-05-10] MEDS: APIXABAN 5 MG TABLET PO SCH ×2 (08:30→20:53)
[2021-05-10] MEDS: ATORVASTATIN 40 MG TAB PO SCH (08:30)
[2021-05-10] MEDS: FERROUS SULFATE 325 MG TAB PO SCH ×3 (08:31→20:52)
[2021-05-10] MEDS: METOPROLOL SUCC 25MG EXT REL TAB PO SCH ×2 (08:31→20:52)
[2021-05-10] MEDS: CHOLECALCIFEROL 1,000 UNITS 25 MCG TAB PO SCH (08:31)
[2021-05-10] MEDS: CYANOCOBALAMIN (VITAMIN B-12) 2,500 MCG TAB.SUBL SL SCH (08:31)
[2021-05-10] MEDS: MULTIVITAMIN TAB PO SCH (08:31)
[2021-05-10] MEDS: PANTOprazole 40 MG TAB PO SCH (08:32)
[2021-05-10] MEDS: SACCHAROMYCES BOULARDII 250 MG CAP PO SCH (08:32)
[2021-05-10] MEDS: POTASSIUM CHLORIDE CRTAB 20 MEQ TABCR PO SCH ×2 (08:32→20:52)
[2021-05-10] MEDS: INSULIN ASPART 100 UNITS/ML 3 ML PEN SC SCH ×4 (08:43→20:40)
[2021-05-10] MEDS: FUROSEMIDE 80 MG in SYRINGE 0 ML IV SCH (08:46)
--- NOTE | 2021-05-10 09:06 | Electrocardiogram Report ---
Test Reason : Blood Pressure : / mmHG Vent. Rate : 071 BPM Atrial Rate : 277 BPM P-R Int : 000 ms QRS Dur : 178 ms QT Int : 470 ms P-R-T Axes : 000 -66 034 degrees QTc Int : 510 ms Atrial fibrillation with premature ventricular or aberrantly conducted complexes Right bundle branch block Left anterior fascicular block Bifascicular block Abnormal ECG When compared with ECG of 05-MAY-2021 07:37, No significant change was found Confirmed by Gigi Monae ([id number]) on 05/10/2021 9:05:43 AM Referred By: Ranjit Adler Confirmed By:Gigi Monae
--- NOTE | 2021-05-10 09:31 | Cardiology Progress Note ---
Date of Service May 10, 2021 Assessment & Plan (1) Acute heart failure with preserved ejection fraction: (2) CAD in [place] artery: (3) S/P CABG (coronary artery bypass graft): (4) Persistent atrial fibrillation: (5) Hypertension: (6) Dyslipidemia: Plan: ASSESSMENT/PLAN: 1. Acute HFpEF (Heart failure with preserved EF): Unfortunately, he remains hypervolemic on exam. Recommend Bumex [address]. in place of Lasix. If he does not appear as though he will achieve at least 1-2 L negative net fluid balance by the end of the day, would recommend a dose of diuril 250 mg IV prior to next dose of Bumex. Given continued need for potassium supplementation, consider spironolactone 25 mg daily. Will defer potassium supplementation to primary service. Monitor electrolytes and renal function closely. Continue to follow with heart failure program, [facility]. Low-sodium diet, less than 2000 mg daily. Strict I&Os and daily weights. LV systolic function is normal. 2. CAD s/p CABG x 3: No angina. Continue beta-hari. Had been on ARB in the past but was discontinued following hospitalization at [facility] [place] [facility] [place]. Continue high- intensity statin therapy. Recommend cardiac rehab on discharge. 3. Atrial fibrillation s/p cardioversonin (05/05/21): Developed postoperative atrial fibrillation following CABG. He was successfully converted to sinus rhythm but once again in atrial fibrillation. Discontinue amiodarone and can titrate beta-hari for rate control strategy. Continue anticoagulation for stroke risk reduction. 4. Hypertension: Blood pressure acceptable. Adjustment in diuretic as above. 5. Dyslipidemia: Continue high-intensity statin therapy. 6. Hypokalemia and Hypo magnesemia: Monitor and supplement as per primary service. 7. C diff diarrhea: Improved. Treatment as per primary service. 8. Disposition: Patient care discussed with primary hospitalist service, Dr. Kimbrough. Please call with any other questions or concerns. Admission and Anticipated Discharge Date Admission Date: May 02, 2021 Subjective Patient was seen this morning. He denies shortness of breath, chest pain, syncope, near-syncope. He believes that his lower extremity edema has improved. He remains weak. He has not had any further diarrhea. He admits that he is having at least 1 episode of urinary incontinence per day. Review of systems: As above. Physical Exam Physical Exam: Gen.: No acute distress. Alert. HEENT: Anicteric sclera. Neck: Hepatic jugular reflux noted. Cardiac: Irregularly irregular. Normal S1-S2. 1/6 early peaking systolic ejection murmur best heard at the right upper sternal border. No rubs or gallops. Pulmonary: Clear to auscultation bilaterally without wheezes, rales, or rhonchi. Abdomen: Soft, nontender, nondistended, with normoactive bowel sounds. No bruits noted. Extremities: 2+ radial pulses bilaterally. 2+ posterior tibialis pulses bilaterally. 3+ bilateral pitting edema to the knees with 1+ pitting edema from the knees to the hips when. No cyanosis. Psychiatric: Affect appears appropriate. Results & Data ([facility]) Vital Signs (Past 12 Hours) Vital Signs Temp Pulse Pulse Resp BP Pulse Ox 05/10/21 07:46 70 05/10/21 07:42 36.5 C 76 18 127/47 L 100 05/10/21 03:53 36.6 C 66 16 114/67 97 05/09/21 23:00 36.6 C 75 85 18 132/74 94 Intake & Output 05/08/21 05/09/21 05/10/21 05/11/21 06:59 06:59 06:59 06:59 Intake Total 340 / 340 450 / 450 1685 / 1685 Output Total 552 / 552 725 / 725 2353 / 2353 100 / 100 Balance -212 / -212 -275 / -275 -668 / -668 -100 / -100 Weight 195 lb 15.855 oz 191 lb 12.835 oz 194 lb 3.636 oz Laboratory Results Laboratory Results - last 24 hr 05/09/21 05/09/21 05/10/21 16:31 20:11 06:15 WBC 7.42 RBC 2.46 L Hgb 8.2 L Hct 25.9 L MCV 105.3 H MCH 33.3 MCHC 31.7 L RDW Std Deviation 60.9 H RDW Coeff of Savi 15.7 H Plt Count 233 MPV 10.1 Neutrophils % (Manual) 92.1 Lymphocytes % (Manual) 3.5 Monocytes % (Manual) 3.5 Eosinophils % (Manual) 0.9 Neutrophils # (Manual) 6.83 H Total Absolute Neuts 6.83 H Lymphocytes # (Manual) 0.26 L Total Abs Lymphocytes 0.26 L Monocytes # (Manual) 0.26 Eosinophils # (Manual) 0.07 Sodium Potassium Chloride Carbon Dioxide Anion Gap BUN Creatinine Est Cr Clr Drug Dosing Est GFR ( Amer) Est GFR (Non-Af Amer) BUN/Creatinine Ratio Glucose POC Glucose 156 H 219 H Calcium NT-Pro-B Natriuret Pep 05/10/21 05/10/21 05/10/21 06:15 07:33 11:17 WBC RBC Hgb Hct MCV MCH MCHC RDW Std Deviation RDW Coeff of Savi Plt Count MPV Neutrophils % (Manual) Lymphocytes % (Manual) Monocytes % (Manual) Eosinophils % (Manual) Neutrophils # (Manual) Total Absolute Neuts Lymphocytes # (Manual) Total Abs Lymphocytes Monocytes # (Manual) Eosinophils # (Manual) Sodium 137 Potassium 3.4 L Chloride 92 L Carbon Dioxide 42 H* Anion Gap 3.0 BUN 29 H Creatinine 1.06 Est Cr Clr Drug Dosing 53.8 Est GFR ( Amer) 75.4 Est GFR (Non-Af Amer) 65.0 BUN/Creatinine Ratio 27.2 H Glucose 135 H POC Glucose 149 H 197 H Calcium 11.6 H NT-Pro-B Natriuret Pep 4623 H Diagnostic Findings Telemetry personally reviewed. Had been in sinus rhythm following cardioversion last week. Currently in atrial fibrillation with normal rate. No significant pauses. Chart reviewed. ECG 05/10/2021 personally reviewed: AFib 71 beats per minute. PVC versus aberrantly conducted complex. RBBB. LAFB. Medications Administered Current Inpatient Medications Acetaminophen (Acetaminophen 325 Mg Tab) 650 mg PO Q6H PRN PRN Reason: Pain Stop: 06/06/21 14:26 Last Admin: 05/09/21 17:22 Dose: 650 mg Documented by: Apixaban (Apixaban 5 Mg Tablet) 5 mg PO BID [facility]IO Stop: 06/01/21 20:59 Last Admin: 05/10/21 08:30 Dose: 5 mg Documented by: Aspirin (Aspirin 81 Mg Ectab) 81 mg PO DAILY [place] Stop: 06/02/21 08:59 Last Admin: 05/10/21 08:30 Dose: 81 mg Documented by: Atorvastatin Calcium (Atorvastatin 40 Mg Tab) 40 mg PO QAM [place] Stop: 06/02/21 08:59 Last Admin: 05/10/21 08:30 Dose: 40 mg Documented by: Cyanocobalamin (Cyanocobalamin (Vitamin B-12) 2,500 Mcg Tab.Subl) 5,000 mcg SL DAILY [place] Stop: 06/02/21 08:59 Last Admin: 05/10/21 08:31 Dose: 5,000 mcg Documented by: Dextrose (Dextrose 50% 50 Ml Syringe) 25 - 50 ml IV UD PRN; Protocol PRN Reason: Hypoglycemia Protocol Stop: 06/02/21 01:14 Ferrous Sulfate (Ferrous Sulfate 325 Mg Tab) 325 mg PO TID [facility] Stop: 06/01/21 20:59 Last Admin: 05/10/21 08:31 Dose: 325 mg Documented by: Glucagon (Glucagon For Inj 1 Mg Vial) 1 mg SQ UD PRN; Protocol PRN Reason: Hypoglycemia Protocol Stop: 06/02/21 01:14 Glucose (Glucose 40% Gel 15 Gm Tube) 15 - 30 gm PO UD PRN; Protocol PRN Reason: Hypoglycemia Protocol Stop: 06/02/21 01:14 Glucose (Glucose 10 Tabs/Tube) 4 - 8 tabs PO UD PRN; Protocol PRN Reason: Hypoglycemia Protocol Stop: 06/02/21 01:14 Bumetanide 3 mg/ Syringe 12 mls @ 4 mls/min IV BID@0900,1700 [facility] Stop: 06/09/21 16:59 Insulin Aspart (Insulin Aspart 100 Units/Ml 3 Ml Pen) 0 units SC ACHS [facility]; Protocol Stop: 06/02/21 01:59 Last Admin: 05/10/21 12:24 Dose: 2 units Documented by: Levothyroxine Sodium (Levothyroxine Sodium 75 Mcg Tablet) 75 mcg PO DAILYBB [facility] Stop: 06/02/21 06:29 Last Admin: 05/10/21 06:08 Dose: 75 mcg Documented by: Melatonin (Melatonin 3 Mg Tab) 9 mg PO HS PRN PRN Reason: Sleep Stop: 06/01/21 20:43 Metoprolol Succinate (Metoprolol Succ 25mg Ext Rel Tab) 25 mg PO BID [facility] Stop: 06/09/21 20:59 Miscellaneous (Carbohydrates For Hypoglycemia ) 15 - 30 gm PO UD PRN PRN Reason: Hypoglycemia Treatment Stop: 06/02/21 01:14 Multivitamins (Multivitamin Tab) 1 tab PO DAILY [facility] Stop: 06/02/21 08:59 Last Admin: 05/10/21 08:31 Dose: 1 tab Documented by: Pantoprazole Sodium (Pantoprazole 40 Mg Tab) 40 mg PO DAILY [facility] Stop: 06/02/21 08:59 Last Admin: 05/10/21 08:32 Dose: 40 mg Documented by: Potassium Chloride (Potassium Chloride Crtab 20 Meq Tabcr) 40 meq PO BID [facility] Stop: 06/08/21 20:59 Last Admin: 05/10/21 08:32 Dose: 40 meq Documented by: Raspberry (Raspberry Syrup 5 Ml Udp) 5 ml PO Q6 [facility] Stop: 05/17/21 00:00 Last Admin: 05/10/21 12:25 Dose: 5 ml Documented by: Saccharomyces Boulardii (Saccharomyces Boulardii 250 Mg Cap) 250 mg PO DAILY [facility] Stop: 06/02/21 08:59 Last Admin: 05/10/21 08:32 Dose: 250 mg Documented by: Tamsulosin HCl (Tamsulosin Hcl 0.4 Mg Cap) 0.8 mg PO HS [facility] Stop: 06/01/21 20:59 Last Admin: 05/09/21 20:32 Dose: 0.8 mg Documented by: Vancomycin HCl (Vancomycin Hcl 250 Mg/5 Ml Soln) 250 mg PO Q6 [facility] Stop: 05/13/21 00:00 Last Admin: 05/10/21 12:25 Dose: 250 mg Documented by: Vitamin D (Cholecalciferol 1,000 Units 25 Mcg Tab) 1,000 units PO DAILY [facility] Stop: 06/02/21 08:59 Last Admin: 05/10/21 08:31 Dose: 1,000 units Documented by: PG Care Time/CCT Total # of Minutes Spent Total Time Spent with Patient: Total time spent is greater than 50% in coordination of care (as documented) at patient's floor/unit and/or counseling patient: Coding Level of Care Code 62648 Subseq Hosp Care Lvl 3 Diagnoses Acute heart failure with preserved ejection fraction I50.31 CAD in [place] artery I25.10 S/P CABG (coronary artery bypass graft) Z95.1 Persistent atrial fibrillation I48.19 Hypertension I10 Dyslipidemia E78.5
--- NOTE | 2021-05-10 12:34 | Hospitalist Progress Note ---
Date of Service May 10, 2021 Assessment & Plan (1) Acute heart failure with preserved ejection fraction: Plan: (1) Acute heart failure with preserved ejection fraction: -Physical exam showing no real improvement from yesterday. -I&O's showed -768 mL over 24 hours. These may not be accurate as his is incontinent and urinates in bed and on floor sometimes. -echo 05/05/21: EF 55-60%, mild concentric LVH, mild to moderate mitral regurge, moderate tricuspid regurge, nosignificant changes from echo 02/21/21 -Cardiology recommended change of 80 mg lasix BID to 3 mg Bumex BID which was ordered today. -I&Os and daily weights. Unable to get strict I and Os. Continue heart healthy DM2 diet. -Monitor renal function and electrolytes closely. --> BUN Creatinine WNL (2) Hypercapnia -Pt attempted bipap once more last night but had it removed as soon as it was put on. -Pt states he will not attempt bipap any longer (3) Persistent atrial fibrillation: -d/c amiodarone, increase metoprolol succinate from 12.5mg bid to 25mg bid per cardio recommendation (4) S/P CABG (coronary artery bypass graft): - No angina pectoris. - Metoprolol changed from 12.5mg bid to 25mg bid - Continue Atorvastatin 40 mg daily. - Cardio recommends cardiac rehab following discharge. (5) C. difficile diarrhea: - c. diff toxin and gene were positive. Hx. recurrent c. diff - diarrhea resolved currently loose stool, cont PO vancomycin -when discharged, recurrent c. diff total dosing: vancomycin 125mg PO q6h x10-14 days, then 125mg PO q12h x7 days, then 125 PO qd x 7 days, then 125mg PO q2-3 days x2-8 weeks DM -Metformin on hold -follow bsg. SSI FENa: heart healthy DM2 diet Code Status: full DVT PPX: eliquis PT/OT: ordered, seen by PT/OT, recommend inpt rehab Case Management: [facility] Admission and Anticipated Discharge Date Admission Date: May 02, 2021 Supervising Physician Co-Signing Physician Notes Resident Physician Supervision Note: I independently interviewed and examined the patient and verified the shankar history and physical, reviewed labs and image studies and agree with resident Dr. Fye findings and care plan. Subjective Pt seen today while he was resting in his chair. Pt states that he is doing well today. He denies any issues with breathing. He states that he took the bipap off last night immediately after it was put on. He states he is refusing to attempt to use it anymore. Yesterday afternoon, the nurses reported no incidence of confusion or aggression which is an improvement from yesterday. Otherwise he has no additional complaints. Review of Systems Review of Systems: All systems reviewed & are unremarkable except as noted in HPI & below Physical Exam Constitutional: WD/WN, vitals as above well nourished, cooperative and comfortable Eyes: PERRL, conjunctivae normal, anicteric sclerae + anicteric sclerae Neck: trachea midline, no thyromegaly Respiratory: normal respiratory effort, lungs clear to auscultation Cardiovascular: RRR, no murmur, no edema Rate/Rhythm: regular rate and regular rhythm Heart Sounds: normal S1 and normal S2 Extremities: + edema (2+ b/l pitting edema) Gastrointestinal (Abdomen): normal bowel sounds, soft, nontender, no hepatosplenomegaly Skin: no rashes, warm and dry + scar (on chest from CABG) Psychiatric: A+Ox3, euthymic affect Orientation: alert, oriented to person, oriented to place and oriented to time Results & Data Results & Data ([facility]) Vital Signs (Past 12 Hours) Vital Signs Temp Pulse Pulse Resp BP Pulse Ox 05/10/21 11:21 36.6 C 73 20 115/65 98 05/10/21 07:46 70 05/10/21 07:42 36.5 C 76 18 127/47 L 100 05/10/21 03:53 36.6 C 66 16 114/67 97 Resident Activity Tracking Resident Involvement: Resident Care Provided Care Provided: Adult Hospital Medicine
[2021-05-10] MEDS: BUMETANIDE 3 MG in SYRINGE 0 ML IV SCH (17:18)
[2021-05-10] MEDS: TAMSULOSIN HCL 0.4 MG CAP PO SCH (20:53)
[2021-05-11] MEDS: RASPBERRY SYRUP 5 ML UDP PO SCH ×4 (05:09→23:08)
[2021-05-11] MEDS: VANCOMYCIN HCL 250 MG/5 ML SOLN PO SCH ×4 (05:09→23:08)
[2021-05-11] MEDS: LEVOTHYROXINE SODIUM 75 MCG TABLET PO SCH (05:10)
[2021-05-11] MEDS: CYANOCOBALAMIN (VITAMIN B-12) 2,500 MCG TAB.SUBL SL SCH (08:36)
[2021-05-11] MEDS: ASPIRIN 81 MG ECTAB PO SCH (08:36)
[2021-05-11] MEDS: ATORVASTATIN 40 MG TAB PO SCH (08:36)
[2021-05-11] MEDS: FERROUS SULFATE 325 MG TAB PO SCH ×3 (08:37→20:36)
[2021-05-11] MEDS: METOPROLOL SUCC 25MG EXT REL TAB PO SCH ×2 (08:37→20:38)
[2021-05-11] MEDS: APIXABAN 5 MG TABLET PO SCH ×2 (08:37→20:35)
[2021-05-11] MEDS: POTASSIUM CHLORIDE CRTAB 20 MEQ TABCR PO SCH ×2 (08:38→20:36)
[2021-05-11] MEDS: SACCHAROMYCES BOULARDII 250 MG CAP PO SCH (08:38)
[2021-05-11] MEDS: MULTIVITAMIN TAB PO SCH (08:38)
[2021-05-11] MEDS: CHOLECALCIFEROL 1,000 UNITS 25 MCG TAB PO SCH (08:38)
[2021-05-11] MEDS: PANTOprazole 40 MG TAB PO SCH (08:38)
[2021-05-11] MEDS: INSULIN ASPART 100 UNITS/ML 3 ML PEN SC SCH ×4 (08:39→21:29)
[2021-05-11] MEDS: BUMETANIDE 3 MG in SYRINGE 0 ML IV SCH ×2 (08:59→17:35)
[2021-05-11 10:05] LABS: Hematocrit (blood only) 30.2 % (42-52); Hemoglobin 9.1 g/dL (14.0-18.0); Mean Corpuscular Hgb Conc 30.1 g/dL (32-36); Mean Corpuscular Volume 106.3 fL (80-100); Mean Platelet Volume 9.2 fL (7.4-10.4); Platelet Count 276 K/uL (130-400); RDW Standard Deviation 62.3 fL (36.4-46.3); Red Blood Count 2.84 M/uL (4.7-6.1); White Blood Count 7.76 K/uL (4.8-10.8)
--- NOTE | 2021-05-11 10:25 | Cardiology Progress Note ---
Date of Service May 11, 2021 Assessment & Plan (1) Acute heart failure with preserved ejection fraction: (2) CAD in [place] artery: (3) S/P CABG (coronary artery bypass graft): (4) Persistent atrial fibrillation: (5) Hypertension: (6) Dyslipidemia: Plan: ASSESSMENT/PLAN: 1. Acute HFpEF (Heart failure with preserved EF): Unfortunately, he remains hypervolemic on exam. He was transitioned from Lasix to Bumex 3 mg IV b.i.d. He was given another dose of Diuril yesterday. Given that his edema appears worse today and labs are stable, would recommend a dose of diuril 250 mg IV prior to next dose of Bumex. Continue to follow labs closely. If he responds well will adjust his dose to be given with the am Bumex after today. Given continued need for potassium supplementation, consider spironolactone 25 mg daily. Will defer potassium supplementation to primary service. Monitor electrolytes and renal function closely. Continue to follow with heart failure program on discharge. High risk for readmission, especially if we are not able to fully optimize him. Low-sodium diet, less than 2000 mg daily. Strict I&Os and daily weights. LV systolic function is normal. 2. CAD s/p CABG x 3: No angina. Continue beta-hari. Had been on ARB in the past but was discontinued following hospitalization at [facility]. Continue high- intensity statin therapy. Recommend cardiac rehab on discharge. 3. Atrial fibrillation s/p cardioversion (05/05/21): Developed postoperative atrial fibrillation following CABG. He was successfully converted to sinus rhythm but once again in atrial fibrillation. Amiodarone has been discontinued. Rate currently well controlled. Can titrate beta-hari as needed for rate control strategy. Continue anticoagulation for stroke risk reduction. 4. Hypertension: Blood pressure acceptable. Adjustment in diuretic as above. 5. Dyslipidemia: Continue high-intensity statin therapy. 6. Hypokalemia and Hypo magnesemia: Monitor and supplement as per primary service. 7. C diff diarrhea: Improved. Treatment as per primary service. 8. Disposition: Patient care discussed with primary hospitalist service, Dr. Garcia. Admission and Anticipated Discharge Date Admission Date: May 02, 2021 Subjective Patient was seen this morning- he was sitting in the bedside chair. He seems more alert. He denies shortness of breath, chest pain, syncope, near-syncope. It appears that his lower extremity edema is slightly worse today. He remains weak but was able to successful get out of bed and to the bedside commode this am. He has not had any further diarrhea. He admits that he is having at least 1 episode of urinary incontinence per day. He's net negative 2.2L which is likely inaccurate due ot missed measurements and incontinence. Weight is 191 lb this am on the standing scale. Physical Exam Physical Exam: Gen.: No acute distress. More alert. HEENT: Anicteric sclera. Neck: Mild JVD. Cardiac: PMI was nonpalpable. No ventricular heave. Regular. Normal S1-S2. 1/6 early peaking systolic ejection murmur best heard at the right upper sternal border. No rubs or gallops. Pulmonary: Clear to auscultation bilaterally without wheezes, rales, or rhonchi. Abdomen: Soft, nontender, nondistended, with normoactive bowel sounds. No bruits noted. Extremities: 2+ radial pulses bilaterally. 2+ posterior tibialis pulses bilaterally. 2-3+ bilateral pitting edema to the knees with 1-2+ pitting edema from the knees to the hips. No cyanosis. Psychiatric: Affect appears appropriate. Chest: Sternotomy site is clean, dry, and intact without erythema or discharge. Results & Data ([facility]) Vital Signs (Past 12 Hours) Vital Signs Temp Pulse Pulse Resp BP Pulse Ox 05/11/21 07:26 98.4 F 67 20 114/53 L 97 05/11/21 05:04 98.1 F 71 16 107/47 L 96 05/10/21 23:55 98.1 F 65 16 115/62 93 05/10/21 23:20 57 L PG Care Time/CCT Total # of Minutes Spent Total Time Spent with Patient: Total time spent is greater than 50% in coordination of care (as documented) at patient's floor/unit and/or counseling patient: Coding Level of Care Code 31497 Subseq Hosp Care Lvl 3 Diagnoses Acute heart failure with preserved ejection fraction I50.31 CAD in [place] artery I25.10 S/P CABG (coronary artery bypass graft) Z95.1 Persistent atrial fibrillation I48.19 Hypertension I10 Dyslipidemia E78.5
[2021-05-11 10:44] LABS: BUN Creatinine Ratio 28.4 (10-20); Calcium 11.2 mg/dl (8.5-10.1); Creatinine Clr Calc Pharmacy 56.6 ml/min; Est GFR (African American) 80.9 ml/min; Est GFR (Non-African American) 69.8 ml/min; Potassium 3.9 mmol/L (3.5-5.1)
[2021-05-11] MEDS ORDERED: CHLOROTHIAZIDE SODIUM 500 MG in DEXTROSE 5% 50 ML IV SCH (16:30)
[2021-05-11] MEDS ORDERED: CHLOROTHIAZIDE SODIUM 250 MG in DEXTROSE 5% 50 ML IV SCH (16:30)
--- NOTE | 2021-05-11 18:02 | Hospitalist Progress Note ---
Date of Service May 11, 2021 Assessment & Plan (1) Acute heart failure with preserved ejection fraction: Plan: Pt is an 80 year old male presenting to the hospital for CHF exacerbation. Pt is s/p CABG 1 month ago. (1) Acute heart failure with preserved ejection fraction: -Physical exam showing no real improvement from yesterday, still evidence of fluid overload. Breathing is stable. -I&O's showed +427 mL over 24 hours. These may not be accurate as his is i ncontinent and urinates in bed and on floor sometimes. -echo 05/05/21: EF 55-60%, mild concentric LVH, mild to moderate mitral regurge, moderate tricuspid regurge, nonsignificant changes from echo 02/21/21 -On 3 mg Bumex BID. Received 200mg chlorothiazide prior to bumex -Strict I&Os and daily weights. Continue heart healthy DM2 diet. -Monitor renal function and electrolytes closely. --> BUN, Creatinine, K WNL. (2) Hypercapnia -Pt still refuses bipap -Emphasized importance of bipap to patient to reduce CO2 retention (3) Persistent atrial fibrillation: -continue metoprolol succinate 25 mg bid for rate control and eliquis for anticoagulation (4) S/P CABG (coronary artery bypass graft): - No angina pectoris. - continue Metoprolol succinate 25 mg bid - Continue Atorvastatin 40 mg daily. - Cardio recommends cardiac rehab following discharge. (5) C. difficile diarrhea: - c. diff toxin and gene were positive. Hx. recurrent c. diff -Stools are solid today. cont PO vancomycin -when discharged, recurrent c. diff total dosing: vancomycin 125mg PO q6h x10-14 days, then 125mg PO q12h x7 days, then 125 PO qd x 7 days, then 125mg PO q2-3 days x2-8 weeks FENa: heart healthy DM2 diet Code Status: full DVT PPX: eliquis PT/OT: ordered, seen by PT/OT, recommend snf Case Management: [facility] has bed available tomorrow if discharged Admission and Anticipated Discharge Date Admission Date: May 02, 2021 Supervising Physician Co-Signing Physician Notes Resident Physician Supervision Note: I independently interviewed and examined the patient and verified the shankar history and physical, reviewed labs and image studies and agree with resident Dr. Kimbrough findings and care plan. Subjective Patient was seen this morning sitting in the chair. Pt is very pleasant this morning. He states that he is doing well and is having no difficulty with breathing. He states that he thinks the swelling on his legs appear better than yesterday and are not as painful. He also seems to think that he was urinating more yesterday than he has been. He is wondering when he will be able to be discharged. At this time it was asked if he wore oxygen at home and he states that he does not. He claims he has never used a CPAP at home and has never had a sleep study. Pt also expresses that his bowel movement yesterday was solid which is an improvement from the day prior. Pt has no complaints at this time. Review of Systems Review of Systems: All systems reviewed & are unremarkable except as noted in HPI & below Physical Exam Constitutional: WD/WN, vitals as above well nourished, cooperative and comfortable Eyes: PERRL, conjunctivae normal, anicteric sclerae + anicteric sclerae Neck: trachea midline, no thyromegaly Respiratory: normal respiratory effort, lungs clear to auscultation Cardiovascular: RRR, no murmur, no edema Rate/Rhythm: regular rate and regular rhythm Heart Sounds: normal S1 and normal S2 Extremities: + edema (2+ b/l pitting edema) Gastrointestinal (Abdomen): normal bowel sounds, soft, nontender, no hepatosplenomegaly Skin: no rashes, warm and dry + scar (on chest from CABG) Psychiatric: A+Ox3, euthymic affect Orientation: alert, oriented to person, oriented to place and oriented to time Results & Data Results & Data ([facility]) Vital Signs (Past 12 Hours) Vital Signs Temp Pulse Pulse Resp BP Pulse Ox 05/11/21 11:26 37.0 C 78 20 132/75 92 05/11/21 08:00 90 05/11/21 07:26 36.9 C 67 20 114/53 L 97
[2021-05-11] MEDS: TAMSULOSIN HCL 0.4 MG CAP PO SCH (20:37)
[2021-05-12] MEDS: LEVOTHYROXINE SODIUM 75 MCG TABLET PO SCH (06:43)
[2021-05-12] MEDS: VANCOMYCIN HCL 250 MG/5 ML SOLN PO SCH ×3 (06:43→17:11)
[2021-05-12] MEDS: RASPBERRY SYRUP 5 ML UDP PO SCH ×3 (06:43→17:12)
[2021-05-12 07:03] LABS: Hemoglobin 8.5 g/dL (14.0-18.0); Mean Corpuscular Hemoglobin 32.1 pg (25-34); Mean Corpuscular Hgb Conc 30.4 g/dL (32-36); Mean Corpuscular Volume 105.7 fL (80-100); Mean Platelet Volume 8.6 fL (7.4-10.4); Platelet Count 239 K/uL (130-400); RDW Standard Deviation 61.5 fL (36.4-46.3); Red Blood Count 2.65 M/uL (4.7-6.1); White Blood Count 5.58 K/uL (4.8-10.8)
[2021-05-12 07:53] LABS: BUN Creatinine Ratio 25.4 (10-20); Calcium 11.2 mg/dl (8.5-10.1); Creatinine Clr Calc Pharmacy 53.5 ml/min; Est GFR (African American) 75.4 ml/min; Potassium 3.6 mmol/L (3.5-5.1)
[2021-05-12] MEDS: INSULIN ASPART 100 UNITS/ML 3 ML PEN SC SCH ×4 (08:38→21:36)
[2021-05-12] MEDS: CYANOCOBALAMIN (VITAMIN B-12) 2,500 MCG TAB.SUBL SL SCH (08:43)
[2021-05-12] MEDS: FERROUS SULFATE 325 MG TAB PO SCH ×3 (08:44→21:30)
[2021-05-12] MEDS: POTASSIUM CHLORIDE CRTAB 20 MEQ TABCR PO SCH ×2 (08:44→21:30)
[2021-05-12] MEDS: MULTIVITAMIN TAB PO SCH (08:44)
[2021-05-12] MEDS: SACCHAROMYCES BOULARDII 250 MG CAP PO SCH (08:44)
[2021-05-12] MEDS: PANTOprazole 40 MG TAB PO SCH (08:44)
[2021-05-12] MEDS: ATORVASTATIN 40 MG TAB PO SCH (08:45)
[2021-05-12] MEDS ORDERED: CHLOROTHIAZIDE SODIUM 250 MG in DEXTROSE 5% 50 ML IV ONE (08:45)
[2021-05-12] MEDS: METOPROLOL SUCC 25MG EXT REL TAB PO SCH ×2 (08:45→21:30)
[2021-05-12] MEDS: APIXABAN 5 MG TABLET PO SCH ×2 (08:46→21:30)
[2021-05-12] MEDS: ASPIRIN 81 MG ECTAB PO SCH (08:46)
[2021-05-12] MEDS: CHOLECALCIFEROL 1,000 UNITS 25 MCG TAB PO SCH (08:47)
[2021-05-12] MEDS: BUMETANIDE 4 MG in SYRINGE 0 ML IV SCH ×2 (09:40→17:12)
--- NOTE | 2021-05-12 10:50 | Hospitalist Progress Note ---
Date of Service May 12, 2021 Assessment & Plan (1) Acute heart failure with preserved ejection fraction: Plan: Pt is an 80 year old male presenting to the hospital for CHF exacerbation. Pt is s/p CABG 1 month ago. (1) Acute heart failure with preserved ejection fraction: -Physical exam showing no real improvement from yesterday, still evidence of fluid overload. Breathing is stable. -echo 05/05/21: EF 55-60%, mild concentric LVH, mild to moderate mitral regurge, moderate tricuspid regurge, nosignificant changes from echo 02/21/21 -I&O's showed -261 mL over 24 hours. These may not be accurate as his is incontinent and urinates in bed and on floor sometimes. -Bumex 3 mg BID changed to 4 mg BID. Received 200mg chlorothiazide prior to bumex -Strict I&Os and daily weights. Continue heart healthy DM2 diet. -Monitor renal function and electrolytes closely. --> BUN, Creatinine, K WNL. Hypoxia -requiring 2L NC. -sec to fluid overload/atelectasis. -continue diuresis and add incentive spirometer (2) Hypercapnia -Pt still refuses bipap -Emphasized importance of bipap to patient to reduce CO2 retention (3) Persistent atrial fibrillation: -continue metoprolol succinate 25 mg bid for rate control and eliquis for anticoagulation (4)Sacral Ulcer -Stage 1 measuring 3.5 cm in diameter. -Being covered with clear film and frequent position changes. (5) S/P CABG (coronary artery bypass graft): - No angina pectoris. - continue Metoprolol succinate 25 mg bid - Continue Atorvastatin 40 mg daily. - Cardio recommends cardiac rehab following discharge. (6) C. difficile diarrhea: - c. diff toxin and gene were positive. Hx. recurrent c. diff -Stools are solid today. cont PO vancomycin -when discharged, recurrent c. diff total dosing: vancomycin 125mg PO q6h x10-14 days, then 125mg PO q12h x7 days, then 125 PO qd x 7 days, then 125mg PO q2-3 days x2-8 weeks FENa: heart healthy DM2 diet Code Status: full DVT PPX: eliquis PT/OT: ordered, seen by PT/OT, recommend snf Case Management: [facility] re[facility] has bed available if discharged Admission and Anticipated Discharge Date Admission Date: May 02, 2021 Supervising Physician Co-Signing Physician Notes Resident Physician Supervision Note: I independently interviewed and examined the patient and verified the shankar history and physical, reviewed labs and image studies and agree with resident Dr. Kimbrough findings and care plan. Subjective Patient was seen this morning sitting in the chair. Pt is very pleasant this morning. He states that he is doing well and is having no difficulty with breathing. He is curious about whether or not he is going to be discharged. He states that he thinks the swelling on his legs appear better than yesterday. He reports that his lower back is uncomfortable and is asking for help with adjusting his sitting position. Pt has no other complaints today. Reports BM yesterday, but none today. Review of Systems Review of Systems: All systems reviewed & are unremarkable except as noted in HPI & below Physical Exam Constitutional: WD/WN, vitals as above well nourished, cooperative and comfortable Eyes: PERRL, conjunctivae normal, anicteric sclerae + anicteric sclerae Neck: trachea midline, no thyromegaly Respiratory: normal respiratory effort, lungs clear to auscultation Cardiovascular: RRR, no murmur, no edema Rate/Rhythm: regular rate and regular rhythm Heart Sounds: normal S1 and normal S2 Extremities: + edema (2+ b/l pitting edema) Gastrointestinal (Abdomen): normal bowel sounds, soft, nontender, no hepatosplenomegaly Skin: + ulcer (Stage 1 pressure ulcer in the superior gluteal cleft measuring 3.5 cm) and + scar (on chest from CAB) Psychiatric: A+Ox3, euthymic affect Orientation: alert, oriented to person, oriented to place and oriented to time Results & Data Results & Data ([facility]) Vital Signs (Past 12 Hours) Vital Signs Temp Pulse Pulse Resp BP Pulse Ox 05/12/21 08:00 36.5 C 57 L 82 24 141/69 H 96 05/12/21 03:21 36.8 C 79 24 138/76 91 05/11/21 23:50 36.8 C 74 20 141/77 H 90
--- NOTE | 2021-05-12 15:31 | Cardiology Progress Note ---
Date of Service May 12, 2021 Assessment & Plan (1) Acute heart failure with preserved ejection fraction: (2) CAD in [place] artery: (3) S/P CABG (coronary artery bypass graft): (4) Persistent atrial fibrillation: (5) Hypertension: (6) Dyslipidemia: Plan: ASSESSMENT/PLAN: 1. Acute HFpEF (Heart failure with preserved EF): Unfortunately, he remains hypervolemic on exam. Remains on supplemental O2. He does not require O2 at home. 2Step planned prior to discharge. He was transitioned from Lasix to Bumex 3 mg IV b.i.d. He was given another dose of Diuril yesterday afternoon. Bumex increased to 4 mg IV BID earlier this am with an additional dose of Diuril. As long as kidney function and BP remains stable would continue the Diuril. Could consider BID dosing or increasing to 500 mg if more aggressive diuresis required. Continue to follow labs closely. Given continued need for potassium supplementation, consider spironolactone 25 mg daily. Will defer potassium supplementation to primary service. Monitor electrolytes and renal function closely. Continue to follow with heart failure program on discharge. High risk for readmission, especially if we are not able to fully optimize him. Palliative care discussion would be beneficial to discuss goals of care and code status. Low-sodium diet, less than 2000 mg daily. Strict I&Os and daily weights. LV systolic function is normal. 2. CAD s/p CABG x 3: No angina. Continue beta-hari. Had been on ARB in the past but was discontinued following hospitalization at [facility]. Continue high- intensity statin therapy. Recommend cardiac rehab on discharge. 3. Atrial fibrillation s/p cardioversion (05/05/21): Developed postoperative atrial fibrillation following CABG. He was successfully converted to sinus rhythm but once again in atrial fibrillation. Amiodarone has been discontinued. Rate currently well controlled. Can titrate beta-hari as needed for rate control strategy. Continue anticoagulation for stroke risk reduction. 4. Hypertension: Blood pressure acceptable. Adjustment in diuretic as above. 5. Dyslipidemia: Continue high-intensity statin therapy. 6. Hypokalemia and Hypo magnesemia: Monitor and supplement as per primary service. 7. C diff diarrhea: Improved. Treatment as per primary service. 8. Lower extremity edema: Increase diuretic regimen as above. Encourage elevation. Consider compression wraps? Disposition: Patient care discussed with primary hospitalist service, Dr. Garcia and Dr. Adler. [place] once medically stable for discharge. Admission and Anticipated Discharge Date Admission Date: May 02, 2021 Subjective Patient was seen this morning- he was sitting in the bedside chair. He seems more alert. He's frustrated to be urinating so much due to his incontinence. He denies shortness of breath, chest pain, syncope, near-syncope. It appears that his lower extremity edema is stable. He has not had any further diarrhea. He admits that he is having at least 1 episode of urinary incontinence per day. He notes they were able to measure through the night and most of this morning's output? Kidney function remains stable. Bumex was increased to 4 mg BID IV and he was given another dose of Diuril this am. Weight is 192 lb this am on the standing scale. Physical Exam Physical Exam: Gen.: No acute distress. More alert. HEENT: Anicteric sclera. Neck: Mild JVD. Cardiac: PMI was nonpalpable. No ventricular heave. Regular. Normal S1-S2. 1/6 early peaking systolic ejection murmur best heard at the right upper sternal border. No rubs or gallops. Pulmonary: Clear to auscultation bilaterally without wheezes, rales, or rhonchi. Abdomen: Soft, nontender, nondistended, with normoactive bowel sounds. No bruits noted. Extremities: 2-3+ bilateral pitting edema to the knees with 1-2+ pitting edema from the knees to the hips. No cyanosis. Psychiatric: Affect appears appropriate. Chest: Sternotomy site is clean, dry, and intact without erythema or discharge. Results & Data ([facility]) Vital Signs (Past 12 Hours) Vital Signs Temp Pulse Pulse Resp BP Pulse Ox 05/12/21 11:00 97.5 F L 68 22 139/73 96 05/12/21 08:00 97.7 F 57 L 82 24 141/69 H 96 PG Care Time/CCT Total # of Minutes Spent Total Time Spent with Patient: Total time spent is greater than 50% in coordination of care (as documented) at patient's floor/unit and/or counseling patient: Coding Level of Care Code 72209 Subseq Hosp Care Lvl 3 Diagnoses Acute heart failure with preserved ejection fraction I50.31 CAD in [place] artery I25.10 S/P CABG (coronary artery bypass graft) Z95.1 Persistent atrial fibrillation I48.19 Hypertension I10 Dyslipidemia E78.5
[2021-05-12] MEDS: TAMSULOSIN HCL 0.4 MG CAP PO SCH (21:30)
[2021-05-13] MEDS: VANCOMYCIN HCL 250 MG/5 ML SOLN PO SCH
[2021-05-13] MEDS: LEVOTHYROXINE SODIUM 75 MCG TABLET PO SCH (06:05)
[2021-05-13] MEDS: RASPBERRY SYRUP 5 ML UDP PO SCH ×5 (06:13→19:39)
[2021-05-13 06:38] LABS: Hemoglobin 8.4 g/dL (14.0-18.0); Mean Corpuscular Hemoglobin 31.8 pg (25-34); Mean Corpuscular Volume 106.1 fL (80-100); Mean Platelet Volume 8.2 fL (7.4-10.4); Platelet Count 222 K/uL (130-400); RDW Coefficient of Variation 16.1 % (11.5-14.5); RDW Standard Deviation 62.3 fL (36.4-46.3); Red Blood Count 2.64 M/uL (4.7-6.1); White Blood Count 5.45 K/uL (4.8-10.8)
[2021-05-13 07:17] LABS: BUN Creatinine Ratio 32.2 (10-20); Calcium 11.1 mg/dl (8.5-10.1); Creatinine Clr Calc Pharmacy 57.4 ml/min; Est GFR (African American) 82.9 ml/min; Est GFR (Non-African American) 71.5 ml/min; Potassium 4.4 mmol/L (3.5-5.1)
[2021-05-13] MEDS: BUMETANIDE 4 MG in SYRINGE 0 ML IV SCH ×2 (09:01→18:16)
[2021-05-13] MEDS: VANCOMYCIN HCL 125 MG/2.5ML SOLN PO SCH ×3 (09:01→19:40)
[2021-05-13] MEDS: INSULIN ASPART 100 UNITS/ML 3 ML PEN SC SCH ×4 (09:01→20:30)
[2021-05-13] MEDS: PANTOprazole 40 MG TAB PO SCH (09:02)
[2021-05-13] MEDS: METOPROLOL SUCC 25MG EXT REL TAB PO SCH ×2 (09:02→20:23)
[2021-05-13] MEDS: ASPIRIN 81 MG ECTAB PO SCH (09:02)
[2021-05-13] MEDS: APIXABAN 5 MG TABLET PO SCH ×2 (09:02→20:24)
[2021-05-13] MEDS: ATORVASTATIN 40 MG TAB PO SCH (09:02)
[2021-05-13] MEDS: CHOLECALCIFEROL 1,000 UNITS 25 MCG TAB PO SCH (09:02)
[2021-05-13] MEDS: POTASSIUM CHLORIDE CRTAB 20 MEQ TABCR PO SCH ×2 (09:02→20:23)
[2021-05-13] MEDS: CYANOCOBALAMIN (VITAMIN B-12) 2,500 MCG TAB.SUBL SL SCH (09:03)
[2021-05-13] MEDS: FERROUS SULFATE 325 MG TAB PO SCH ×3 (09:03→20:23)
[2021-05-13] MEDS: MULTIVITAMIN TAB PO SCH (09:03)
[2021-05-13] MEDS: SACCHAROMYCES BOULARDII 250 MG CAP PO SCH (09:03)
--- NOTE | 2021-05-13 14:33 | Cardiology Progress Note ---
Date of Service May 13, 2021 Assessment & Plan (1) Acute heart failure with preserved ejection fraction: (2) CAD in [place] artery: (3) S/P CABG (coronary artery bypass graft): (4) Persistent atrial fibrillation: (5) Hypertension: (6) Dyslipidemia: Plan: ASSESSMENT/PLAN: 1. Acute HFpEF (Heart failure with preserved EF): Remains hypervolemic but weight is trending downward. Fluid balance is not accurate as he continues to have episodes of urinary incontinence. He believes he is urinating more on current diuretic regimen. Can continue Bumex 4 mg IV b.i.d.. He has received intermittent doses of diarrheal 250 mg. BUN is trending upward, and bicarb level is more elevated today. Monitor electrolytes and renal function closely. Continue to follow with heart failure program, [place]omin[place]. Low-sodium diet, less than 2000 mg daily. Strict I&Os and daily weights. LV systolic function is normal. 2. CAD s/p CABG x 3: Denies angina. Continue beta-hari. Had been on ARB in the past but was discontinued [place] [facility] [place] Continue high- intensity statin therapy. Recommend cardiac rehab on discharge. 3. Atrial fibrillation s/p cardioversonin (05/05/21): Developed postoperative atrial fibrillation following CABG. He was successfully converted to sinus rhythm but once again in atrial fibrillation. Amiodarone has been discontinued. Heart rate adequately controlled. Continue beta-hari for rate control strategy. Continue anticoagulation for stroke risk reduction. 4. Hypertension: Blood pressure acceptable. No changes made today. 5. Dyslipidemia: Continue high-intensity statin therapy. 6. Hypokalemia and Hypo magnesemia: Has been monitored and supplemented as per primary service. 7. C diff diarrhea: Improved. As per primary service. 8. Disposition: Patient care discussed with primary hospitalist service, Dr. Garcia. Will continue to follow. Admission and Anticipated Discharge Date Admission Date: May 02, 2021 Subjective He denies chest pain, shortness of breath, syncope, palpitations, or bleeding. He believes that his edema has improved. He would like to go home soon. He continues to have episodes of urinary incontinence. He states that he is urinating much more frequently over the past day than he had been. He was unaccompanied in his hospital room.. Review of systems: As above. Physical Exam Physical Exam: Gen.: No acute distress. Alert. HEENT: Anicteric sclera. Neck: No JVD or hepatic jugular reflux noted today. Cardiac: Irregularly irregular. Normal heart rate. Normal S1-S2. 1/6 early peaking systolic ejection murmur best heard at the right upper sternal border. No rubs or gallops. Pulmonary: Clear to auscultation bilaterally without wheezes, rales, or rhonchi. Abdomen: Soft, nontender, nondistended, with normoactive bowel sounds. No bruits noted. Extremities: 2+ radial pulses bilaterally. 2+ posterior tibialis pulses bilaterally. 3+ bilateral pitting edema to the knees with 1+ pitting edema from the knees to the hips. No cyanosis. Psychiatric: Affect appears appropriate. Results & Data ([facility]) Vital Signs (Past 12 Hours) Vital Signs Temp Pulse Pulse Resp BP Pulse Ox 05/13/21 12:25 72 05/13/21 11:54 120/70 90 05/13/21 11:52 37.0 C 81 20 85 L 05/13/21 07:25 36.6 C 59 L 20 103/60 98 05/13/21 03:49 36.7 C 73 17 110/64 98 05/13/21 03:21 36.5 C 60 22 135/65 95 Intake & Output 05/11/21 05/12/21 05/13/21 05/14/21 06:59 06:59 06:59 06:59 Intake Total 480 / 480 839 / 839 1559 / 1559 240 / 240 Output Total 1074 / 1074 351 / 351 1050 / 1050 2 / 2 Balance -594 / -594 488 / 488 509 / 509 238 / 238 Weight 191 lb 12.835 oz 192 lb 3.889 oz 189 lb 6.033 oz Laboratory Results Laboratory Results - last 24 hr 05/12/21 05/12/21 05/13/21 16:37 20:52 06:05 WBC 5.45 RBC 2.64 L Hgb 8.4 L Hct 28.0 L MCV 106.1 H MCH 31.8 MCHC 30.0 L RDW Std Deviation 62.3 H RDW Coeff of Savi 16.1 H Plt Count 222 MPV 8.2 Sodium Potassium Chloride Carbon Dioxide Anion Gap BUN Creatinine Est Cr Clr Drug Dosing Est GFR ( Amer) Est GFR (Non-Af Amer) BUN/Creatinine Ratio Glucose POC Glucose 151 H 148 H Calcium 05/13/21 05/13/21 05/13/21 06:05 07:21 11:50 WBC RBC Hgb Hct MCV MCH MCHC RDW Std Deviation RDW Coeff of Savi Plt Count MPV Sodium 138 Potassium 4.4 D Chloride 95 L Carbon Dioxide 47 H* Anion Gap -3.0 L BUN 31 H Creatinine 0.98 Est Cr Clr Drug Dosing 57.4 Est GFR ( Amer) 82.9 Est GFR (Non-Af Amer) 71.5 BUN/Creatinine Ratio 32.2 H Glucose 142 H POC Glucose 134 H 161 H Calcium 11.1 H Diagnostic Findings Telemetry personally reviewed: Atrial fibrillation. Heart rate has been adequately controlled. Medications Administered Current Inpatient Medications Acetaminophen (Acetaminophen 325 Mg Tab) 650 mg PO Q6H PRN PRN Reason: Pain Stop: 06/06/21 14:26 Last Admin: 05/09/21 17:22 Dose: 650 mg Documented by: Apixaban (Apixaban 5 Mg Tablet) 5 mg PO BID [facility] Stop: 06/01/21 20:59 Last Admin: 05/13/21 09:02 Dose: 5 mg Documented by: Aspirin (Aspirin 81 Mg Ectab) 81 mg PO DAILY [facility] Stop: 06/02/21 08:59 Last Admin: 05/13/21 09:02 Dose: 81 mg Documented by: Atorvastatin Calcium (Atorvastatin 40 Mg Tab) 40 mg PO QAM [facility] Stop: 06/02/21 08:59 Last Admin: 05/13/21 09:02 Dose: 40 mg Documented by: Cyanocobalamin (Cyanocobalamin (Vitamin B-12) 2,500 Mcg Tab.Subl) 5,000 mcg SL DAILY [facility]IO Stop: 06/02/21 08:59 Last Admin: 05/13/21 09:03 Dose: 5,000 mcg Documented by: Dextrose (Dextrose 50% 50 Ml Syringe) 25 - 50 ml IV UD PRN; Protocol PRN Reason: Hypoglycemia Protocol Stop: 06/02/21 01:14 Ferrous Sulfate (Ferrous Sulfate 325 Mg Tab) 325 mg PO TID [facility]IO Stop: 06/01/21 20:59 Last Admin: 05/13/21 09:03 Dose: 325 mg Documented by: Glucagon (Glucagon For Inj 1 Mg Vial) 1 mg SQ UD PRN; Protocol PRN Reason: Hypoglycemia Protocol Stop: 06/02/21 01:14 Glucose (Glucose 40% Gel 15 Gm Tube) 15 - 30 gm PO UD PRN; Protocol PRN Reason: Hypoglycemia Protocol Stop: 06/02/21 01:14 Glucose (Glucose 10 Tabs/Tube) 4 - 8 tabs PO UD PRN; Protocol PRN Reason: Hypoglycemia Protocol Stop: 06/02/21 01:14 Bumetanide 4 mg/ Syringe 16 mls @ 4 mls/min IV BID@0900,1700 [facility] Stop: 06/11/21 09:14 Last Admin: 05/13/21 09:01 Dose: 4 mls/min Documented by: Insulin Aspart (Insulin Aspart 100 Units/Ml 3 Ml Pen) 0 units SC ACHS [facility]; Protocol Stop: 06/02/21 01:59 Last Admin: 05/13/21 12:54 Dose: 1 units Documented by: Levothyroxine Sodium (Levothyroxine Sodium 75 Mcg Tablet) 75 mcg PO DAILYBB [facility] Stop: 06/02/21 06:29 Last Admin: 05/13/21 06:05 Dose: 75 mcg Documented by: Melatonin (Melatonin 3 Mg Tab) 9 mg PO HS PRN PRN Reason: Sleep Stop: 06/01/21 20:43 Metoprolol Succinate (Metoprolol Succ 25mg Ext Rel Tab) 25 mg PO BID [facility]IO Stop: 06/09/21 20:59 Last Admin: 05/13/21 09:02 Dose: 25 mg Documented by: Miscellaneous (Carbohydrates For Hypoglycemia ) 15 - 30 gm PO UD PRN PRN Reason: Hypoglycemia Treatment Stop: 06/02/21 01:14 Multivitamins (Multivitamin Tab) 1 tab PO DAILY [facility] Stop: 06/02/21 08:59 Last Admin: 05/13/21 09:03 Dose: 1 tab Documented by: Pantoprazole Sodium (Pantoprazole 40 Mg Tab) 40 mg PO DAILY [facility] Stop: 06/02/21 08:59 Last Admin: 05/13/21 09:02 Dose: 40 mg Documented by: Potassium Chloride (Potassium Chloride Crtab 20 Meq Tabcr) 20 meq PO BID [facility] Stop: 06/12/21 20:59 Raspberry (Raspberry Syrup 5 Ml Udp) 5 ml PO Q6 [facility] Stop: 05/27/21 00:00 Last Admin: 05/13/21 12:39 Dose: 5 ml Documented by: Saccharomyces Boulardii (Saccharomyces Boulardii 250 Mg Cap) 250 mg PO DAILY [facility] Stop: 06/02/21 08:59 Last Admin: 05/13/21 09:03 Dose: 250 mg Documented by: Tamsulosin HCl (Tamsulosin Hcl 0.4 Mg Cap) 0.8 mg PO HS [facility] Stop: 06/01/21 20:59 Last Admin: 05/12/21 21:30 Dose: 0.8 mg Documented by: Vancomycin HCl (Vancomycin Hcl 125 Mg/2.5ml Soln) 125 mg PO Q6 [facility] Stop: 05/23/21 06:29 Last Admin: 05/13/21 12:39 Dose: 125 mg Documented by: Vitamin D (Cholecalciferol 1,000 Units 25 Mcg Tab) 1,000 units PO DAILY [facility] Stop: 06/02/21 08:59 Last Admin: 05/13/21 09:02 Dose: 1,000 units Documented by: PG Care Time/CCT Total # of Minutes Spent Total Time Spent with Patient: Total time spent is greater than 50% in coordination of care (as documented) at patient's floor/unit and/or counseling patient: Coding Level of Care Code 13322 Subseq Hosp Care Lvl 3 Diagnoses Acute heart failure with preserved ejection fraction I50.31 CAD in [place] artery I25.10 S/P CABG (coronary artery bypass graft) Z95.1 Persistent atrial fibrillation I48.19 Hypertension I10 Dyslipidemia E78.5
--- NOTE | 2021-05-13 14:42 | Hospitalist Progress Note ---
Date of Service May 13, 2021 Assessment & Plan (1) Acute heart failure with preserved ejection fraction: Plan: Pt is an 80 year old male presenting to the hospital for CHF exacerbation. Pt is s/p CABG 1 month ago. (1) Acute heart failure with preserved ejection fraction: -Physical exam showing slight improvement from yesterday, still evidence of fluid overload. Breathing is stable. -echo 05/05/21: EF 55-60%, mild concentric LVH, mild to moderate mitral regurge, moderate tricuspid regurge, nosignificant changes from echo 02/21/21 -Bumex 4mg IV BID. Received 250mg chlorothiazide prior to bumex. -I&O's showed +540mL over 24 hours. These may not be accurate as his is incontinent and urinates in bed and on floor sometimes. 1.3 kg weight loss in 24 hours. -Strict I&Os and daily weights. Continue heart healthy DM2 diet. -Monitor renal function and electrolytes closely. --> BUN, Creatinine, K WNL. K 3.6-->4.4 over 24 hours. Supplemental K changed from 40meq BID to 20meq BID. (2) Hypercapnia -Pt still refuses bipap -Emphasized importance of bipap to patient to reduce CO2 retention (3) Persistent atrial fibrillation: -continue metoprolol succinate 25 mg bid for rate control and eliquis for anticoagulation (4)Sacral Ulcer -Stage 1 measuring 3.5 cm in diameter, continue to monitor. -Being covered with clear film and frequent position changes. (5) S/P CABG (coronary artery bypass graft): - No angina pectoris. - continue Metoprolol succinate 25 mg bid - Continue Atorvastatin 40 mg daily. - Cardio recommends cardiac rehab following discharge. (6) C. difficile diarrhea: - c. diff toxin and gene were positive. Hx. recurrent c. diff -Stools are solid today. cont PO vancomycin -when discharged, recurrent c. diff total dosing: vancomycin 125mg PO q6h x10-14 days, then 125mg PO q12h x7 days, then 125 PO qd x 7 days, then 125mg PO q2-3 days x2-8 weeks FENa: heart healthy DM2 diet Code Status: full DVT PPX: eliquis PT/OT: ordered, seen by PT/OT, recommend snf Case Management: [place] [facility] has bed available if discharged Admission and Anticipated Discharge Date Admission Date: May 02, 2021 Supervising Physician Co-Signing Physician Notes Resident Physician Supervision Note: I independently interviewed and examined the patient and verified the shankar history and physical, reviewed labs and image studies and agree with resident Dr. Kimbrough findings and care plan. Subjective Patient is an 80-year-old male seen at bedside this morning. Patient is pleasant as usual. Patient states that his lower back has been causing him some discomfort due to an ulcer that was discovered yesterday. After it had been covered with clear film, the pain had mildly improved. Today he states that he is doing well and has no complaints. Reports breathing well, no chest pain, no shortness of breath, and increased urination since yesterday. Bumex was changed from 3 mg IV twice daily to 4 mg IV twice daily. Patient is also receiving 250 mg of chlorothiazide prior to being given Bumex. Patient appears to have had over 1 kg of weight loss over the past 24 hours. Patient states that his stools still remain solid. Reports no blood in stool. Patient is beginning to get anxious about being discharged. Patient has no other complaints at this time. Review of Systems Review of Systems: All systems reviewed & are unremarkable except as noted in HPI & below Physical Exam Constitutional: WD/WN, vitals as above well nourished, cooperative and comfortable Eyes: PERRL, conjunctivae normal, anicteric sclerae + anicteric sclerae Neck: trachea midline, no thyromegaly Respiratory: normal respiratory effort, lungs clear to auscultation Cardiovascular: RRR, no murmur, no edema Rate/Rhythm: regular rate and regular rhythm Heart Sounds: normal S1 and normal S2 Extremities: + edema (2+ b/l pitting edema) Gastrointestinal (Abdomen): normal bowel sounds, soft, nontender, no hepatosplenomegaly Skin: no rashes, warm and dry + ulcer (Stage 1 pressure ulcer in the superior gluteal cleft measuring 3.5 cm) and + scar (on chest from CAB) Psychiatric: A+Ox3, euthymic affect Orientation: alert, oriented to person, oriented to place and oriented to time Results & Data Results & Data ([facility]) Vital Signs (Past 12 Hours) Vital Signs Temp Pulse Pulse Resp BP Pulse Ox 05/13/21 12:25 72 05/13/21 11:54 120/70 90 05/13/21 11:52 37.0 C 81 20 85 L 05/13/21 07:25 36.6 C 59 L 20 103/60 98 05/13/21 03:49 36.7 C 73 17 110/64 98 05/13/21 03:21 36.5 C 60 22 135/65 95
[2021-05-13] MEDS: TAMSULOSIN HCL 0.4 MG CAP PO SCH (20:23)
[2021-05-14] MEDS: LEVOTHYROXINE SODIUM 75 MCG TABLET PO SCH (05:42)
[2021-05-14] MEDS: RASPBERRY SYRUP 5 ML UDP PO SCH ×5 (05:43→23:08)
[2021-05-14] MEDS: VANCOMYCIN HCL 125 MG/2.5ML SOLN PO SCH ×5 (05:44→23:08)
[2021-05-14 06:59] LABS: Hematocrit (blood only) 28.1 % (42-52); Hemoglobin 8.2 g/dL (14.0-18.0); Mean Corpuscular Hemoglobin 31.7 pg (25-34); Mean Corpuscular Hgb Conc 29.2 g/dL (32-36); Mean Corpuscular Volume 108.5 fL (80-100); Mean Platelet Volume 8.3 fL (7.4-10.4); Platelet Count 220 K/uL (130-400); RDW Coefficient of Variation 16.2 % (11.5-14.5); RDW Standard Deviation 63.5 fL (36.4-46.3); Red Blood Count 2.59 M/uL (4.7-6.1); White Blood Count 5.02 K/uL (4.8-10.8)
[2021-05-14 07:26] LABS: BUN Creatinine Ratio 26.9 (10-20); Calcium 10.5 mg/dl (8.5-10.1); Creatinine Clr Calc Pharmacy 53.8 ml/min; Est GFR (African American) 77.1 ml/min; Est GFR (Non-African American) 66.6 ml/min; Potassium 4.5 mmol/L (3.5-5.1)
[2021-05-14] MEDS: ASPIRIN 81 MG ECTAB PO SCH (08:45)
[2021-05-14] MEDS: POTASSIUM CHLORIDE CRTAB 20 MEQ TABCR PO SCH ×2 (08:45→21:06)
[2021-05-14] MEDS: BUMETANIDE 4 MG in SYRINGE 0 ML IV SCH ×2 (08:45→17:23)
[2021-05-14] MEDS: MULTIVITAMIN TAB PO SCH (08:46)
[2021-05-14] MEDS: SACCHAROMYCES BOULARDII 250 MG CAP PO SCH (08:46)
[2021-05-14] MEDS: METOPROLOL SUCC 25MG EXT REL TAB PO SCH ×2 (08:46→21:06)
[2021-05-14] MEDS: FERROUS SULFATE 325 MG TAB PO SCH ×3 (08:47→21:05)
[2021-05-14] MEDS: PANTOprazole 40 MG TAB PO SCH (08:47)
[2021-05-14] MEDS: CHOLECALCIFEROL 1,000 UNITS 25 MCG TAB PO SCH (08:47)
[2021-05-14] MEDS: APIXABAN 5 MG TABLET PO SCH ×2 (08:48→21:06)
[2021-05-14] MEDS: CYANOCOBALAMIN (VITAMIN B-12) 2,500 MCG TAB.SUBL SL SCH (08:48)
[2021-05-14] MEDS: ATORVASTATIN 40 MG TAB PO SCH (08:48)
[2021-05-14] MEDS: INSULIN ASPART 100 UNITS/ML 3 ML PEN SC SCH ×4 (08:49→20:59)
--- NOTE | 2021-05-14 10:03 | Cardiology Progress Note ---
Date of Service May 14, 2021 Assessment & Plan (1) Acute heart failure with preserved ejection fraction: (2) CAD in [place] artery: (3) S/P CABG (coronary artery bypass graft): (4) Persistent atrial fibrillation: (5) Hypertension: (6) Dyslipidemia: Plan: ASSESSMENT/PLAN: 1. Acute HFpEF (Heart failure with preserved EF): Significant improvement today compared to yesterday both on exam and with weight loss. Continue current regimen of Bumex 4 mg IV twice daily. Fluid balance is not accurate as he continues to have episodes of urinary incontinence. Monitor electrolytes and renal function closely. Continue to follow with heart failure program, Ill[place]. Low-sodium diet, less than 2000 mg daily. Strict I&Os and daily weights. LV systolic function is normal. 2. CAD s/p CABG x 3: No angina. Continue beta-hari. Had been on ARB in the past but was [place] [facility] [place] Continue high- intensity statin therapy. Recommend cardiac rehab on discharge. 3. Atrial fibrillation s/p cardioversonin (05/05/21): Developed postoperative atrial fibrillation following CABG. He was successfully converted to sinus rhythm but once again in atrial fibrillation. Amiodarone has been discontinued. Heart rate adequately controlled. Continue beta-hari for rate control strategy. Continue anticoagulation for stroke risk reduction. 4. Hypertension: Blood pressure remains acceptable. Continue current regimen. 5. Dyslipidemia: Continue high-intensity statin therapy. 6. Hypokalemia and Hypo magnesemia: Has been monitored and supplemented as per primary service. 7. C diff diarrhea: Improved. As per primary service. 8. Disposition: Patient care discussed with primary hospitalist service, Dr. Kimbrough. Will continue to follow. He would like to go home soon. If possible, would continue intravenous diuretics another day and then reassess tomorrow. Admission and Anticipated Discharge Date Admission Date: May 02, 2021 Subjective He denies chest pain, shortness of breath, syncope, near-syncope, palpitations, or bleeding. He is hoping to go home soon. He has had several episodes of urinary incontinence but despite this, fluid balance is negative. His weight is trending down. Review of systems: As above. Physical Exam Physical Exam: Gen.: No acute distress. Alert. HEENT: Anicteric sclera. Neck: No JVD or hepatic jugular reflux noted today. Cardiac: Irregularly irregular. Normal rate. Normal S1-S2. 1/6 early peaking systolic ejection murmur best heard at the right upper sternal border. No rubs or gallops. Pulmonary: Clear to auscultation bilaterally without wheezes, rales, or rhonchi. Abdomen: Soft, nontender, nondistended, with normoactive bowel sounds. No bruits noted. Extremities: 2+ bilateral pitting edema to the knees with 1+ pitting edema from the knees to the hips. No cyanosis. Psychiatric: Affect appears appropriate. Results & Data ([facility]) Vital Signs (Past 12 Hours) Vital Signs Temp Pulse Pulse Resp BP Pulse Ox 05/14/21 07:16 36.8 C 61 20 101/63 95 05/14/21 03:04 36.6 C 78 17 107/56 L 97 05/13/21 23:00 79 05/13/21 22:46 37.0 C 72 17 121/60 96 Intake & Output 05/12/21 05/13/21 05/14/21 05/15/21 06:59 06:59 06:59 06:59 Intake Total 839 / 839 1559 / 1559 870 / 870 Output Total 351 / 351 1050 / 1050 1103 / 1103 Balance 488 / 488 509 / 509 -233 / -233 Weight 192 lb 3.889 oz 189 lb 6.033 oz 186 lb 15.232 oz Laboratory Results Laboratory Results - last 24 hr 05/13/21 05/13/21 05/13/21 11:50 16:12 20:04 WBC RBC Hgb Hct MCV MCH MCHC RDW Std Deviation RDW Coeff of Savi Plt Count MPV Sodium Potassium Chloride Carbon Dioxide Anion Gap BUN Creatinine Est Cr Clr Drug Dosing Est GFR ( Amer) Est GFR (Non-Af Amer) BUN/Creatinine Ratio Glucose POC Glucose 161 H 87 188 H Calcium 05/14/21 05/14/21 05/14/21 06:09 06:09 07:13 WBC 5.02 RBC 2.59 L Hgb 8.2 L Hct 28.1 L MCV 108.5 H MCH 31.7 MCHC 29.2 L RDW Std Deviation 63.5 H RDW Coeff of Savi 16.2 H Plt Count 220 MPV 8.3 Sodium 140 Potassium 4.5 Chloride 97 L Carbon Dioxide 44 H* Anion Gap -1.0 L BUN 28 H Creatinine 1.04 Est Cr Clr Drug Dosing 53.8 Est GFR ( Amer) 77.1 Est GFR (Non-Af Amer) 66.6 BUN/Creatinine Ratio 26.9 H Glucose 129 H POC Glucose 119 H Calcium 10.5 H Diagnostic Findings Telemetry personally reviewed: Rate controlled AFib. Medications Administered Current Inpatient Medications Acetaminophen (Acetaminophen 325 Mg Tab) 650 mg PO Q6H PRN PRN Reason: Pain Stop: 06/06/21 14:26 Last Admin: 05/09/21 17:22 Dose: 650 mg Documented by: Apixaban (Apixaban 5 Mg Tablet) 5 mg PO BID [place] Stop: 06/01/21 20:59 Last Admin: 05/14/21 08:48 Dose: 5 mg Documented by: Aspirin (Aspirin 81 Mg Ectab) 81 mg PO DAILY [facility] Stop: 06/02/21 08:59 Last Admin: 05/14/21 08:45 Dose: 81 mg Documented by: Atorvastatin Calcium (Atorvastatin 40 Mg Tab) 40 mg PO QAM [place] Stop: 06/02/21 08:59 Last Admin: 05/14/21 08:48 Dose: 40 mg Documented by: Cyanocobalamin (Cyanocobalamin (Vitamin B-12) 2,500 Mcg Tab.Subl) 5,000 mcg SL DAILY [facility] Stop: 06/02/21 08:59 Last Admin: 05/14/21 08:48 Dose: 5,000 mcg Documented by: Dextrose (Dextrose 50% 50 Ml Syringe) 25 - 50 ml IV UD PRN; Protocol PRN Reason: Hypoglycemia Protocol Stop: 06/02/21 01:14 Ferrous Sulfate (Ferrous Sulfate 325 Mg Tab) 325 mg PO TID [place] Stop: 06/01/21 20:59 Last Admin: 05/14/21 08:47 Dose: 325 mg Documented by: Glucagon (Glucagon For Inj 1 Mg Vial) 1 mg SQ UD PRN; Protocol PRN Reason: Hypoglycemia Protocol Stop: 06/02/21 01:14 Glucose (Glucose 40% Gel 15 Gm Tube) 15 - 30 gm PO UD PRN; Protocol PRN Reason: Hypoglycemia Protocol Stop: 06/02/21 01:14 Glucose (Glucose 10 Tabs/Tube) 4 - 8 tabs PO UD PRN; Protocol PRN Reason: Hypoglycemia Protocol Stop: 06/02/21 01:14 Bumetanide 4 mg/ Syringe 16 mls @ 4 mls/min IV BID@0900,1700 [facility] Stop: 06/11/21 09:14 Last Admin: 05/14/21 08:45 Dose: 4 mls/min Documented by: Insulin Aspart (Insulin Aspart 100 Units/Ml 3 Ml Pen) 0 units SC ACHS [facility]; Protocol Stop: 06/02/21 01:59 Last Admin: 05/14/21 08:49 Dose: Not Given Documented by: Levothyroxine Sodium (Levothyroxine Sodium 75 Mcg Tablet) 75 mcg PO DAILYBB [facility] Stop: 06/02/21 06:29 Last Admin: 05/14/21 05:42 Dose: 75 mcg Documented by: Melatonin (Melatonin 3 Mg Tab) 9 mg PO HS PRN PRN Reason: Sleep Stop: 06/01/21 20:43 Metoprolol Succinate (Metoprolol Succ 25mg Ext Rel Tab) 25 mg PO BID [facility] Stop: 06/09/21 20:59 Last Admin: 05/14/21 08:46 Dose: 25 mg Documented by: Miscellaneous (Carbohydrates For Hypoglycemia ) 15 - 30 gm PO UD PRN PRN Reason: Hypoglycemia Treatment Stop: 06/02/21 01:14 Multivitamins (Multivitamin Tab) 1 tab PO DAILY [facility] Stop: 06/02/21 08:59 Last Admin: 05/14/21 08:46 Dose: 1 tab Documented by: Pantoprazole Sodium (Pantoprazole 40 Mg Tab) 40 mg PO DAILY [facility] Stop: 06/02/21 08:59 Last Admin: 05/14/21 08:47 Dose: 40 mg Documented by: Potassium Chloride (Potassium Chloride Crtab 20 Meq Tabcr) 20 meq PO BID [facility] Stop: 06/12/21 20:59 Last Admin: 05/14/21 08:45 Dose: 20 meq Documented by: Raspberry (Raspberry Syrup 5 Ml Udp) 5 ml PO Q6 [facility] Stop: 05/27/21 00:00 Last Admin: 05/14/21 05:43 Dose: 5 ml Documented by: Saccharomyces Boulardii (Saccharomyces Boulardii 250 Mg Cap) 250 mg PO DAILY [facility] Stop: 06/02/21 08:59 Last Admin: 05/14/21 08:46 Dose: 250 mg Documented by: Tamsulosin HCl (Tamsulosin Hcl 0.4 Mg Cap) 0.8 mg PO HS [facility] Stop: 06/01/21 20:59 Last Admin: 05/13/21 20:23 Dose: 0.8 mg Documented by: Vancomycin HCl (Vancomycin Hcl 125 Mg/2.5ml Soln) 125 mg PO Q6 [facility] Stop: 05/23/21 06:29 Last Admin: 05/14/21 05:44 Dose: 125 mg Documented by: Vitamin D (Cholecalciferol 1,000 Units 25 Mcg Tab) 1,000 units PO DAILY [facility] Stop: 06/02/21 08:59 Last Admin: 05/14/21 08:47 Dose: 1,000 units Documented by: PG Care Time/CCT Total # of Minutes Spent Total Time Spent with Patient: Total time spent is greater than 50% in coordination of care (as documented) at patient's floor/unit and/or counseling patient: Coding Level of Care Code 01460 Subseq Hosp Care Lvl 3 Diagnoses Acute heart failure with preserved ejection fraction I50.31 CAD in [place] artery I25.10 S/P CABG (coronary artery bypass graft) Z95.1 Persistent atrial fibrillation I48.19 Hypertension I10 Dyslipidemia E78.5
--- NOTE | 2021-05-14 11:14 | Hospitalist Progress Note ---
Date of Service May 14, 2021 Assessment & Plan (1) Acute heart failure with preserved ejection fraction: Plan: Pt is an 80 year old male presenting to the hospital for CHF exacerbation. Pt is s/p CABG 1 month ago. (1) Acute heart failure with preserved ejection fraction: -Physical exam showing improvement from yesterday, still some evidence of fluid overload. Breathing is stable. Most improvement since hospitalized. -I&O's showed -1135 mL over 24 hours. These may not be accurate as his is incontinent and urinates in bed and on floor sometimes. 1.1 kg weight loss in 24 hours. -echo 05/05/21: EF 55-60%, mild concentric LVH, mild to moderate mitral regurge, moderate tricuspid regurge, nosignificant changes from echo 02/21/21 -Bumex 4mg IV BID. Received 250mg chlorothiazide prior to bumex. -Strict I&Os and daily weights. Neg balance 1000 last 24hr. Continue heart healthy DM2 diet. -Monitor renal function and electrolytes closely. --> Creatinine, K WNL. K 4.4-->4.5 over 24 hours. Supplemental K 20meq BID. BUN at 28. (2) Hypercapnia -Pt still refuses bipap, Bicarb at 44 today. -Emphasized importance of bipap to patient to reduce CO2 retention (3) Persistent atrial fibrillation: -continue metoprolol succinate 25 mg bid for rate control and eliquis for anticoagulation (4)Sacral Ulcer -Stage 1 measuring 3.5 cm in diameter, continue to monitor. -Being covered with clear film and frequent position changes. (5) S/P CABG (coronary artery bypass graft): - No angina pectoris. - continue Metoprolol succinate 25 mg bid - Continue Atorvastatin 40 mg daily. - Cardio recommends cardiac rehab following discharge. (6) C. difficile diarrhea: - c. diff toxin and gene were positive. Hx. recurrent c. diff -Stools are solid today. cont PO vancomycin -when discharged, recurrent c. diff total dosing: vancomycin 125mg PO q6h x10-14 days, then 125mg PO q12h x7 days, then 125 PO qd x 7 days, then 125mg PO q2-3 days x2-8 weeks FENa: heart healthy DM2 diet Code Status: full DVT PPX: eliquis PT/OT: ordered, seen by PT/OT 4 days ago, recommend snf at that time Case Management: [facility] has bed available if discharged -Pt needs up to date PT/OT notes for consideration for discharge. -Pt refused PT today. Will push to get him to participate tomorrow. Admission and Anticipated Discharge Date Admission Date: May 02, 2021 Supervising Physician Co-Signing Physician Notes Resident Physician Supervision Note: I independently interviewed and examined the patient and verified the shankar his tory and physical, reviewed labs and image studies and agree with resident Dr. Kimbrough findings and care plan. Subjective Patient seen in chair this morning. Patient states that he is doing well and has no complaints. He reports that he feels that his legs have decreased in size and that he is urinating more. We had increased his Bumex from 3 mg twice daily to 4 mg twice daily yesterday. He reports that he has been urinating on himself because of how much he has been going to the bathroom. He feels guilty about doing so and having the staff cleaned him up. He states that when he has to go the bathroom he is unable to make it to the restroom in time. Otherwise he reports no shortness of breath, chest pain, or orthopnea. Patient still ref uses to wear BiPAP at night. He is adamant about how uncomfortable it is and he is unable to sleep when he wears it. Patient has no other complaints at this time. Review of Systems Review of Systems: All systems reviewed & are unremarkable except as noted in HPI & below Physical Exam Constitutional: WD/WN, vitals as above well nourished, cooperative and comfortable Eyes: PERRL, conjunctivae normal, anicteric sclerae + anicteric sclerae Neck: trachea midline, no thyromegaly Respiratory: normal respiratory effort, lungs clear to auscultation Cardiovascular: RRR, no murmur, no edema Rate/Rhythm: regular rate and regular rhythm Heart Sounds: normal S1 and normal S2 Extremities: + edema (2+ b/l pitting edema to below knee) Gastrointestinal (Abdomen): normal bowel sounds, soft, nontender, no hepatosplenomegaly Skin: no rashes, warm and dry + ulcer (Stage 1 pressure ulcer in the superior gluteal cleft measuring 3.5 cm) and + scar (on chest from CAB) Psychiatric: A+Ox3, euthymic affect Orientation: alert, oriented to person, oriented to place and oriented to time Results & Data Results & Data ([facility]) Vital Signs (Past 12 Hours) Vital Signs Temp Pulse Resp BP Pulse Ox 05/14/21 07:16 36.8 C 61 20 101/63 95 05/14/21 03:04 36.6 C 78 17 107/56 L 97
[2021-05-14] MEDS: TAMSULOSIN HCL 0.4 MG CAP PO SCH (21:06)
[2021-05-15] MEDS: RASPBERRY SYRUP 5 ML UDP PO SCH ×4 (05:08→23:53)
[2021-05-15] MEDS: LEVOTHYROXINE SODIUM 75 MCG TABLET PO SCH (05:08)
[2021-05-15] MEDS: VANCOMYCIN HCL 125 MG/2.5ML SOLN PO SCH ×4 (05:08→23:53)
[2021-05-15 07:04] LABS: BUN Creatinine Ratio 20.2 (10-20); Calcium 10.2 mg/dl (8.5-10.1); Creatinine Clr Calc Pharmacy 46.1 ml/min; Est GFR (African American) 63.6 ml/min; Est GFR (Non-African American) 54.9 ml/min; Potassium 4.1 mmol/L (3.5-5.1)
[2021-05-15 07:10] LABS: Hematocrit (blood only) 26.9 % (42-52); Hemoglobin 8.2 g/dL (14.0-18.0); Mean Corpuscular Hemoglobin 33.1 pg (25-34); Mean Corpuscular Hgb Conc 30.5 g/dL (32-36); Mean Corpuscular Volume 108.5 fL (80-100); Platelet Count 250 K/uL (130-400); Red Blood Count 2.48 M/uL (4.7-6.1); White Blood Count 4.18 K/uL (4.8-10.8)
[2021-05-15] MEDS: ATORVASTATIN 40 MG TAB PO SCH (08:09)
[2021-05-15] MEDS: MULTIVITAMIN TAB PO SCH (08:09)
[2021-05-15] MEDS: CHOLECALCIFEROL 1,000 UNITS 25 MCG TAB PO SCH (08:09)
[2021-05-15] MEDS: CYANOCOBALAMIN (VITAMIN B-12) 2,500 MCG TAB.SUBL SL SCH (08:10)
[2021-05-15] MEDS: PANTOprazole 40 MG TAB PO SCH (08:10)
[2021-05-15] MEDS: FERROUS SULFATE 325 MG TAB PO SCH ×3 (08:10→20:59)
[2021-05-15] MEDS: ASPIRIN 81 MG ECTAB PO SCH (08:10)
[2021-05-15] MEDS: BUMETANIDE 4 MG in SYRINGE 0 ML IV SCH ×2 (08:12→18:01)
[2021-05-15] MEDS: POTASSIUM CHLORIDE CRTAB 20 MEQ TABCR PO SCH ×2 (08:13→20:59)
[2021-05-15] MEDS: APIXABAN 5 MG TABLET PO SCH ×2 (08:15→20:59)
[2021-05-15] MEDS: METOPROLOL SUCC 25MG EXT REL TAB PO SCH ×2 (08:17→20:59)
[2021-05-15] MEDS: INSULIN ASPART 100 UNITS/ML 3 ML PEN SC SCH ×4 (08:35→20:48)
[2021-05-15] MEDS: SACCHAROMYCES BOULARDII 250 MG CAP PO SCH ×2 (10:15→13:08)
--- NOTE | 2021-05-15 13:33 | Cardiology Progress Note ---
Date of Service May 15, 2021 Assessment & Plan (1) Acute heart failure with preserved ejection fraction: (2) CAD in [place] artery: (3) S/P CABG (coronary artery bypass graft): (4) Persistent atrial fibrillation: (5) Hypertension: (6) Dyslipidemia: Plan: ASSESSMENT/PLAN: 1. Acute HFpEF (Heart failure with preserved EF): Slowly improving from a volume standpoint. Continue current regimen of Bumex 4 mg IV twice daily. Fluid balance is not accurate as he continues to have episodes of urinary incontinence. Monitor electrolytes and renal function closely. Continue to follow with heart failure program, Illig. Low-sodium diet, less than 2000 mg daily. Strict I&Os and daily weights. LV systolic function is normal. 2. CAD s/p CABG x 3: No angina. Continue beta-hari. Had been on ARB in the past but was discontinued following hospitalization at [facility] [place]. Continue high- intensity statin therapy. Recommend cardiac rehab on discharge. 3. Atrial fibrillation s/p cardioversonin (05/05/21): Developed postoperative atrial fibrillation following CABG. He was successfully converted to sinus rhythm but once again in atrial fibrillation. Amiodarone has been discontinued. Heart rate adequately controlled. Continue beta-hari for rate control s trategy. Continue anticoagulation for stroke risk reduction. 4. Hypertension: Blood pressure remains acceptable. No changes made today. 5. Dyslipidemia: Continue high-intensity statin therapy. 6. Hypokalemia and Hypo magnesemia: Has been monitored and supplemented as per primary service. 7. C diff diarrhea: Improved. As per primary service. 8. Disposition: Patient care discussed with primary hospitalist service, Dr. Kimbrough and Dr. Smith. Will continue to follow. He would like to go home soon. As long as he remains hospitalized, would continue with intravenous diuretics. Admission and Anticipated Discharge Date Admission Date: May 02, 2021 Subjective Patient was seen on 05/15/2021. He felt better than he has throughout the hospital stay. He admits that his legs look much better when he first got out of the bed but edema worsened as he sat with his legs down. He was out of bed and felt well walking short distances. He denies chest pain, shortness of breath, syncope, near-syncope. Review of systems: As above. Physical Exam Physical Exam: Gen.: No acute distress. Alert. HEENT: Anicteric sclera. Neck: No JVD. Cardiac: Irregularly irregular. Normal rate. Normal S1-S2. 1/6 early peaking systolic ejection murmur best heard at the right upper sternal border. No rubs or gallops. Pulmonary: Clear to auscultation bilaterally without wheezes, rales, or rhonchi. Abdomen: Soft, nontender, nondistended, with normoactive bowel sounds. No bruits noted. Extremities: 2-3+ bilateral pitting edema to the knees with trace pitting edema from the knees to the hips. No cyanosis. Psychiatric: Affect appears appropriate. Results & Data ([facility]) Vital Signs (Past 12 Hours) Vital Signs Temp Pulse Pulse Resp BP Pulse Ox 05/15/21 12:08 36.8 C 83 18 115/69 95 05/15/21 08:26 36.9 C 72 18 108/88 96 05/15/21 07:57 76 05/15/21 03:58 36.8 C 77 20 100/58 L 96 Laboratory Results Laboratory Results - last 48 hr 05/14/21 05/14/21 05/14/21 11:09 16:28 20:07 WBC RBC Hgb Hct MCV MCH MCHC Plt Count Sodium Potassium Chloride Carbon Dioxide Anion Gap BUN Creatinine Est Cr Clr Drug Dosing Est GFR ( Amer) Est GFR (Non-Af Amer) BUN/Creatinine Ratio Glucose POC Glucose 278 H 74 165 H Calcium 05/15/21 05/15/21 05/15/21 06:01 06:01 07:29 WBC 4.18 L RBC 2.48 L Hgb 8.2 L Hct 26.9 L MCV 108.5 H MCH 33.1 MCHC 30.5 L Plt Count 250 Sodium 137 Potassium 4.1 Chloride 98 Carbon Dioxide 41 H* Anion Gap -2.0 L BUN 25 H Creatinine 1.22 Est Cr Clr Drug Dosing 46.1 Est GFR ( Amer) 63.6 Est GFR (Non-Af Amer) 54.9 BUN/Creatinine Ratio 20.2 H Glucose 115 H POC Glucose 117 H Calcium 10.2 H 05/15/21 05/15/21 05/15/21 11:24 16:27 20:42 WBC RBC Hgb Hct MCV MCH MCHC Plt Count Sodium Potassium Chloride Carbon Dioxide Anion Gap BUN Creatinine Est Cr Clr Drug Dosing Est GFR ( Amer) Est GFR (Non-Af Amer) BUN/Creatinine Ratio Glucose POC Glucose 135 H 127 H 138 H Calcium 05/16/21 05/16/21 06:10 07:35 WBC RBC Hgb Hct MCV MCH MCHC Plt Count Sodium 139 Potassium 3.7 Chloride 98 Carbon Dioxide 41 H* Anion Gap 0 L BUN 26 H Creatinine 1.17 Est Cr Clr Drug Dosing 48.1 Est GFR ( Amer) 66.9 Est GFR (Non-Af Amer) 57.7 BUN/Creatinine Ratio 22.1 H Glucose 116 H POC Glucose 116 H Calcium 9.9 Diagnostic Findings Telemetry was personally reviewed: Atrial fibrillation. Medications Administered Current Inpatient Medications Acetaminophen (Acetaminophen 325 Mg Tab) 650 mg PO Q6H PRN PRN Reason: Pain Stop: 06/06/21 14:26 Last Admin: 05/09/21 17:22 Dose: 650 mg Documented by: Apixaban (Apixaban 5 Mg Tablet) 5 mg PO BID ARCADIO Stop: 06/01/21 20:59 Last Admin: 05/16/21 08:12 Dose: 5 mg Documented by: Aspirin (Aspirin 81 Mg Ectab) 81 mg PO DAILY ARCADIO Stop: 06/02/21 08:59 Last Admin: 05/16/21 08:16 Dose: 81 mg Documented by: Atorvastatin Calcium (Atorvastatin 40 Mg Tab) 40 mg PO QAM ARCADIO Stop: 06/02/21 08:59 Last Admin: 05/16/21 08:13 Dose: 40 mg Documented by: Cyanocobalamin (Cyanocobalamin (Vitamin B-12) 2,500 Mcg Tab.Subl) 5,000 mcg SL DAILY ARCADIO Stop: 06/02/21 08:59 Last Admin: 05/16/21 08:14 Dose: 5,000 mcg Documented by: Dextrose (Dextrose 50% 50 Ml Syringe) 25 - 50 ml IV UD PRN; Protocol PRN Reason: Hypoglycemia Protocol Stop: 06/02/21 01:14 Ferrous Sulfate (Ferrous Sulfate 325 Mg Tab) 325 mg PO TID ARCADIO Stop: 06/01/21 20:59 Last Admin: 05/16/21 08:14 Dose: 325 mg Documented by: Glucagon (Glucagon For Inj 1 Mg Vial) 1 mg SQ UD PRN; Protocol PRN Reason: Hypoglycemia Protocol Stop: 06/02/21 01:14 Glucose (Glucose 40% Gel 15 Gm Tube) 15 - 30 gm PO UD PRN; Protocol PRN Reason: Hypoglycemia Protocol Stop: 06/02/21 01:14 Glucose (Glucose 10 Tabs/Tube) 4 - 8 tabs PO UD PRN; Protocol PRN Reason: Hypoglycemia Protocol Stop: 06/02/21 01:14 Bumetanide 4 mg/ Syringe 16 mls @ 4 mls/min IV BID@0900,1700 [facility] Stop: 06/11/21 09:14 Last Admin: 05/16/21 08:34 Dose: 4 mls/min Documented by: Insulin Aspart (Insulin Aspart 100 Units/Ml 3 Ml Pen) 0 units SC ACHS ARCADIO; Protocol Stop: 06/02/21 01:59 Last Admin: 05/16/21 08:32 Dose: Not Given Documented by: Levothyroxine Sodium (Levothyroxine Sodium 75 Mcg Tablet) 75 mcg PO DAILYBB [facility] Stop: 06/02/21 06:29 Last Admin: 05/16/21 05:51 Dose: 75 mcg Documented by: Melatonin (Melatonin 3 Mg Tab) 9 mg PO HS PRN PRN Reason: Sleep Stop: 06/01/21 20:43 Metoprolol Succinate (Metoprolol Succ 25mg Ext Rel Tab) 25 mg PO BID ARCADIO Stop: 06/09/21 20:59 Last Admin: 05/16/21 08:12 Dose: 25 mg Documented by: Miscellaneous (Carbohydrates For Hypoglycemia ) 15 - 30 gm PO UD PRN PRN Reason: Hypoglycemia Treatment Stop: 06/02/21 01:14 Multivitamins (Multivitamin Tab) 1 tab PO DAILY ARCADIO Stop: 06/02/21 08:59 Last Admin: 05/16/21 08:16 Dose: 1 tab Documented by: Pantoprazole Sodium (Pantoprazole 40 Mg Tab) 40 mg PO DAILY ARCADIO Stop: 06/02/21 08:59 Last Admin: 05/16/21 08:15 Dose: 40 mg Documented by: Potassium Chloride (Potassium Chloride Crtab 20 Meq Tabcr) 20 meq PO BID ARCADIO Stop: 06/12/21 20:59 Last Admin: 05/16/21 08:17 Dose: 20 meq Documented by: Raspberry (Raspberry Syrup 5 Ml Udp) 5 ml PO Q6 [facility] Stop: 05/27/21 00:00 Last Admin: 05/16/21 05:51 Dose: 5 ml Documented by: Saccharomyces Boulardii (Saccharomyces Boulardii 250 Mg Cap) 250 mg PO DAILY RACADIO Stop: 06/02/21 08:59 Last Admin: 05/16/21 08:14 Dose: 250 mg Documented by: Tamsulosin HCl (Tamsulosin Hcl 0.4 Mg Cap) 0.8 mg PO HS ARCADIO Stop: 06/01/21 20:59 Last Admin: 05/15/21 20:59 Dose: 0.8 mg Documented by: Vancomycin HCl (Vancomycin Hcl 125 Mg/2.5ml Soln) 125 mg PO Q6 [facility]CADIO Stop: 05/23/21 06:29 Last Admin: 05/16/21 05:51 Dose: 125 mg Documented by: Vitamin D (Cholecalciferol 1,000 Units 25 Mcg Tab) 1,000 units PO DAILY ARCADIO Stop: 06/02/21 08:59 Last Admin: 05/16/21 08:16 Dose: 1,000 units Documented by: PG Care Time/CCT Total # of Minutes Spent Total Time Spent with Patient: Total time spent is greater than 50% in coordination of care (as documented) at patient's floor/unit and/or counseling patient: Coding Level of Care Code 70265 Subseq Hosp Care Lvl 3 Diagnoses Acute heart failure with preserved ejection fraction I50.31 CAD in [place] artery I25.10 S/P CABG (coronary artery bypass graft) Z95.1 Persistent atrial fibrillation I48.19 Hypertension I10 Dyslipidemia E78.5
--- NOTE | 2021-05-15 17:49 | Hospitalist Progress Note ---
Date of Service May 15, 2021 Assessment & Plan (1) Acute heart failure with preserved ejection fraction: Plan: Pt is an 80 year old male presenting to the hospital for CHF exacerbation. Pt is s/p CABG 1 month ago. (1) Acute heart failure with preserved ejection fraction: -Physical exam showing improvement from yesterday, still some evidence of fluid overload. Breathing is stable. Most improvement since hospitalized. -I&O's showed -1435 mL over 24 hours. These may not be accurate as his is incontinent and urinates in bed and on floor sometimes. -echo 05/05/21: EF 55-60%, mild concentric LVH, mild to moderate mitral regurge, moderate tricuspid regurge, nosignificant changes from echo 02/21/21 -Bumex 4mg IV BID. -Strict I&Os and daily weights. Continue heart healthy DM2 diet. -Monitor renal function and electrolytes closely. --> Creatinine, K WNL. K 4.4 -->4.1 over 24 hours. Supplemental K 20meq BID. BUN at 25. -Pt needs up to date PT/OT notes for consideration for discharge. -PT/OT today. (2) Hypercapnia -Pt still refuses bipap, Bicarb at 44 today. -Emphasized importance of bipap to patient to reduce CO2 retention (3) Persistent atrial fibrillation: -continue metoprolol succinate 25 mg bid for rate control and eliquis for anticoagulation (4)Sacral Ulcer -Stage 1 measuring 3.5 cm in diameter, continue to monitor. -Being covered with clear film and frequent position changes. (5) S/P CABG (coronary artery bypass graft): - No angina pectoris. - continue Metoprolol succinate 25 mg bid - Continue Atorvastatin 40 mg daily. - Cardio recommends cardiac rehab following discharge. (6) C. difficile diarrhea: - c. diff toxin and gene were positive. Hx. recurrent c. diff -Stools are solid today. cont PO vancomycin -when discharged, recurrent c. diff total dosing: vancomycin 125mg PO q6h x10-14 days, then 125mg PO q12h x7 days, then 125 PO qd x 7 days, then 125mg PO q2-3 days x2-8 weeks FENa: heart healthy DM2 diet Code Status: full DVT PPX: eliquis PT/OT: ordered, seen by PT/OT recommend snf today. Case Management: [facility] has bed available if discharged Admission and Anticipated Discharge Date Admission Date: May 02, 2021 Supervising Physician Co-Signing Physician Notes I personally examined the patient and verified all shankar points of history and exam, discussed case, and agree with decision making with Dr Kimbrough. Breathing continues to feel better. Discussed with cardiology. Input appreciated. Still waiting on insurance approval for SNF. Vitals noted, in general he is awake and alert hard of hearing but no distress. HEENT normocephalic atraumatic mucous membranes moist. Breathing unlabored no accessory muscle use good effort. Skin shows no rashes no pallor or icterus. HFpEF - diuresing. continue current. stable for SNF once bed available then ongoing outpt diuresis and management/close f/u Cdiff - improved on vanco. given recurrence - prolonged course. CASEY/OHS - would likely benefit a lot from Bipap but thus far has been refusing anticoagulated otherwise as above Subjective Patient is a pleasant male seen in his recliner this morning. Patient states that he is doing well as usual. Patient reports that he has been having the same amount of urination over the past 24 hours as he did yesterday. Patient reports solid stools. Patient reports that he feels like his lower extremities have gotten significantly smaller over the past 24 hours for which he seems pretty excited. Patient reports no difficulty with breathing. When asked how physical therapy has been going, patient states that they have not seen him in a few days. PT had attempted to work with him yesterday but patient refused as he was tired. When asked about his sacral ulcer, he reports that it is still moderately painful but improved. He reports that the overnight nurse was pushing him to change positions in bed for which he was getting frustrated with. Patient reports no other complaints at this time. Review of Systems Review of Systems: All systems reviewed & are unremarkable except as noted in HPI & below Physical Exam Constitutional: WD/WN, vitals as above Eyes: + anicteric sclerae Neck: trachea midline Respiratory: normal respiratory effort, lungs clear to auscultation Cardiovascular: Rate/Rhythm: regular rate and + irregularly irregular Extremities: + edema (2+ pitting edema to the mid patel. (Improved from yesterday)) Gastrointestinal (Abdomen): normal bowel sounds, soft, nontender, no hepatosplenomegaly Skin: Dermatitis stasis noted on LE b/l Neurologic: moves all extremities Psychiatric: A+Ox3, euthymic affect Lymphatic: no cervical or axillary lymphadenopathy Results & Data Results & Data ([facility]) Vital Signs (Past 12 Hours) Vital Signs Temp Pulse Pulse Resp BP Pulse Ox 05/15/21 14:00 36.6 C 72 18 122/61 96 05/15/21 12:08 36.8 C 83 18 115/69 95 05/15/21 08:26 36.9 C 72 18 108/88 96 05/15/21 07:57 76
--- NOTE | 2021-05-15 18:28 | Billing Data ---
Date of Service May 15, 2021 Coding Level of Care Code 05337 Subseq Hosp Care Lvl 2
[2021-05-15] MEDS: TAMSULOSIN HCL 0.4 MG CAP PO SCH (20:59)
[2021-05-16] MEDS: LEVOTHYROXINE SODIUM 75 MCG TABLET PO SCH (05:51)
[2021-05-16] MEDS: RASPBERRY SYRUP 5 ML UDP PO SCH ×4 (05:51→23:29)
[2021-05-16] MEDS: VANCOMYCIN HCL 125 MG/2.5ML SOLN PO SCH ×4 (05:51→23:29)
[2021-05-16 07:10] LABS: BUN Creatinine Ratio 22.1 (10-20); Calcium 9.9 mg/dl (8.5-10.1); Creatinine Clr Calc Pharmacy 48.1 ml/min; Est GFR (African American) 66.9 ml/min; Est GFR (Non-African American) 57.7 ml/min; Potassium 3.7 mmol/L (3.5-5.1)
[2021-05-16] MEDS: APIXABAN 5 MG TABLET PO SCH ×2 (08:12→20:18)
[2021-05-16] MEDS: METOPROLOL SUCC 25MG EXT REL TAB PO SCH ×2 (08:12→20:18)
[2021-05-16] MEDS: ATORVASTATIN 40 MG TAB PO SCH (08:13)
[2021-05-16] MEDS: FERROUS SULFATE 325 MG TAB PO SCH ×3 (08:14→20:18)
[2021-05-16] MEDS: SACCHAROMYCES BOULARDII 250 MG CAP PO SCH (08:14)
[2021-05-16] MEDS: CYANOCOBALAMIN (VITAMIN B-12) 2,500 MCG TAB.SUBL SL SCH (08:14)
[2021-05-16] MEDS: PANTOprazole 40 MG TAB PO SCH (08:15)
[2021-05-16] MEDS: MULTIVITAMIN TAB PO SCH (08:16)
[2021-05-16] MEDS: ASPIRIN 81 MG ECTAB PO SCH (08:16)
[2021-05-16] MEDS: CHOLECALCIFEROL 1,000 UNITS 25 MCG TAB PO SCH (08:16)
[2021-05-16] MEDS: POTASSIUM CHLORIDE CRTAB 20 MEQ TABCR PO SCH ×2 (08:17→20:20)
[2021-05-16] MEDS: INSULIN ASPART 100 UNITS/ML 3 ML PEN SC SCH ×4 (08:32→20:11)
[2021-05-16] MEDS: BUMETANIDE 4 MG in SYRINGE 0 ML IV SCH ×2 (08:34→16:45)
--- NOTE | 2021-05-16 10:45 | Cardiology Progress Note ---
Date of Service May 16, 2021 Assessment & Plan (1) Acute heart failure with preserved ejection fraction: (2) CAD in [place] artery: (3) S/P CABG (coronary artery bypass graft): (4) Persistent atrial fibrillation: (5) Hypertension: (6) Dyslipidemia: Plan: ASSESSMENT/PLAN: 1. Acute HFpEF (Heart failure with preserved EF): Fluid balance continues to be net negative daily, with additional incontinent episodes that are not being calculated. Continue current regimen of Bumex 4 mg IV twice daily while hospitalized. Would transition to Bumex 4 mg p.o. b.i.d. on discharge as he is not yet euvolemic. Fluid balance under estimates urine output due to episodes of urinary incontinence. Monitor electrolytes and renal function closely. Continue to follow with heart failure program, Suzie. Low-sodium diet, less than 2000 mg daily. Strict I&Os and daily weights. LV systolic function is normal. 2. CAD s/p CABG x 3: No chest pain. Continue beta-hari. Had been on ARB in the past but was discontinued [place] [facility] [place] Continue high- intensity statin therapy. Recommend cardiac rehab on discharge. 3. Atrial fibrillation s/p cardioversonin (05/05/21): Developed postoperative atrial fibrillation following CABG. He was successfully converted to sinus rhythm but once again in atrial fibrillation. Amiodarone has been discontinued. Heart rate adequately controlled. Continue beta-hari for rate control strategy. Continue anticoagulation for stroke risk reduction. 4. Hypertension: Blood pressure remains acceptable. Continue current regimen. 5. Dyslipidemia: Continue high-intensity statin therapy. 6. Hypokalemia and Hypo magnesemia: Has been monitored and supplemented as per primary service. 7. C diff diarrhea: Improved. As per primary service. 8. Disposition: Cardiology will continue to follow while hospitalized. He would like to go home soon. As long as he remains hospitalized, would continue with intravenous diuretics. Close follow-up with heart failure program. Admission and Anticipated Discharge Date Admission Date: May 02, 2021 Subjective Denies chest pain, shortness of breath, syncope, near-syncope, palpitations. He believes that his edema is improving. He continues to expressed interest in being discharged. Review of systems: As above. Physical Exam Physical Exam: Gen.: No acute distress. Alert. HEENT: Anicteric sclera. Neck: No JVD. No significant hepatic jugular reflux noted. Cardiac: Irregularly irregular. Normal rate. Normal S1-S2. 1/6 early peaking systolic ejection murmur best heard at the right upper sternal border. No rubs or gallops. Pulmonary: Clear to auscultation bilaterally without wheezes, rales, or rhonchi. Abdomen: Soft, nontender, nondistended, with normoactive bowel sounds. No bruits noted. Extremities: 2+ bilateral pitting edema to the knees with trace pitting edema from the knees to the hips. No cyanosis. Psychiatric: Affect appears appropriate. Results & Data ([facility]) Vital Signs (Past 12 Hours) Vital Signs Temp Pulse Pulse Resp BP Pulse Ox 05/16/21 08:57 62 05/16/21 08:34 36.9 C 74 18 115/70 96 05/16/21 05:55 36.9 C 75 16 109/56 L 95 05/15/21 23:29 36.9 C 83 18 103/66 97 Intake & Output 05/14/21 05/15/21 05/16/21 05/17/21 06:59 06:59 06:59 06:59 Intake Total 870 / 870 284 / 284 180 / 180 Output Total 1103 / 1103 1974 / 1974 932 / 932 Balance -233 / -233 -1691 / -1691 -752 / -752 Weight 186 lb 15.232 oz 189 lb 6.033 oz 189 lb 6.033 oz Laboratory Results Laboratory Results - last 24 hr 05/15/21 05/15/21 05/15/21 11:24 16:27 20:42 Sodium Potassium Chloride Carbon Dioxide Anion Gap BUN Creatinine Est Cr Clr Drug Dosing Est GFR ( Amer) Est GFR (Non-Af Amer) BUN/Creatinine Ratio Glucose POC Glucose 135 H 127 H 138 H Calcium 05/16/21 05/16/21 06:10 07:35 Sodium 139 Potassium 3.7 Chloride 98 Carbon Dioxide 41 H* Anion Gap 0 L BUN 26 H Creatinine 1.17 Est Cr Clr Drug Dosing 48.1 Est GFR ( Amer) 66.9 Est GFR (Non-Af Amer) 57.7 BUN/Creatinine Ratio 22.1 H Glucose 116 H POC Glucose 116 H Calcium 9.9 Diagnostic Findings Telemetry personally reviewed: Atrial fibrillation, with adequate rate control. Medications Administered Current Inpatient Medications Acetaminophen (Acetaminophen 325 Mg Tab) 650 mg PO Q6H PRN PRN Reason: Pain Stop: 06/06/21 14:26 Last Admin: 05/09/21 17:22 Dose: 650 mg Documented by: Apixaban (Apixaban 5 Mg Tablet) 5 mg PO BID [facility] Stop: 06/01/21 20:59 Last Admin: 05/16/21 08:12 Dose: 5 mg Documented by: Aspirin (Aspirin 81 Mg Ectab) 81 mg PO DAILY [facility] Stop: 06/02/21 08:59 Last Admin: 05/16/21 08:16 Dose: 81 mg Documented by: Atorvastatin Calcium (Atorvastatin 40 Mg Tab) 40 mg PO QAM [facility] Stop: 06/02/21 08:59 Last Admin: 05/16/21 08:13 Dose: 40 mg Documented by: Cyanocobalamin (Cyanocobalamin (Vitamin B-12) 2,500 Mcg Tab.Subl) 5,000 mcg SL DAILY [facility] Stop: 06/02/21 08:59 Last Admin: 05/16/21 08:14 Dose: 5,000 mcg Documented by: Dextrose (Dextrose 50% 50 Ml Syringe) 25 - 50 ml IV UD PRN; Protocol PRN Reason: Hypoglycemia Protocol Stop: 06/02/21 01:14 Ferrous Sulfate (Ferrous Sulfate 325 Mg Tab) 325 mg PO TID [facility] Stop: 06/01/21 20:59 Last Admin: 05/16/21 08:14 Dose: 325 mg Documented by: Glucagon (Glucagon For Inj 1 Mg Vial) 1 mg SQ UD PRN; Protocol PRN Reason: Hypoglycemia Protocol Stop: 06/02/21 01:14 Glucose (Glucose 40% Gel 15 Gm Tube) 15 - 30 gm PO UD PRN; Protocol PRN Reason: Hypoglycemia Protocol Stop: 06/02/21 01:14 Glucose (Glucose 10 Tabs/Tube) 4 - 8 tabs PO UD PRN; Protocol PRN Reason: Hypoglycemia Protocol Stop: 06/02/21 01:14 Bumetanide 4 mg/ Syringe 16 mls @ 4 mls/min IV BID@0900,1700 [facility] Stop: 06/11/21 09:14 Last Admin: 05/16/21 08:34 Dose: 4 mls/min Documented by: Insulin Aspart (Insulin Aspart 100 Units/Ml 3 Ml Pen) 0 units SC [facility]; Protocol Stop: 06/02/21 01:59 Last Admin: 05/16/21 08:32 Dose: Not Given Documented by: Levothyroxine Sodium (Levothyroxine Sodium 75 Mcg Tablet) 75 mcg PO DAILYBB [facility] Stop: 06/02/21 06:29 Last Admin: 05/16/21 05:51 Dose: 75 mcg Documented by: Melatonin (Melatonin 3 Mg Tab) 9 mg PO HS PRN PRN Reason: Sleep Stop: 06/01/21 20:43 Metoprolol Succinate (Metoprolol Succ 25mg Ext Rel Tab) 25 mg PO BID [facility] Stop: 06/09/21 20:59 Last Admin: 05/16/21 08:12 Dose: 25 mg Documented by: Miscellaneous (Carbohydrates For Hypoglycemia ) 15 - 30 gm PO UD PRN PRN Reason: Hypoglycemia Treatment Stop: 06/02/21 01:14 Multivitamins (Multivitamin Tab) 1 tab PO DAILY [facility] Stop: 06/02/21 08:59 Last Admin: 05/16/21 08:16 Dose: 1 tab Documented by: Pantoprazole Sodium (Pantoprazole 40 Mg Tab) 40 mg PO DAILY [facility] Stop: 06/02/21 08:59 Last Admin: 05/16/21 08:15 Dose: 40 mg Documented by: Potassium Chloride (Potassium Chloride Crtab 20 Meq Tabcr) 20 meq PO BID [facility] Stop: 06/12/21 20:59 Last Admin: 05/16/21 08:17 Dose: 20 meq Documented by: Raspberry (Raspberry Syrup 5 Ml Udp) 5 ml PO Q6 [facility] Stop: 05/27/21 00:00 Last Admin: 05/16/21 05:51 Dose: 5 ml Documented by: Saccharomyces Boulardii (Saccharomyces Boulardii 250 Mg Cap) 250 mg PO DAILY [facility] Stop: 06/02/21 08:59 Last Admin: 05/16/21 08:14 Dose: 250 mg Documented by: Tamsulosin HCl (Tamsulosin Hcl 0.4 Mg Cap) 0.8 mg PO HS [facility] Stop: 06/01/21 20:59 Last Admin: 05/15/21 20:59 Dose: 0.8 mg Documented by: Vancomycin HCl (Vancomycin Hcl 125 Mg/2.5ml Soln) 125 mg PO Q6 [facility] Stop: 05/23/21 06:29 Last Admin: 05/16/21 05:51 Dose: 125 mg Documented by: Vitamin D (Cholecalciferol 1,000 Units 25 Mcg Tab) 1,000 units PO DAILY [facility] Stop: 06/02/21 08:59 Last Admin: 05/16/21 08:16 Dose: 1,000 units Documented by: PG Care Time/CCT Total # of Minutes Spent Total Time Spent with Patient: Total time spent is greater than 50% in coordination of care (as documented) at patient's floor/unit and/or counseling patient: Coding Level of Care Code 90467 Subseq Hosp Care Lvl 3 Diagnoses Acute heart failure with preserved ejection fraction I50.31 CAD in [place] artery I25.10 S/P CABG (coronary artery bypass graft) Z95.1 Persistent atrial fibrillation I48.19 Hypertension I10 Dyslipidemia E78.5
--- NOTE | 2021-05-16 18:21 | Hospitalist Progress Note ---
Date of Service May 16, 2021 Assessment & Plan (1) Acute heart failure with preserved ejection fraction: Plan: Pt is an 80 year old male presenting to the hospital for CHF exacerbation. Pt is s/p CABG 1 month ago. (1) Acute heart failure with preserved ejection fraction: -Physical exam showing improvement from yesterday, still some evidence of fluid overload. Breathing is stable. Most improvement since hospitalized. -I&O's showed -370 mL over 24 hours. These may not be accurate as his is incontinent and urinates in bed and on floor sometimes. -echo 05/05/21: EF 55-60%, mild concentric LVH, mild to moderate mitral regurge, moderate tricuspid regurge, nosignificant changes from echo 02/21/21 -Bumex 4mg IV BID. -Strict I&Os and daily weights. Continue heart healthy DM2 diet. -Monitor renal function and electrolytes closely. --> Creatinine, K WNL. K 4.1-- >3.7 over 24 hours. Supplemental K switched to 40 mEq twice daily. BUN at 26. -Pt has up-to-date notes with PT and OT. -We are waiting for prior authorization for SNF before discharging. (2) Hypercapnia -Pt still refuses bipap, Bicarb at 41 today. -Emphasized importance of bipap to patient to reduce CO2 retention (3) Persistent atrial fibrillation: -continue metoprolol succinate 25 mg bid for rate control and eliquis for anticoagulation (4)Sacral Ulcer -Stage 1 measuring 3.5 cm in diameter, continue to monitor. -Being covered with clear film and frequent position changes. (5) S/P CABG (coronary artery bypass graft): - No angina pectoris. - continue Metoprolol succinate 25 mg bid - Continue Atorvastatin 40 mg daily. - Cardio recommends cardiac rehab following discharge. (6) C. difficile diarrhea: - c. diff toxin and gene were positive. Hx. recurrent c. diff -Stools are solid today. cont PO vancomycin -when discharged, recurrent c. diff total dosing: vancomycin 125mg PO q6h x10-14 days, then 125mg PO q12h x7 days, then 125 PO qd x 7 days, then 125mg PO q2-3 days x2-8 weeks FENa: heart healthy DM2 diet Code Status: full DVT PPX: eliquis PT/OT: ordered, seen by PT/OT recommend snf. Case Management: [facility] has bed available if discharged Admission and Anticipated Discharge Date Admission Date: May 02, 2021 Supervising Physician Co-Signing Physician Notes I personally examined the patient and verified all shankar points of history and exam, discussed case, and agree with decision making with Dr Kimbrough. Feeling better, breathing better. Bowel movements have essentially normalized. Vitals noted, in general he is awake and alert hard of hearing but no distress. HEENT normocephalic atraumatic mucous membranes moist. Breathing unlabored no accessory muscle use good effort, no rales rhonchi or wheezes with good effortlung sounds somewhat diminished. Skin shows no rashes no pallor or icterus. HFpEF - diuresing. continue current. Still stable for SNF once bed available then ongoing outpt diuresis and management/close f/u Cdiff - improved on vanco. given recurrence - prolonged course will be prescribed. CASEY/OHS - would likely benefit a lot from Bipap but thus far has been refusingtoday we had an extensive discussion on why this is the case, and risk benefits, as well as how trial of BiPAP would likely be different in the outpatient setting given more masks and devices are available usually. anticoagulated otherwise as above Dispositionstable for SNF. Unfortunately his insurance company has yet to get back to us in regards to approval. Is quite unfortunate given that he is physically/medically ready to have more intensive physical therapyand at this point time spent in the hospital will make it longer for him to work his way back home, as well as expose him to risks that are higher in the hospital then in a skilled setting. Hopefully insurance will get back to us tomorrow. Subjective Patient seen in chair today. Patient states he is doing well today. He has no complaints at this time. He is beginning to go a little bit anxious about being discharged. We are currently still waiting on authorization from his insurance t o get him transferred to SNF. He still reports that his stools are still solid. Still reports some pain when he sitting due to the sacral ulcer. Reports that he has participated in physical therapy as instructed which coincides with the notes of been provided. They still believe he is a good candidate for SNF. Patient has no other complaints at this time Review of Systems Review of Systems: All systems reviewed & are unremarkable except as noted in HPI & below Physical Exam Constitutional: WD/WN, vitals as above well nourished, cooperative and comfortable Eyes: PERRL, conjunctivae normal, anicteric sclerae + anicteric sclerae Neck: trachea midline, no thyromegaly trachea midline Respiratory: normal respiratory effort, lungs clear to auscultation Cardiovascular: RRR, no murmur, no edema Rate/Rhythm: regular rate, regular rhythm and + irregularly irregular Heart Sounds: normal S1 and normal S2 Extremities: + edema (2+ pitting edema to the mid patel.) Gastrointestinal (Abdomen): normal bowel sounds, soft, nontender, no hepatosplenomegaly Skin: no rashes, warm and dry + ulcer (Stage 1 pressure ulcer in the superior gluteal cleft measuring 3.5 cm) and + scar (on chest from CAB) Neurologic: moves all extremities Psychiatric: A+Ox3, euthymic affect Orientation: alert, oriented to person, oriented to place and oriented to time Lymphatic: no cervical or axillary lymphadenopathy Results & Data Results & Data ([facility]) Vital Signs (Past 12 Hours) Vital Signs Temp Pulse Pulse Resp BP Pulse Ox 05/16/21 15:10 36.9 C 75 22 110/72 96 05/16/21 12:15 37.1 C 69 20 124/63 96 05/16/21 08:57 62 05/16/21 08:34 36.9 C 74 18 115/70 96
--- NOTE | 2021-05-16 18:32 | Billing Data ---
Date of Service May 16, 2021 Coding Level of Care Code 38149 Subseq Hosp Care Lvl 3
[2021-05-16] MEDS: TAMSULOSIN HCL 0.4 MG CAP PO SCH (20:19)
[2021-05-17] MEDS ORDERED: SIMETHICONE 80 MG CHEW PO PRN (00:48)
[2021-05-17] MEDS: VANCOMYCIN HCL 125 MG/2.5ML SOLN PO SCH ×2 (05:07→12:28)
[2021-05-17] MEDS: RASPBERRY SYRUP 5 ML UDP PO SCH ×2 (05:08→12:26)
[2021-05-17] MEDS: LEVOTHYROXINE SODIUM 75 MCG TABLET PO SCH (05:09)
[2021-05-17] MEDS: INSULIN ASPART 100 UNITS/ML 3 ML PEN SC SCH ×2 (07:39→12:25)
[2021-05-17 07:52] LABS: Mean Corpuscular Hgb Conc 30.3 g/dL (32-36); Mean Platelet Volume 8.6 fL (7.4-10.4); Platelet Count 232 K/uL (130-400)
[2021-05-17 08:16] LABS: BUN Creatinine Ratio 21.4 (10-20); Creatinine Clr Calc Pharmacy 41.7 ml/min; Est GFR (African American) 56.3 ml/min; Est GFR (Non-African American) 48.5 ml/min; Potassium 3.7 mmol/L (3.5-5.1)
[2021-05-17 08:34] LABS: Hematocrit (blood only) 29.4 % (42-52); Hemoglobin 8.9 g/dL (14.0-18.0); Mean Corpuscular Hemoglobin 32.2 pg (25-34); Mean Corpuscular Volume 106.5 fL (80-100); Nucleated RBC # (auto) 0.05 K/uL (0-0); Nucleated RBC % (auto) 0.9 %; RDW Coefficient of Variation 17.2 % (11.5-14.5); RDW Standard Deviation 64.3 fL (36.4-46.3); Red Blood Count 2.76 M/uL (4.7-6.1); White Blood Count 5.18 K/uL (4.8-10.8)
[2021-05-17] MEDS: BUMETANIDE 4 MG in SYRINGE 0 ML IV SCH (08:48)
[2021-05-17] MEDS: FERROUS SULFATE 325 MG TAB PO SCH (08:49)
[2021-05-17] MEDS: POTASSIUM CHLORIDE CRTAB 20 MEQ TABCR PO SCH (08:49)
[2021-05-17] MEDS: METOPROLOL SUCC 25MG EXT REL TAB PO SCH (08:49)
[2021-05-17] MEDS: APIXABAN 5 MG TABLET PO SCH (08:49)
[2021-05-17] MEDS: MULTIVITAMIN TAB PO SCH (08:50)
[2021-05-17] MEDS: ATORVASTATIN 40 MG TAB PO SCH (08:50)
[2021-05-17] MEDS: CYANOCOBALAMIN (VITAMIN B-12) 2,500 MCG TAB.SUBL SL SCH (08:50)
[2021-05-17] MEDS: PANTOprazole 40 MG TAB PO SCH (08:50)
[2021-05-17] MEDS: ASPIRIN 81 MG ECTAB PO SCH (08:50)
[2021-05-17] MEDS: SACCHAROMYCES BOULARDII 250 MG CAP PO SCH (08:50)
[2021-05-17] MEDS: CHOLECALCIFEROL 1,000 UNITS 25 MCG TAB PO SCH (08:50)
--- NOTE | 2021-05-17 18:13 | Discharge Summary ---
Date of Service May 17, 2021 Admission HPI Per Admitting Provider Pleasant 80-year-old gentleman with a history significant for CAD s/p CABG x 3, post-CABG atrial fibrillation, hypertension, dyslipidemia, and type 2 diabetes. Patient was brought to the ER from Dr. Adler's office. He was being seen for hospital follow up for CABG. Patient had a f/u by [facility] on 04/07/21 where he improved with increased lasix. His lower extremity edema had improved. Since then he has been at [facility]. However his lower extremity edema has worsened despite increased lasix dose of 80 mg. Patient reports he also has dypsnea on exertion and orthopnea. Patient also reports having diarrhea for the past week, about 4 times a day and he states stools are black. He attributes the color to his iron supplement.s He denies N/V, WEIGHT LOSS, abdominal pain, focal weakness, chest pain, syncope, near-syncope, palpitations, or bleeding. He was discharged on amiodarone and Eliquis due to postoperative atrial fibrillation. Recent Cardiac procedures: (noted from Cardiology) 1. Cardiac catheterization 04/16/1996: [facility] in [place]. Circumflex 85% status post PTCA with residual 20-25%. RCA tandem lesions 70-99% status post PTCA 30% with spiral dissection. Unable to deploy stent around the calcified bend of the circumflex. 2. Cardiac catheterization 02/25/2007 at [facility]: Mid LAD 50%. Proximal circumflex 50%. OM1 60%. Proximal RCA 30%. No . Moderately elevated LVEDP. Normal wall motion.. 3. Dobutamine stress echo 12/20/2010: Negative dobutamine echo and ECG at 93% MPHR. Rare PVC. 4. Echo 11/06/2017: Normal LV size, wall motion, systolic function. EF 60-65%. Mild LVH. Type 1 diastolic dysfunction. Moderate MAC. RVSP 23. Enhanced with IV definity. 5. Nuclear stress 01/19/2021: Abnormal suggesting inferior and inferolateral ischemia. Possible small infarct in the apical inferior and apical inferolateral territory. EF 65%. 6. Cardiac catheterization 02/21/2021 [facility]: Proximal LAD 30-40%. Mid LAD 50- 70% (IFR 0.82 with FFR of 0.71) at bifurcation of large diagonal. Mid circumflex 50-70% (FFR 0.78). Large Proximal OM3 30%. Proximal RCA 70%. Diffuse mid RCA 40-50%. LVEDP 10. No aortic stenosis. Profound bradycardia occurred with adenosine administration during circumflex evaluation. 7. CABG x3 03/14/2021 [facility]: MCCALL to LAD; SVG to RCA; SVG to OM1. Prolonged hospital stay complicated by postoperative AFib, ileus, delirium, and C diff. Admission Exam Per Admitting Provider Constitutional: WD/WN, vitals as above Eyes: PERRL, conjunctivae normal, anicteric sclerae ENMT: external ear and nose normal, oropharynx normal Neck: trachea midline, no thyromegaly Respiratory: normal respiratory effort, lungs clear to auscultation Cardiovascular: Rate/Rhythm: + irregularly irregular Vessels: + JVD Gastrointestinal (Abdomen): normal bowel sounds, soft, nontender, no hepatosplenomegaly Musculoskeletal: no cyanosis or clubbing, extremities motor strength 5/5 Skin: no rashes, warm and dry (except for redness around bilateral lower extremity) Neurologic: PERRL, EOMI, accommodation nl, no face palsy, no dysarthria Psychiatric: Orientation: alert Apperance: appropriately dressed Lymphatic: no cervical or axillary lymphadenopathy venous changes noted in bilateral lower extremity. Principal Diagnosis CHF Exacerbation Discharge Exam Constitutional WD/WN, vitals as above well nourished, cooperative and comfortable Eyes PERRL, conjunctivae normal, anicteric sclerae + anicteric sclerae Neck trachea midline, no thyromegaly trachea midline Respiratory normal respiratory effort, lungs clear to auscultation Cardiovascular RRR, no murmur, no edema Rate/Rhythm: regular rate, regular rhythm and + irregularly irregular Heart Sounds: normal S1 and normal S2 Extremities: + edema (2+ pitting edema to the mid patel.) Gastrointestinal (Abdomen) normal bowel sounds, soft, nontender, no hepatosplenomegaly Skin no rashes, warm and dry + ulcer (Stage 1 pressure ulcer in the superior gluteal cleft measuring 3.5 cm) and + scar (on chest from CAB) Neurologic moves all extremities Psychiatric A+Ox3, euthymic affect Orientation: alert, oriented to person, oriented to place and oriented to time Lymphatic no cervical or axillary lymphadenopathy Discharge Data Allergies Allergy/AdvReac Type Severity Reaction Status Date / Time Sulfa (Sulfonamide Allergy Unknown Unknown Verified 05/02/21 11:51 Antibiotics) reaction Iodinated Contrast Media Allergy Unknown Verified 05/02/21 11:51 Consultations 05/02/21 17:07 Consult Cardiology Stat 05/02/21 17:33 ED Decision to Admit Stat 05/04/21 12:55 [facility] CHF Program Referral Routine 05/04/21 15:47 Consult Anesthesiology Routine Procedures Performed Operation Date: 05/05/21 07:15 Actual Procedures p Cardioversion - Ranjit Adler MD Hospital Course (1) Acute heart failure with preserved ejection fraction: (1) Acute heart failure with preserved ejection fraction: -Physical exam showing improvement from yesterday, still some evidence of fluid overload. Breathing is stable. Most improvement since hospitalized. -I&O's showed -370 mL over 24 hours. These may not be accurate as his is incontinent and urinates in bed and on floor sometimes. -echo 05/05/21: EF 55-60%, mild concentric LVH, mild to moderate mitral regurge, moderate tricuspid regurge, nosignificant changes from echo 02/21/21 -Bumex 4mg po BID. - Continue heart healthy DM2 diet and start low sodium <2000 mg -Monitor renal function and electrolytes closely. --> Creatinine, K WNL. K 4.1-->3.7 over 24 hours. Supplemental K switched to 40 mEq twice daily. BUN at 26. (2) Persistent atrial fibrillation: -continue metoprolol succinate 25 mg bid for rate control and eliquis for anticoagulation (3)Sacral Ulcer -Stage 1 measuring 3.5 cm in diameter, continue to monitor. -Please do frequent position changes. (4) S/P CABG (coronary artery bypass graft): - No angina pectoris. - continue Metoprolol succinate 25 mg bid - Continue Atorvastatin 40 mg daily. - Cardio recommends cardiac rehab following discharge. (5) C. difficile diarrhea: - c. diff toxin and gene were positive. Hx. recurrent c. diff -Stools are solid today. cont PO vancomycin -when discharged, recurrent c. diff total dosing: vancomycin 125mg PO q6h x10-14 days, then 125mg PO q12h x7 days, then 125 PO qd x 7 days, then 125mg PO q2-3 days x2-8 weeks Total Time Total Time Spent Total Time Spent (In Minutes): 30 Discharge Plan Discharge Items Patient Disposition: Transfer Residential Fac Reason For Visit: ACUTE HFPEF Discharge Diagnosis: CHF Exacerbation Activity: Per Instructions section Non-emergency contact: Primary Care Provider and Animated Cartoons Painter Call non-emergency contact if: you have any medication questions Follow-up/Referrals: Reyna Larsen PA-C [Physician Car Worker Helper] - 05/18/21 2:00 pm (Congestive Heart Failure Program Appointment Information Early follow up is essential to managing your heart failure. An appointment has been scheduled for you with the [facility] within 7 days of discharge. Anticipate this visit to be 30-60 minutes long. Please expect a upholstery repairer phone call from one of our nurses approximately 48 hours from discharge. They will also be placing an order for lab work to be completed 1-2 days prior to your heart failure follow up appointment. Please be sure to have this done so we can go over the results when you come in. Office Location The cardiology office building is located in front of the hospital at [address]. Bring the following with you to your follow-up doctor appointments: Please bring your daily weight log any discharge paperwork all of your medication bottles with you to this visit. ) Ruslan Pereyra, DO [Primary Care Provider] - Diet: Heart Healthy and Low Sodium (2gm) Addtl Attending Provider Instructions: (1) Acute heart failure with preserved ejection fraction: -Physical exam showing improvement from yesterday, still some evidence of fluid overload. Breathing is stable. Most improvement since hospitalized. -I&O's showed -370 mL over 24 hours. These may not be accurate as his is incontinent and urinates in bed and on floor sometimes. -echo 05/05/21: EF 55-60%, mild concentric LVH, mild to moderate mitral regurge, moderate tricuspid regurge, nosignificant changes from echo 02/21/21 -Bumex 4mg po BID. - Continue heart healthy DM2 diet and start low sodium <2000 mg -Monitor renal function and electrolytes closely. --> Creatinine, K WNL. K 4.1-->3.7 over 24 hours. Supplemental K switched to 40 mEq twice daily. BUN at 26. -F/u with PCP and cardiology within one week. (2) Persistent atrial fibrillation: -continue metoprolol succinate 25 mg bid for rate control and eliquis for anticoagulation (3)Sacral Ulcer -Stage 1 measuring 3.5 cm in diameter, continue to monitor. -Please do frequent position changes. (4) S/P CABG (coronary artery bypass graft): - No angina pectoris. - continue Metoprolol succinate 25 mg bid - Continue Atorvastatin 40 mg daily. - Cardio recommends cardiac rehab following discharge. (5) C. difficile diarrhea: - c. diff toxin and gene were positive. Hx. recurrent c. diff -Stools are solid today. cont PO vancomycin -when discharged, recurrent c. diff total dosing: vancomycin 125mg PO q6h x10-14 days, then 125mg PO q12h x7 days, then 125 PO qd x 7 days, then 125mg PO q2-3 days x2-8 weeks Addtl Rum Processing Operator Provider Instructions: Call your Primary Care doctor if any of the following symptoms or problems start or get worse: * Shortness of breath or difficulty breathing * Wake up at night short of breath * Chest pain * Cough * Swelling of your hands, feet, or legs * More fatigued or tired with your normal activity * Palpitations - sudden fast heart beats WEIGHT * Weigh yourself every morning after using the bathroom. * Use the same scale. * Wear the same amount of clothing. * Write your weight down on a chart. * Call your Primary Care doctor if you gain more than 2-3 pounds in 1-2 days. MEDICATIONS * Use this discharge instruction sheet for medication instructions. * Take your medications at the time your doctor ordered. * Do not skip a dose of your medicines. * If you miss a dose of medicine, take it as soon as possible, but DO NOT DOUBLE A DOSE. * Read your medicine information when you get home. * Know all of the side effects of your medicine. If in doubt, ask your pharmacist * Call your Primary Care doctor's office if you have any side effects. * Be sure all of your doctors know what medicine and herbs you take (including cold, flu, and herbal medicine). Take the following with you to your follow-up doctor appointments: * Weight Chart * Medication List * List of questions Do not drink excessive alcohol, beer or wine. Pending Studies at Discharge: No Stand-Alone Forms: My [facility] Skilled Items Patient informed of condition?: Yes DNR: No Discharge Level of Care: Skilled Communicable Disease: Yes Discharge Prognosis: Stable Lines: None Urinary Catheter: No Medications and DC Order Prescriptions: New metoprolol succinate 25 mg Tablet Extended Release 24 Hr 25 mg PO BID Qty: 60 RF: 0 potassium chloride 20 mEq tablet extended release 20 meq PO BID Qty: 60 RF: 3 bumetanide 2 mg tablet 4 mg PO BID Qty: 60 RF: 0 vancomycin [Vancocin] 125 mg capsule 125 mg PO UD Qty: 90 RF: 0 Continued aspirin 81 mg tablet,delayed release (DR/EC) 81 mg PO DAILY Qty: 30 RF: 0 metformin 850 mg tablet 850 mg PO BID RF: 0 multivitamin [Multiple Vitamins] tablet 1 tab PO DAILY RF: 0 tamsulosin 0.4 mg capsule 0.4 mg PO BID RF: 0 Eliquis 5 mg tablet 5 mg PO BID RF: 0 ferrous sulfate 325 mg (65 mg iron) tablet 325 mg PO TID RF: 0 Saccharomyces boulardii [Florastor] 250 mg capsule 250 mg PO DAILY RF: 0 levothyroxine 75 mcg capsule 75 mcg PO DAILY RF: 0 melatonin 5 mg tablet 10 mg PO HS PRN (Reason: Sleep) RF: 0 omeprazole 20 mg capsule,delayed release(DR/EC) 20 mg PO DAILY RF: 0 thiamine HCl (vitamin B1) 100 mg tablet 100 mg PO DAILY RF: 0 cholecalciferol (vitamin D3) [Vitamin D3] 25 mcg (1,000 unit) Tablet 25 mcg PO DAILY RF: 0 cyanocobalamin (vitamin B-12) 5,000 mcg Capsule 5,000 mcg PO DAILY RF: 0 Discontinued amiodarone 200 mg tablet 200 mg PO DAILY RF: 0 furosemide [Lasix] 80 mg tablet 80 mg PO DAILY RF: 0 metoprolol succinate 25 mg tablet extended release 24 hr 12.5 mg PO BID RF: 0 potassium chloride 20 mEq tablet extended release 20 meq PO DAILY RF: 0 quetiapine [Seroquel] 25 mg tablet 25 mg PO DAILY RF: 0 Discharge Orders: Discharge Order (Routine); Ordered 05/17/21 Ordered By: Christian Kimbrough Admission Data Admit Date/Time: 05/02/21 18:45 Attending Provider: Raphael Smith Admit Provider: Bharathi Montenegro Primary Care Provider: Ruslan Pereyra Other Providers: Ranjit Adler ; Bharathi Montenegro ; [facility] ; Reyna Larsen ; Lolly Tena ; Migdalia Flores ; Rachel Land ; Char Giron ; Patito Hwang ; Juan Antonio Contreras ; Jamir Atkins ; Olivier Ceballos ; Shar Roberts ; Melissa Roberts ; Clint Sharma ; Reyna Youssef ; Noel Pereyra ; Christian Constantino ; Edwin Harper ; Salazar Stewart ; Jenny Liu ; Ulysses Pang ; Chely Kingston ; Dalila Pang ; Tyler Jaramillo ; Petra Newman ; Sekou Quigley ; Roro Polo ; Elma Dimas ; Petra Wynn ; Shirley Marsh ; Jong Y[place] ; Sarah Morgan ; Yohana Becker ; Kiera Andrade ; Kandice Richards A ; Shar Richards V ; Asher Monterroso ; Migdalia Kiran ; Anthony Donahue ; July Choudhary ; Cathleen Dias ; Shar Flowers ; Rc Liu ; Jeff More ; Princess [place] ; Kiera Wu ; Rafael Carvalho ; Kenan Stewart ; Lucrecia Ramos ; Nicolás Xiao ; Shawn Herrera ; Aaron Valadez ; Jermaine Liu ; Nicolás Talamantes ; Juan Antonio Singleton Jr ; Brandie Cisse ; Anjali Sharp ; Raphael Smith ; Edie Garcia Other Interventions: Discharge Summary Assessment (RN) Last Done: 05/17/21 12:12 Supervising Physician Co-Signing Physician Notes I personally examined the patient and verified all shankar points of history and exam, discussed case, and agree with decision making with Dr Kimbrough. No new issues. Happy to be going to [facility] for rehab. Vitals noted, in general he is awake and alert hard of hearing but no distress. HEENT normocephalic atraumatic mucous membranes moist. Breathing unlabored no accessory muscle use good effort. Skin shows no rashes no pallor or icterus. HFpEF - diuresing. continue current 4 mg of Bumex twice daily as an outpatient, continue to follow closely/follow labs, anticipate a need for adjusting diuretic dosing even after dischargebased on his fluid status and BMP. Cdiff - improved on vanco. given recurrence - prolonged course will be prescribed. CASEY/OHS - would likely benefit a lot from Bipap but thus far has been refusing05/16 we had an extensive discussion on why this is the case, and risk benefits, as well as how trial of BiPAP would likely be different in the outpa tient setting given more masks and devices are available usually. anticoagulated otherwise as above Dispositionstable for SNF. Rehab emphasis.
--- NOTE | 2021-05-17 18:43 | Billing Data ---
Date of Service May 17, 2021 Coding Level of Care Code D/C DAY MANAGEMENT <30 MINS
== END 2021-05-17 13:15 | DRG 292 ==
LOC: ED 14:17 → SUATTDRO 18:45 → 2S 18:45